=== PATIENT | female | born 1995 | race Two or more races ===

== ENCOUNTER → 2020-07-21 | Outpatient (CLI) | payer BC, SELFPAY ==
[2020-07-24 10:15] LABS: HPV Reflexed? NOT INDICATED
== END | disposition home or self-care (01) ==
PROVIDERS: Visit Provider Student in an Organized Health Care Education/Training Program
DX: Z12.4 Encounter for screening for malignant neoplasm of cervix (principal)
CPT/HCPCS: 88175; G0145

== ENCOUNTER 2025-03-18 21:43 | Inpatient (IN) | payer OTHER, SELFPAY ==
[2025-03-18] VITALS (10 sets, daily range): BP systolic 110–137; BP diastolic 62–82; PULSE 73–101; RESP 16–18; TEMP 36.5; O2SAT 93–100; BMI 30.9
[2025-03-18 22:05] LABS: ROM Internal Control Test YES-OK TO RESULT pt. (Internal QC)
[2025-03-18 22:06] LABS: Record Kit Lot#, ROM+ K3358
[2025-03-18 22:10] LABS: ROM Patient Test POSITIVE (Negative)
[2025-03-18 22:11] LABS: Hematocrit 36.4 % (37-47); Hemoglobin 12.6 g/dL (12.0-15.0); Immature Granulocytes Count 0.330 X10^3/uL (0.0-0.0); Mean Corp Hgb Conc 34.6 g/dL (32-36); Mean Corpuscular Volume 82.0 fL (81-99); Mean Platelet Vol. 11.6 fl (6.2-12.0); NRBC Flagged by Analyzer 0 % (0-5); Platelet Count 165 K/mm3 (150-450); RBC Distribution Width CV 14.1 % (11.6-14.6); RBC Distribution Width SD 41.0 fl (35.1-43.9); Red Blood Count 4.44 M/mm3 (4.2-5.4); White Blood Count 15.6 K/mm3 (4.4-11.0)
--- OUTSIDE RECORDS SUMMARY | 2025-03-18 22:25 | XMS RPT_ITS | CCD ---
Author Organization [facility] Care Team Providers Care Police Magistrate Name Role Phone Yoil Willis Unavailable Unavailable Yoli Willis Unavailable UnavailBrenton Jaramillo Unavailable Unavailable Anne-Marie Armstrong Unavailable UnavailRIVAS Ortiz Attending Unavailable RIVAS SAUCEDA Primary Care Unavailable RIVAS SAUCEDA Admitting Unavailable Yahaira Watts MD Primary Care Provider Unavailable Primary Care Provider UnavailYahaira Fagan MD Primary Care Provider Unavailable Primary Care Provider UnavailYahaira Fagan MD Primary Care Provider [phone] MARIA DEL CARMEN PÉREZ Attending Unavailable YAHAIRA WATTS Primary Care Unavailable [facility] PROVIDER, [facility] Referring Unavailable YAHAIRA WATTS Primary Care Unavailable Regina Sales Attending Unavailable Regina Sales Admitting Unavailable REGINA SALES Attending Unavailable SELF Referring Unavailable REGINA SALES Referring Unavailable DORIS RAMIREZ Attending Unavailable REGINA SALES Referring Unavailable REGINA SALES Attending Unavailable KACEY VO Attending Unavailable GILBERT TAO Attending Unavailable HAYARED, MEME Referring Unavailable KACEY VO Attending Unavailable DORIS RAMIREZ Attending Unavailable HAURY, MEME Referring Unavailable REGINA SALES Attending Unavailable REGINA SALES Attending Unavailable KACEY VO Attending Unavailable HAURY, MEME Referring Unavailable MIMI GOTTI Attending Unavailable SARATH HALE Referring Unavailable REGINA SALES Referring Unavailable SARATH HALE Attending Unavailable SARATH HALE Referring Unavailable SARATH HALE Attending Unavailable MIMI GOTTI Referring Unavailable MIMI GOTTI Referring Unavailable HAURY, MEME Attending Unavailable REGINA SALES Attending Unavailable HAURY, MEME Referring Unavailable Allergies Allergy Classification Reported Allergen(s) Allergy Type Date of Onset Reaction(s) Facility (20 sources) Clindamycin; Translations: [CLINDAMYCIN] Drug Allergy 01-08-20 20 Hives [facility] (20 sources) Sulfamethoxazole / Trimethoprim Drug Allergy 08-07-20 Hives, Swelling, Unknown [facility] Work Phone: (4 sources) Seasonal allergy Propensity to adverse reactions to drug 11-17-19 [facility] (4 sources) *Animal Dander Propensity to adverse reactions to substance 11-17-19 [facility] (20 sources) Amoxicillin; Translations: [AMOXICILLIN] Drug Allergy 04-11-20 [facility] Work Phone: (20 sources) Cat; Translations: [CATS] Allergy to substance 07-28-20 11 Other: See Comments [facility] Work Phone: (20 sources) Dog; Translations: [DOGS] Allergy to substance 07-28-20 11 Other: See Comments [facility] Work Phone: (20 sources) Doxycycline; Translations: [DOXYCYCLINE] Drug Allergy 04-11-20 20 Unknown [facility] Work Phone: (20 sources) Seasonal allergy; Translations: [SEASONAL ALLERGIES] Allergy to substance 07-28-20 11 Other: See Comments [facility] Work Phone: (1 source) Sulfamethoxazole / Trimethoprim; Translations: [SULFAMETHOXAZOLE-T RIMETHOPRIM] Drug Allergy 08-07-20 [facility] Repository Medications Current Medications Medication Drug Class(es) Dates Sig (Normalized) Sig (Original) 24 hr amphetamine aspartate 3.75 mg / amphetamine sulfate 3.75 mg / dextroamphetamine saccharate 3.75 mg / dextroamphetamine sulfate 3.75 mg extended release oral capsule (16 sources) Central Nervous System Stimulant Start: 08-25-2023 take 1 capsule by mouth once daily in the morning amphetamine-dextr oamphetamine XR 15 MG Cap SR 24HR capsule Indications: Primary narcolepsy with cataplexy , Sleep dysfunction with arousal disturbance Take 1 capsule by mouth daily every morning. 90 capsule 08/25/2023 Active Start: 04-26-2017 End: 08-07-2024 take 1 capsule by mouth every twenty-four hours amphetamine-dextroamphetamine XR (ADDERA LL XR) 15 mg 24 hr capsule Take by mouth. 04/26/2017 08/07/2024 Discontinued (Course of therapy completed) Start: 04-26-2017 End: 11-04-2022 take 1 capsule by mouth once daily in the morning amphetamine-dextroamphetamine XR 15 MG C ap SR 24HR capsule Indications: Primary narcolepsy with cataplexy , Sleep dysfunction with arousal disturbance Take 1 capsule by mouth daily every morning. 30 capsule 0 12/07/2022 Active Comment on above: Take by mouth. Take 1 capsule by mo uth once daily for 7 days. azithromycin 250 mg oral tablet (1 source) Macrolide Antimicrobial Start: 06-07-20 End: 06-12-20 azithromycin (ZITHROMAX Z-LATOYA) 250 mg tablet Indications: Lower resp. tract infection Take 2 tablets day one, then, 1 tablet daily until gone. 6 tablet 06/07/2024 06/12/2024 Active benzonatate 100 mg oral capsule (1 source) Non-narcotic Antitussive Start: 06-07-20 End: 06-17-20 take 2 capsules by mouth three times daily as needed benzonatate (TESSALON PERLE) 100 mg capsule Indications: Acute cough Take 2 capsules by mouth three times a day as needed for up to 10 days. 60 capsule 06/07/2024 06/17/2024 Active Breast Pump (8 sources) Start: 01-09-20 25 End: 01-09-20 Breast Pump Indications: 30 weeks gestation of (HCC) Use as directed 1 each 01/08/2025 01/08/2026 Active cefdinir 300 mg oral capsule (1 source) Cephalosporin Antibacterial Start: 07-06-20 23 End: 07-13-20 take 1 capsule by mouth twice daily cefdinir (OMNICEF) 300 mg capsule Take 1 capsule by mouth two times a day for 7 days. 14 capsule 0 07/06/2023 07/13/2023 Active Comment on above: Take 1 capsule by mo uth two times a day for 7 days. ibuprofen 20 mg/ml oral suspension (3 sources) Nonsteroidal Anti-inflammatory Drug take 400 mg by mouth every six hours as needed ibuprofen 100 MG/5ML oral suspension Take 20 mL by mouth every 6 hours as needed. 0 Active Rhpopspo-Oy-Zzb-Fe-F A tab (19 sources) Start: 08-07-20 take 1 tablet by mouth once daily Ulxnbcuz-Vq-Gsp-Fe-F A tab Take 1 tablet by mouth once daily. With DHA and folic acid as covered by insurance. 30 tablet 5 08/07/2024 Active Vit-Fe Uum-UN-Sjgjm (PNV Plus Multivit+DHA) 27-1 & 312 MG Misc (1 source) Start: 08-07-20 24 Vit-Fe Cwv-OP-Gtimm (PNV Plus Multivit+DHA) 27-1 & 312 MG Misc TAKE 1 TABLET AND 1 CAPSULE BY MOUTH ONCE A DAY 08/07/2024 Active Completed/Discontinued Medications Medication Drug Class(es) Dates Sig (Normalized) Sig (Original) aspirin 81 mg delayed release oral tablet (6 sources) Platelet Aggregation Inhibitor, Nonsteroidal Anti-inflammatory Drug Start: 08-07-2024 End: 10-29-2024 take 1 tablet by mouth once daily aspirin, enteric coated (ECOTRIN LOW STRENGTH) 81 mg EC tablet Take 1 tablet by mouth once daily. 90 tablet 3 08/07/2024 10/29/2024 Discontinued doxycycline hyclate 100 mg oral tablet (1 source) Tetracycline-class Drug Start: 09-24-2019 take 1 tablet by mouth twice daily Doxycycline Monohydrate 100 MG Oral Tablet TAKE 1 TABLET TWICE DAILY. Quantity: 14 Refills: 0 Anne-Marie Armstrong DO Start : 24-Sep-2019 Active Ethinyl Estradiol / Norgestrel (4 sources) Estrogen Start: 05-04-2019 End: 11-04-2022 take 1 tablet by mouth once daily CRYSELLE 0.3-30 mg-mcg per tablet Take 1 tablet by mouth once daily. 0 05/04/2019 11/04/2022 Discontinued Start: 12-18-2018 Cryselle-28 0. 3-30 MG-MCG Oral Tablet Quantity: 56 Refills: 0 DO Start : 18-Dec-2018 Active Start: 12-18-2018 Cryselle-28 0. 3-30 MG-MCG Oral Tablet Quantity: 56 Refills: 0 Start : 18-Dec-2018 Active Comment on above: Take 1 tablet by serge th once daily. famotidine 20 mg oral tablet (3 sources) Histamine-2 Receptor Antagonist Start: End: take 1 tablet by mouth twice daily famotidine (PEPCID) 20 mg tablet Take 1 tablet by mouth two times a day. 02/22/2025 03/04/2025 Discontinued (Discontinued by Patient) fluconazole 150 mg oral tablet (1 source) Azole Antifungal Start: take 1 tablet by mouth once Fluconazole 150 MG Oral Tablet TAKE 1 TABLET 1 TIME ONLY. Quantity: 1 Refills: 1 Brenton Boggs MD Start : 28-Dec-2019 Active loratadine 10 mg oral tablet (6 sources) Start: End: take 1 tablet by mouth once daily as needed loratadine (CLARITIN) 10 mg tablet Take 1 tablet by mouth once daily as needed. FOR ALLERGY SYMPTOMS 30 tablet 0 03/10/2016 08/07/2024 Discontinued (Course of therapy completed) Comment on above: Take 1 tablet by serge th once daily as needed. FOR ALLERGY SYMPTOMS mupirocin 0.02 mg/mg topical ointment (1 source) RNA Synthetase Inhibitor Antibacterial Start: Mupirocin 2 % External Ointment APPLY A SMALL AMOUNT 3 TIMES DAILY DIRECTED for 7 days Quantity: 1 Refills: 0 Patti Anne-Marie RIZZO Start : 24-Sep-2019 Active 22 GM Tube phenazopyridine hydrochloride 100 mg oral tablet (1 source) Start: End: take 1 tablet by mouth every eight hours as needed phenazopyridine (PYRIDIUM) 100 mg tablet Take 1 tablet by mouth three times daily as needed. 12 tablet 0 04/11/2020 11/04/2022 Discontinued Comment on above: Take 1 tablet by serge th three times daily as needed. PNV no.66-iron,carbonyl-FA -dha 20 mg iron- 1 mg-320 mg cap (5 sources) End: take 1 capsule by mouth once daily PNV no.66-iron,carbonyl-FA -dha 20 mg iron- 1 mg-320 mg cap Take 1 capsule by mouth once daily. 10/29/2024 Discontinued take 1 capsule by mo uth once daily PNV no.66-iron,tdkzlcrn-FY-wcq 20 mg iro n- 1 mg-320 mg cap Take 1 capsule by mouth once daily. Active vit37/iron/folic acid (PRENATA ORAL) (1 source) End: 08-07-2024 take 1 capsule by mouth once daily vit37/iron/folic acid (PRENATA ORAL) Take 1 capsule by mouth once daily. 08/07/2024 Discontinued Problems Active Problems Problem Classification Problem Date Documented Date Episodic/Chronic Allergic reactions (16 sources) Allergy to amoxicillin; Translations: [Allergy status to penicillin] Onset: 11-26-2024 11-26-2024 Episodic E Codes: Adverse effects of medical drugs (2 sources) Penicillin adverse reaction; Translations: [Adverse effect of penicillins, sequela] Onset: 01-10-2025 01-10-2025 Episodic Mycoses (1 source) Candidiasis of vagina; Translations: [Yeast vaginitis] Episodic Other connective tissue disease (3 sources) Impingement syndrome of shoulder region; Translations: [Impingement syndrome of left shoulder] Episodic Other inflammatory condition of skin (1 source) Pityriasis rosea; Translations: [Pityriasis rosea] Chronic Other lower respiratory disease (1 source) Lower respiratory tract infection; Translations: [Unspecified acute lower respiratory infection] 06-07-2024 Episodic Other lower respiratory disease (1 source) Cough; Translations: [Acute cough] 06-07-2024 Episodic Other nervous system disorders (3 sources) Narcolepsy; Translations: [Narcolepsy] Chronic Other nervous system disorders (20 sources) Cataplexy and narcolepsy; Translations: [Narcolepsy with cataplexy] Onset: 07-29-2016 Chronic Other nervous system disorders (3 sources) Superficial peroneal neuropathy; 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, right lower limb] Onset: 01-05-2018 01-05-2018 Chronic Other nervous system disorders (1 source) Disorder of right superficial peroneal nerve; 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, right lower limb] Onset: 01-05-2018 01-05-2018 Chronic Other nervous system disorders (1 source) Narcolepsy with cataplexy; Translations: [Narcolepsy with cataplexy] Onset: 09-05-2024 Chronic Other non-traumatic joint disorders (3 sources) Disorder of acromioclavicular joint; Translations: [AC joint arthropathy] Episodic Other and delivery including normal (20 sources) First trimester ; Translations: [Encounter for supervision of normal first , first trimester] Onset: 08-07-2024 08-07-2024 Episodic Other screening for suspected conditions (not mental disorders or infectious disease) (9 sources) Cancer cervix screening status; Translations: [Encounter for screening for malignant neoplasm of cervix] Onset: 09-04-2024 08-07-2024 Episodic Other skin disorders (1 source) Folliculitis; Translations: [Folliculitis] Episodic Other upper respiratory infections (2 sources) Viral upper respiratory tract infection; Translations: [Acute upper respiratory infection, unspecified] 07-04-2023 Episodic Otitis media and related conditions (1 source) Acute left otitis media; Translations: [Otitis media, unspecified, left ear] 07-06-2023 Episodic Residual codes; unclassified (2 sources) Sleep dysfunction with arousal disturbance; Translations: [Other sleep disorders] Chronic Residual codes; unclassified (1 source) Gestation period, 8 weeks; Translations: [8 weeks gestation of ] 08-06-2024 Episodic Residual codes; unclassified (2 sources) Gestation period, 12 weeks; Translations: [12 weeks gestation of ] 09-04-2024 Episodic Residual codes; unclassified (3 sources) Gestation period, 16 weeks; Translations: [16 weeks gestation of ] 10-02-2024 Episodic Residual codes; unclassified (2 sources) Gestation period, 20 weeks; Translations: [20 weeks gestation of ] 10-29-2024 Episodic Residual codes; unclassified (2 sources) Gestation period, 24 weeks; Translations: [24 weeks gestation of ] 11-26-2024 Episodic Residual codes; unclassified (1 source) Gestation period, 28 weeks; Translations: [28 weeks gestation of ] 12-24-2024 Episodic Residual codes; unclassified (2 sources) Gestation period, 30 weeks; Translations: [30 weeks gestation of ] 01-10-2025 Episodic Residual codes; unclassified (1 source) Gestation period, 33 weeks; Translations: [33 weeks gestation of ] 01-30-2025 Episodic Residual codes; unclassified (1 source) Gestation period, 35 weeks; Translations: [35 weeks gestation of ] 02-13-2025 Episodic Residual codes; unclassified (1 source) Gestation period, 37 weeks; Translations: [37 weeks gestation of ] 02-22-2025 Episodic Residual codes; unclassified (2 sources) Gestation period, 38 weeks; Translations: [38 weeks gestation of ] 03-01-2025 Episodic Residual codes; unclassified (1 source) 40 weeks gestation of ; Translations: [40 weeks gestation of (HCC)] Onset: 03-18-2025 Episodic Residual codes; unclassified (1 source) 39 weeks gestation of ; Translations: [39 weeks gestation of (HCC)] Onset: 03-13-2025 Episodic Residual codes; unclassified (1 source) 38 weeks gestation of ; Translations: [38 weeks gestation of (HCC)] Onset: 03-04-2025 Episodic Residual codes; unclassified (1 source) 37 weeks gestation of ; Translations: [37 weeks gestation of (HCC)] Onset: 02-22-2025 Episodic Residual codes; unclassified (1 source) 35 weeks gestation of ; Translations: [35 weeks gestation of (HCC)] Onset: 02-13-2025 Episodic Residual codes; unclassified (1 source) 33 weeks gestation of ; Translations: [33 weeks gestation of (HCC)] Onset: 01-30-2025 Episodic Residual codes; unclassified (2 sources) 30 weeks gestation of ; Translations: [ with 30 completed weeks gestation (HCC)] Onset: 01-08-2025 Episodic Residual codes; unclassified (1 source) 24 weeks gestation of ; Translations: [24 weeks gestation of (HCC)] Onset: 12-24-2024 Episodic Residual codes; unclassified (1 source) 28 weeks gestation of ; Translations: [28 weeks gestation of (HCC)] Onset: 12-24-2024 Episodic Syncope (2 sources) Vasovagal syncope; Translations: [Syncope and collapse] Onset: 01-10-2025 01-10-2025 Episodic Unclassified (2 sources) Invalid ICD10 Description; Translations: [Invalid ICD10 Description] Onset: 09-02-2020 Unclassified (1 source) COVID-19; Translations: [COVID-19] Onset: 09-02-2020 Unclassified (19 sources) [facility] Education - COMMON Onset: 08-07-2024 08-07-2024 Unclassified (19 sources) Education - [place] Onset: 08-07-2024 08-07-2024 Past or Other Problems Problem Classification Problem Date Documented Da te Episodic/Chronic Fracture of lower limb (4 sources) Closed fracture ankle, lateral malleolus, low ; Translations: [Displaced fracture of lateral malleolus of right fibula, sequela] Onset: 01-05-2018 01-05-2018 Episodic Other non-traumatic joint disorders (20 sources) Pain in lower limb; Translations: [Pain in unspecified knee] Onset: 06-14-2011 Resolved: 10-29-2024 06-14-2011 Episodic Other skin disorders (20 sources) Acne; Translations: [Other acne] Onset: 03-05-2015 03-05-2015 Episodic Residual codes; unclassified (20 sources) Daytime somnolence; Translations: [Other hypersomnia] Onset: 02-12-2016 Resolved: 10-02-2024 02-12-2016 Chronic Residual codes; unclassified (1 source) 16 weeks gestation of ; Translations: [16 weeks gestation of ] Onset: 10-29-2024 Episodic Residual codes; unclassified (1 source) 12 weeks gestation of ; Translations: [12 weeks gestation of ] Onset: 09-04-2024 Episodic Residual codes; unclassified (1 source) 8 weeks gestation of ; Translations: [8 weeks gestation of ] Onset: 08-07-2024 Episodic Unclassified (4 sources) Onset: 01-27-2018 Resolved: 01-27-2018 01-27-2018 NEGATED: Highlighted row has not occurred!Residual codes; unclassified (2 sources) Disease Episodic Results Test Name Value Interpretation Reference Range Facility URINE OB DIP B/Oon 5 Glucose Ql (U) Negative Neg mg/dL [facility] Protein.monoclonal (U) [Mass/Vol] Negative Neg mg/dL [facility] URINE OB DIP B/Oon 5 Glucose Ql (U) Negative Neg mg/dL [facility] Interpretation and review of laboratory results Normal [facility] Protein.monoclonal (U) [Mass/Vol] Negative Neg mg/dL [facility] URINE OB DIP B/Oon 5 Glucose Ql (U) Negative Neg mg/dL [facility] Interpretation and review of laboratory results Normal [facility] Protein.monoclonal (U) [Mass/Vol] Negative Neg mg/dL [facility] ROUTINE, GROUP B ST REPTOCOCCUS BY PCRon 02-13-2025 ROUTINE, GROUP B STREPTOCOCCUS BY PCR Not detected Normal [facility] Comment on above: Performed By: #### T SPN #### CC [facility] BLOOD BANK [facility] [id number] [address] [place] [address] STATES OF [facility] URINE OB DIP B/Oon 5 Glucose Ql (U) Negative Neg mg/dL [facility] Interpretation and review of laboratory results Normal [facility] Protein.monoclonal (U) [Mass/Vol] Negative Neg mg/dL [facility] CNOVon 01-10-2025 CNOV Office Visit (ALAPW) -- TIFFANIE MERCADO ([id number]) 1995 F Date Time Provider Department 01/10/25 1:00 PM GILBERT TAO ALAPW During your visit today, we recorded the following information about you: Pulse Respiration Blood pressure Weight 79/minute 16/minute 105/68 89.7 kg Shannen Swift LPN 01/10/2025 4:15 PM Signed Patients OB referred patient to have penicillin testing. Patient had a hives and throat swelling when taking multiple antibiotics. Patient unsure which medication specifically caused the reaction. Tara Lisa, RN 01/10/2025 4:15 PM Signed Called to room, patient passed out in her chair, garbled speech. Assisted patient to the floor with Shannen Swift LPN. Elevated feet, vitals HR 74 BP 118/75 Pox 98.Patient given water. Beginning to speak more clearly within approx 5 min. Vitals HR 81 BP 105/74 Pox Gilbert Tao DO 01/10/2025 4:15 PM Signed Allergy and Immunology 01/10/2025 REFERRING PROVIDER: Meme Valero APRN.PROFESSOR OF COUNSELING Consultation requested for an allergy/immunology evaluation. My final impression and recommendations will be communicated back to the requesting physician by way of shared medical record, fax, or US mail. CHIEF COMPLAINT: drug allergy evaluation HISTORY OF PRESENT ILLNESS: Drug Reaction Index reaction date: in her early 20s Index reaction medication/dose#: unsure. She was being treated for frequent staph infections and had been given numerous different courses of antibiotics. Not sure of exact symptoms. Bactrim, doxy, amoxicillin, and clindamycin all listed. She recalls some causing hives and possible that amoxicillin caused diffuse hives and throat swelling. Denies tongue, lip, eye swelling. Denies respiratory, CV, or GI symptoms. No blistering or sloughing. No mucosal involvement. Unsure of what dose # Timing of symptom onset: cannot recall details History of narcolepsy, well controlled. No known needlephobia Did report recent onset of nasal congestion. Thought it was allergies at first on Tuesday, but then symptoms seemed to persist. No fever, cough, GI symptoms MY[facility] COLLATERAL ALLERGY HISTORY Question 01/10/2025 12:54 PM EDT - Filed by Shannen Swift LPN Do you have or have you ever been diagnosed with allergic rhinitis? No Have you ever been skin tested for allergies? No Do you have asthma? No Do you have or have you ever been diagnosed with eczema or atopic dermatitis? No Do you get frequent sinus infections? No Do you have nasal polyps? No Do you have or have you ever been diagnosed with urticaria / hives? No Do you have or have you ever been diagnosed with angioedema? No Do you have or have you ever been diagnosed with food allergy? No Do you have or have you ever been diagnosed with stinging insect allergy (bee, wasp, yellow jacket, hornet)? No Are you allergic to Penicillin antibiotics? 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 PAST MEDICAL HISTORY Diagnosis Date Narcolepsy (HCC) FAMILY HISTORY Problem Relation Age of Onset Aneurysm Mother 45 AVMalformation other (brain tumor) Mother 44 Hemangioblastoma Hypertension Maternal Grandmother Hypertension Maternal Grandfather Diabetes Paternal Grandmother other (high cholesterol) Paternal Grandmother Diabetes Maternal Uncle type 1 Heart Maternal Uncle heart attack age 46 years PAST SURGICAL HISTORY Procedure Laterality Date PAST SURGICAL HISTORY OF abscess of groin drained when an infant PAST SURGICAL HISTORY OF 01/27/2018 right ankle, hardware removed from fracture of 2015 REPAIR OF ANKLE FRACTURE Right 05/2015 Current Outpatient Medications Medication Sig Plgaconv-Op-Idf-Fe-FA tab Take 1 tablet by mouth once daily. With DHA and folic acid as covered by insurance. Breast Pump Use as directed No current facility-administered medications for this visit. ALLERGIES Allergen Reactions Amoxicillin Hives Pt reported throat swelling Bactrim [Sulfametho* Hives Cats Other: See Comments Sneezing, itchy eyes, cough Clindamycin Hives Dogs Other: See Comments Sneezing, itchy eyes, cough Doxycycline Unknown Seasonal Allergies Other: See Comments Sneezing, itchy eyes PHYSICAL EXAM: BP 105/68 Pulse 79 Resp 16 Wt 89.7 kg (197 lb 12.8 oz) LMP 06/08/2024 SpO2 97% BMI 28.80 kg/m? GENERAL: alert, oriented, cooperative with exam HEAD: atraumatic, normocephalic EYES: conjunctivae normal, extraocular movements in tact, pupils equal, round, and reactive, EARS: ext (more content not included)... Normal [facility] 01-10-2025 CNPN Telephone (OBGYWM) -- TIFFANIE MERCADO ([id number]) 1995 F Date Time Provider Department 01/10/25 DORIS RAMIREZ During your visit today, we recorded the following information about you: Jill Suarez RN 01/10/2025 3:47 PM Signed Patient is 30w6d. Patient was seen for allergy testing today. Notes from Dr in office: Called to room, patient passed out in her chair, garbled speech. Assisted patient to the floor with Shannen Swift LPN. Elevated feet, vitals HR 74 BP 118/75 Pox 98.Patient given water. Beginning to speak more clearly within approx 5 min. Vitals HR 81 BP 105/74 Pox -see Epic notes. Patient denies any injury to abdomen or any other part of her body. Baby is active. Denies any bleeding, or loss of fluids, or CTX. Next appointment 01/30. Patient wondering if any concerns regarding baby. Patient reassured. She is to call/come in if baby is not active, loss of fluids, bleeding, development of CTX or PRN problems. Recommended patient push fluids. Call is any further advice Doris Ramirez MD 01/10/2025 3:53 PM Signed Rest and stay hydrated. No further advice Allergies As of Date: 01/10/2025 Noted Allergy Reaction AMOXICILLIN 04/11/2020 4 - Hives Comments: Pt reported throat swelling BACTRIM (SULFAMETHOXAZOLE-TRIMETH* 08/07/2019 4 - Hives CATS 07/28/2011 14 - Other: See Comments Comments: Sneezing, itchy eyes, cough CLINDAMYCIN 01/08/2020 4 - Hives DOGS 07/28/2011 14 - Other: See Comments Comments: Sneezing, itchy eyes, cough DOXYCYCLINE 04/11/2020 16 - Unknown SEASONAL ALLERGIES 07/28/2011 14 - Other: See Comments Comments: Sneezing, itchy eyes Date Reviewed: 01/10/2025 Reviewed by: Shannen Swift LPN - Fully Assessed Reason for Visit: Syncope [106] Prescriptions as of 01/10/2025 - Breast Pump Use as directed - Zpganpuz-Gj-Zjd-Fe-FA tab Take 1 tablet by mouth once daily. With DHA and folic acid as covered by insurance. 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 Encounter for supervision of normal i*08/07/2024 Penicillin allergy [Z88.0] 01/08/2025 Encounter Status:Closed by POONAM JOHNSON on 01/10/25 Normal [facility] GESTATIONAL GLUCOSE SCREEN, 1-HOUR, 50 GRAM, NON-FASTINGon 12-27-2024 Glucose [Mass/Vol] 116 mg/dL Normal 74-134 [facility] Comment on above: Order Comment: Roldan morgan Type: BLOOD SPECIMEN [facility]ing [facility] Address: [address] [place] [address] Result Comment: [facility] Congress of Obstetricians and Gynecologists (Zoran/Rosio) guidelines state a gestational diabetes mellitus positive screen is made, in women not previously diagnosed with overt diabetes, when the 1 hr plasma glucose level is equal to or above 140 mg/dL. [facility] Procurement Inspector and [facility] [place] recommends a 135 mg/dL cutoff. Performed By: #### T SPN #### [facility] CLIA [id number] [address] [place], [place] [address] [address] [place] CBC W Auto Differential pane l (Bld)on 12-24-2024 Basophils (Bld) [#/Vol] 0.05 10*3/uL Normal <0.11 [facility] Comment on above: Order Comment: Speci men Type: BLOOD SPECIMENOrdering Facility: [facility] Address: [address] [place] [address] Performed By: #### 5 7021-8 ####[facility] LABCLIA [id number] [place] [address] [place] Basophils/100 WBC (Bld) 0.4 % Normal [facility] Comment on above: Order Comment: Speci men Type: BLOOD SPECIMENOrdering Facility: [facility] Address: [address] [place] [address] Performed By: #### 5 7021-8 ####[facility] LABCLIA [id number] [place] [address] [place] Differential cell count method Nom (Bld) Auto Normal [facility] Comment on above: Order Comment: Speci men Type: BLOOD SPECIMENOrdering Facility: [facility] Address: [address] [place] [address] Performed By: #### 5 7021-8 ####[facility] LABCLIA [id number] [place] [address] [place] Eosinophils (Bld) [#/Vol] 0.18 10*3/uL Normal <0.46 [facility] Comment on above: Order Comment: Speci men Type: BLOOD SPECIMENOrdering Facility: [facility] Address: [address] [place] [address] Performed By: #### 5 7021-8 ####[facility] LABCLIA [id number] [place] [address] [place] Eosinophils/100 WBC (Bld) 1.3 % Normal [facility] Comment on above: Order Comment: Speci men Type: BLOOD SPECIMENOrdering Facility: [facility] Address: [address] [place] [address] Performed By: #### 5 7021-8 ####[facility] LABCLIA [id number] [place] [address] [place] Erythrocyte distribution width (RBC) [Ratio] 12.6 % Normal 11.5-15.0 [facility] Comment on above: Order Comment: Speci men Type: BLOOD SPECIMENOrdering Facility: [facility] Address: [address] [place] [address] Performed By: #### 5 7021-8 ####[facility] LABCLIA [id number] [place] [address] [place] Hematocrit (Bld) [Volume fraction] 35.9 % Low 36.0-46.0 [facility] Comment on above: Order Comment: Speci men Type: BLOOD SPECIMENOrdering Facility: [facility] Address: [address] [place] [address] Performed By: #### 5 7021-8 ####[facility] LABCLIA [id number] [place] [address] [place] Hemoglobin (Bld) [Mass/Vol] 12.1 g/dL Normal 11.5-15.5 [facility] Comment on above: Order Comment: Speci men Type: BLOOD SPECIMENOrdering Facility: [facility] Address: [address] [place] [address] Performed By: #### 5 7021-8 ####[facility] LABCLIA [id number] [place] [address] [place] Immature granulocytes (Bld) [#/Vol] 0.20 10*3/uL High <0.10 [facility] Comment on above: Order Comment: Speci men Type: BLOOD SPECIMENOrdering Facility: [facility] Address: [address] [place] [address] Performed By: #### 5 7021-8 ####[facility] LABCLIA [id number] [place] [address] [place] Immature granulocytes/100 WBC (Bld) 1.5 % Normal [facility] Comment on above: Order Comment: Speci men Type: BLOOD SPECIMENOrdering Facility: [facility] Address: [address] [place] [address] Performed By: #### 5 7021-8 ####[facility] LABCLIA [id number] [place] [address] [place] Lymphocytes (Bld) [#/Vol] 1.85 10*3/uL Normal 1.00-4.00 [facility] Comment on above: Order Comment: Speci men Type: BLOOD SPECIMENOrdering Facility: [facility] Address: [address] [place] [address] Performed By: #### 5 7021-8 ####[facility] LABIA [id number] [place] [address] [place] Lymphocytes/100 WBC (Bld) 13.5 % Normal [facility] Comment on above: Order Comment: Speci men Type: BLOOD SPECIMENOrdering Facility: [facility] Address: [address] [place] [address] Performed By: #### 5 7021-8 ####[facility] LABIA [id number] [place] [address] [place] MCH (RBC) [Entitic mass] 29.3 pg Normal 26.0-34.0 [facility] Comment on above: Order Comment: Speci men Type: BLOOD SPECIMENOrdering Facility: [facility] Address: [address] [place] [address] Performed By: #### 5 7021-8 ####[facility] LABIA [id number] [place] [address] [place] MCHC (RBC) [Mass/Vol] 33.7 g/dL Normal 30.5-36.0 [facility] Comment on above: Order Comment: Speci men Type: BLOOD SPECIMENOrdering Facility: [facility] Address: [address] [place] [address] Performed By: #### 5 7021-8 ####[facility] LABCLIA [id number] [place] [address] [place] MCV (RBC) [Entitic vol] 86.9 fL Normal 80.0-100.0 [facility] Comment on above: Order Comment: Speci men Type: BLOOD SPECIMENOrdering Facility: [facility] Address: [address] [place] [address] Performed By: #### 5 7021-8 ####[facility] LABCLIA [id number] [address] [place] [address] [place] Monocytes (Bld) [#/Vol] 0.86 10*3/uL Normal <0.87 [facility] Comment on above: Order Comment: Speci men Type: BLOOD SPECIMENOrdering Facility: [facility] Address: [address] [place] [address] Performed By: #### 5 7021-8 ####[facility] LABCLIA [id number] [address], [place] [address] [place] Monocytes/100 WBC (Bld) 6.3 % Normal [facility] Comment on above: Order Comment: Speci men Type: BLOOD SPECIMENOrdering Facility: [facility] Address: [address] [place] [address] Performed By: #### 5 7021-8 ####[facility] LABCLIA [id number] [place] [address] [place] Neutrophils (Bld) [#/Vol] 10.59 10*3/uL High 1.45-7.50 [facility] Comment on above: Order Comment: Speci men Type: BLOOD SPECIMENOrdering Facility: [facility] Address: [address] [place] [address] Performed By: #### 5 7021-8 ####[facility] LABCLIA [id number] [place] [address] [place] Neutrophils/100 WBC (Bld) 77.0 % Normal [facility] Comment on above: Order Comment: Speci men Type: BLOOD SPECIMENOrdering Facility: [facility] Address: [address] [place] [address] Performed By: #### 5 7021-8 ####[facility] LABCLIA [id number] [place] [id number] [place] Nucleated RBC (Bld) [#/Vol] 10*3/uL Normal <0.01 [facility] Comment on above: Order Comment: Speci men Type: BLOOD SPECIMENOrdering Facility: [facility] Address: [address] [place] [address] Performed By: #### 5 7021-8 ####[facility] LABIA [id number] [place] [address] [place] Nucleated RBC/100 WBC (Bld) [Ratio] 0.0 /100 WBC Normal [facility] Comment on above: Order Comment: Speci men Type: BLOOD SPECIMENOrdering Facility: [facility] Address: [address] [place] [address] Performed By: #### 5 7021-8 ####[facility] LABIA [id number] [place] [address] [place] Platelet mean volume (Bld) [Entitic vol] 11.1 fL Normal 9.0-12.7 [facility] Comment on above: Order Comment: Speci men Type: BLOOD SPECIMENOrdering Facility: [facility] Address: [address] [place] [address] Performed By: #### 5 7021-8 ####[facility] LABIA [id number] [place] [address] [place] Platelets (Bld) [#/Vol] 151 10*3/uL Normal 150-400 [facility] Comment on above: Order Comment: Speci men Type: BLOOD SPECIMENOrdering Facility: [facility] Address: [address] [place] [address] Performed By: #### 5 7021-8 ####[facility] LABIA [id number] [address] [address] [place] RBC (Bld) [#/Vol] 4.13 10*6/uL Normal 3.90-5.20 [facility] Comment on above: Order Comment: Speci men Type: BLOOD SPECIMENOrdering Facility: [facility] Address: [address] [place] [address] Performed By: #### 5 7021-8 ####[facility] [id number] [place] [address] [place] WBC (Bld) [#/Vol] 13.73 10*3/uL High 3.70-11.00 [facility] Comment on above: Order Comment: Speci men Type: BLOOD SPECIMENOrdering Facility: [facility] Address: [address] [place] [address] Performed By: #### 5 7021-8 ####[facility] [id number] [place] [id number] [place] Reagin and Treponema pallidu m IgG and IgM [Interp]on 12-24-2024 T. pallidum IgG+IgM IA Ql (S) Non-Reactive Normal Nonreactive [facility] Comment on above: Order Comment: Speci men Type: BLOOD SPECIMENOrdering Facility: [facility] Address: [address] [place] [address] Performed By: #### 7 3752-8 ####[facility] [id number] [place] [address] [place] Reagin+T pallidum IgG+IgM Se rPl-Impon 12-24-2024 Reagin and Treponema pallidum IgG and IgM [Interp] Cannot exclude recent Treponemal infection if specimen collected within 7-10 days after appearance of suspect lesions or 2-3 weeks after an exposure. Clinical correlation is required. Normal [facility] Comment on above: Order Comment: Speci men Type: BLOOD SPECIMENOrdering Facility: [facility] Address: [address] [place] [address] Performed By: #### 7 3752-8 ####[facility] LAB[facility] [id number] [place] [id number] [place] Examination level ultrasound on 11-26-2024 [facility] Radiology Study observation (narrative) [facility] Examination level ultrasound on 10-30-2024 Indication Standard anatomic survey Impression REMOTE READ The patient is referred for a standard anatomic survey. - Single, live, intrauterine . - biometry is consistent with the established gestational age. - No malformations were visualized on a standard anatomic survey, although some anatomical structures were suboptimally seen as detailed below. - The amniotic fluid volume is normal amount. - The placenta is anterior, fundal. - The Transabdominal cervical length measures 36.6 mm with no evidence of funneling or other dynamic changes. - Not all structural malformations can be detected by ultrasound examination. Recommendations Follow up anatomy scan in 2-3 weeks Maternal Assessment Height 175 cm Height (ft) 5 ft Height (in) 9 in Physical Exam Initial weight (lb) 175 lb Initial BMI 25.84 kg/m Maternal assessment other: 1 Para 0 Method Transabdominal ultrasound examination. View: Suboptimal view: limited by position Finn . Number of fetuses: 1 Dating LMP on: 06/08/2024 GA by LMP 20 w + 3 d MARTI by LMP: 03/15/2025 GA by prior assessment 20 w + 3 d MARTI by prior assessment: 03/15/2025 Ultrasound examination on: 10/29/2024 GA by U/S based upon: AC, BPD, Femur, HC GA by U/S 20 w + 6 d MARTI by U/S: 03/12/2025 Assigned: based on stated MARTI, selected on 10/29/2024 Assigned GA 20 w + 3 d Assigned MARTI: 03/15/2025 General Evaluation Cardiac activity present. FHR 158 bpm. movements: present. Presentation: breech Placenta: Placental site: anterior, fundal Umbilical cord: Cord vessels: 3 vessel cord Amniotic fluid: Amount of AF: normal amount. MVP 4.2 cm Growth Overview Exam date GA BPD (mm) HC (mm) AC (mm) FL (mm) HL (mm) EFW (g) 10/29/2024 20w 3d 47.7 49% 185.4 64% 164.1 77% 33 60% 32.9 75% 387 71% Biometry Standard BPD 47.7 mm 20w 3d 49% Hadlock OFD 67.7 mm 21w 1d 96% Nicolaides HC 185.4 mm 20w 6d 64% Winter Cerebellum tr 22.4 mm 20w 6d 85% Hill Nuchal fold 4.5 mm AC 164.1 mm 21w 3d 77% Hadlock Femur 33.0 mm 20w 3d 60% Winter Humerus 32.9 mm 21w 1d 75% Winter EFW 387 g 20w 6d 71% Hadlock EFW (lb) 0 lb EFW (oz) 14 oz EFW by: Hadlock (HC-AC-FL) Extended Mural Artist 6.9 mm CM 3.7 mm 11% Nicolaides Extremities / Bony Struc FL / HC 0.18 19% Hadlock Other Structures FHR 158 bpm Anatomy Cranium: normal Lateral ventricles: normal Choroid plexus: normal Midline falx: normal Cavum septi pellucidi: normal Cerebellum: normal Cisterna magna: normal Head / Neck Vermis: Normal but not required for a standard anatomy exam Neck: Normal but not required for a standard anatomy exam Nuchal fold: Normal but not required for a standard anatomy exam Lips: normal Profile: Normal but not required for a standard anatomy exam Nose: Normal but not required for a standard anatomy exam Face Maxilla: Normal but not required for a standard anatomy exam Mandible: Normal but not required for a standard anatomy exam Orbits: Normal but not required for a standard anatomy exam Lens: Normal but not required for a standard anatomy exam 4-chamber view: normal RVOT view: normal LVOT view: normal 3-vessel view: normal 9-[id number]-[id number] view: normal Heart / Thorax Situs: situs solitus (normal) Aortic arch view: Normal but not required for a standard anatomy exam SVC: Normal but not required for a standard anatomy exam IVC: Normal but not required for a standard anatomy exam Cardiac axis: normal Rt lung: Normal but not required for a standard anatomy exam Lt lung: Normal but not required for a standard anatomy exam Diaphragm: Normal but not required for a standard anatomy exam Cord insertion: normal Stomach: normal Kidneys: normal Bladder: normal Genitals: normal Abdomen Abdom. wall: normal Cervical spine: suboptimally visualized Thoracic spine: suboptimally visualized Lumbar spine: suboptimally visualized Sacral spine: suboptimally visualized Arms: normal Legs: normal Rt upper arm: normal Rt forearm: normal Rt hand: normal Rt fingers: normal Lt upper arm: normal Lt forearm: normal Lt hand: normal Lt fingers: normal Rt upper leg: normal Rt lower leg: normal Rt foot: normal Lt upper leg: normal Lt lower leg: normal Lt foot: normal Gender: Unspecified Wants to know sex: no Maternal Structures Uterus / Cervix Uterus: Visualized Cervix: Visualized Approach: Transabdominal Cervical length 36.6 mm Other: Patient declined transvaginal ultrasound for cervical length. Ovaries / Tubes / Adnexa Rt ovary: Visualized Lt ovary: Visualized Performed By: Poonam Harrington RDMS, RVT Read By: Patrice Ibrahim M.D. MATERNAL MEDICINE [facility] Examination level ultrasound on 10-29-2024 Radiology Study observation (narrative) [facility] CBC W Auto Diff [place] 2024 Hemoglobin (Bld) [Mass/Vol] 13.7 g/dL Normal 11.5-15.5 [facility] Comment on above: Order Comment: Speci men Type: BLOOD SPECIMENOrdering Facility: [facility] Address: [address] [place] [address] Performed By: #### 5 7021-8 ####[facility] LABCLIA [id number] [place] [address] [place] Performed By: #### L [id number] ####[facility] LABCLIA [id number] [place] [address] [place] CBC W Auto Differential pane l (Bld)on 09-04-2024 Basophils (Bld) [#/Vol] 0.04 10*3/uL Normal <0.11 [facility] Comment on above: Order Comment: Speci men Type: BLOOD SPECIMENOrdering Facility: [facility] Address: [address] [place] [address] Performed By: #### 5 7021-8 ####[facility] LABCLIA [id number] [address] [place] Basophils/100 WBC (Bld) 0.4 % Normal [facility] Comment on above: Order Comment: Speci men Type: BLOOD SPECIMENOrdering Facility: [facility] Address: [address] [place] [address] Performed By: #### 5 7021-8 ####[facility] LABIA [id number] [place] [id number] [place] Differential cell count method Nom (Bld) Auto Normal [facility] Comment on above: Order Comment: Speci men Type: BLOOD SPECIMENOrdering Facility: [facility] Address: [address] [place] [address] Performed By: #### 5 7021-8 ####[facility] LABCLIA [id number] [place] [address] [place] Eosinophils (Bld) [#/Vol] 0.04 10*3/uL Normal <0.46 [facility] Comment on above: Order Comment: Speci men Type: BLOOD SPECIMENOrdering Facility: [facility] Address: [address] [place] [address] Performed By: #### 5 7021-8 ####[facility] LABCLIA [id number] [place] [address] [place] Eosinophils/100 WBC (Bld) 0.4 % Normal [facility] Comment on above: Order Comment: Speci men Type: BLOOD SPECIMENOrdering Facility: [facility] Address: [address] [place] [address] Performed By: #### 5 7021-8 ####[facility] LABCLIA [id number] [place] [address] [place] Erythrocyte distribution width (RBC) [Ratio] 12.9 % Normal 11.5-15.0 [facility] Comment on above: Order Comment: Speci men Type: BLOOD SPECIMENOrdering Facility: [facility] Address: [address] [place] [address] Performed By: #### 5 7021-8 ####[facility] LABCLIA [id number] [place] [address] [place] Hematocrit (Bld) [Volume fraction] 40.0 % Normal 36.0-46.0 [facility] Comment on above: Order Comment: Speci men Type: BLOOD SPECIMENOrdering Facility: [facility] Address: [address] [place] [address] Performed By: #### 5 7021-8 ####[facility] LABCLIA [id number] [place] [address] [place] Immature granulocytes (Bld) [#/Vol] 0.05 10*3/uL Normal <0.10 [facility] Comment on above: Order Comment: Speci men Type: BLOOD SPECIMENOrdering Facility: [facility] Address: [address] [place] [address] Performed By: #### 5 7021-8 ####[facility] LABCLIA [id number] [address] [place] Immature granulocytes/100 WBC (Bld) 0.5 % Normal [facility] Comment on above: Order Comment: Speci men Type: BLOOD SPECIMENOrdering Facility: [facility] Address: [address] [place] [address] Performed By: #### 5 7021-8 ####[facility] LABCLIA [id number] [place] [address] [place] Lymphocytes (Bld) [#/Vol] 1.76 10*3/uL Normal 1.00-4.00 [facility] Comment on above: Order Comment: Speci men Type: BLOOD SPECIMENOrdering Facility: [facility] Address: [address] [place] [address] Performed By: #### 5 7021-8 ####[facility] LABCLIA [id number] [place] [address] [place] Lymphocytes/100 WBC (Bld) 18.6 % Normal [facility] Comment on above: Order Comment: Speci men Type: BLOOD SPECIMENOrdering Facility: [facility] Address: [address] [place] [address] Performed By: #### 5 7021-8 ####[facility] LABCLIA [id number] [place] [address] [place] MCH (RBC) [Entitic mass] 29.5 pg Normal 26.0-34.0 [facility] Comment on above: Order Comment: Speci men Type: BLOOD SPECIMENOrdering Facility: [facility] Address: [address] [place] [address] Performed By: #### 5 7021-8 ####[facility] LABCLIA [id number] [place] [address] [place] MCHC (RBC) [Mass/Vol] 34.3 g/dL Normal 30.5-36.0 [facility] Comment on above: Order Comment: Speci men Type: BLOOD SPECIMENOrdering Facility: [facility] Address: [address] [place] [address] Performed By: #### 5 7021-8 ####[facility] LABCLIA [id number] [place] [address] [place] MCV (RBC) [Entitic vol] 86.2 fL Normal 80.0-100.0 [facility] Comment on above: Order Comment: Speci men Type: BLOOD SPECIMENOrdering Facility: [facility] Address: [address] [place] [address] Performed By: #### 5 7021-8 ####[facility] LABCLIA [id number] [place] [address] [place] Monocytes (Bld) [#/Vol] 0.44 10*3/uL Normal <0.87 [facility] Comment on above: Order Comment: Speci men Type: BLOOD SPECIMENOrdering Facility: [facility] Address: [address] [place] [address] Performed By: #### 5 7021-8 ####[facility] LABCLIA [id number] [place] [address] [place] Monocytes/100 WBC (Bld) 4.6 % Normal [facility] Comment on above: Order Comment: Speci men Type: BLOOD SPECIMENOrdering Facility: [facility] Address: [address] [place] [address] Performed By: #### 5 7021-8 ####[facility] LABCLIA [id number] [place] [address] [place] Neutrophils (Bld) [#/Vol] 7.15 10*3/uL Normal 1.45-7.50 [facility] Comment on above: Order Comment: Speci men Type: BLOOD SPECIMENOrdering Facility: [facility] Address: [address] [place] [address] Performed By: #### 5 7021-8 ####[facility] LABCLIA [id number] [place] [address] [place] Neutrophils/100 WBC (Bld) 75.5 % Normal [facility] Comment on above: Order Comment: Speci men Type: BLOOD SPECIMENOrdering Facility: [facility] Address: [address] [place] [address] Performed By: #### 5 7021-8 ####[facility] LABCLIA [id number] [place] [address] [place] Nucleated RBC (Bld) [#/Vol] 10*3/uL Normal <0.01 [facility] Comment on above: Order Comment: Speci men Type: BLOOD SPECIMENOrdering Facility: [facility] Address: [address] [place] [address] Performed By: #### 5 7021-8 ####[facility] LABCLIA [id number] [place] [address] [place] Nucleated RBC/100 WBC (Bld) [Ratio] 0.0 /100 WBC Normal [facility] Comment on above: Order Comment: Speci men Type: BLOOD SPECIMENOrdering Facility: [facility] Address: [address] [place] [address] Performed By: #### 5 7021-8 ####[facility] LABCLIA [id number] [place] [address] [place] Platelet mean volume (Bld) [Entitic vol] 11.3 fL Normal 9.0-12.7 [facility] Comment on above: Order Comment: Speci men Type: BLOOD SPECIMENOrdering Facility: [facility] Address: [address] [place] [address] Performed By: #### 5 7021-8 ####[facility] LABCLIA [id number] [place] [address] [place] Platelets (Bld) [#/Vol] 168 10*3/uL Normal 150-400 [facility] Comment on above: Order Comment: Speci men Type: BLOOD SPECIMENOrdering Facility: [facility] Address: [address] [place] [address] Performed By: #### 5 7021-8 ####[facility] LABCLIA [id number] [place] [address] [place] RBC (Bld) [#/Vol] 4.64 10*6/uL Normal 3.90-5.20 [facility] Comment on above: Order Comment: Speci men Type: BLOOD SPECIMENOrdering Facility: [facility] Address: [address] [place] [address] Performed By: #### 5 7021-8 ####[facility] LABIA [id number] [place] [id number] [place] WBC (Bld) [#/Vol] 9.48 10*3/uL Normal 3.70-11.00 [facility] Comment on above: Order Comment: Speci men Type: BLOOD SPECIMENOrdering Facility: [facility] Address: [address] [place] [address] Performed By: #### 5 7021-8 ####[facility] LABCLIA [id number] [place] [address] [place] nuchal translucency me asured by Tami 09-04-2024 Indication First trimester anatomic survey Impression REMOTE READ The patient is referred for a first trimester anatomy scan including nuchal translucency measurement as clinically indicated. - Single, live, intrauterine . - Elderon rump length measurement is consistent with the established gestational age. - No malformations visualized on incomplete first trimester anatomic assessment. - The nuchal translucency measurement is 1.8 mm. - Not all structural malformations can be detected by ultrasound examination. Maternal Structures: Right Ovary: Size 33 mm x 24 mm x 22 mm Left Ovary: Size 40 mm x 31 mm x 20 mm Recommendations Return for anatomy ultrasound Maternal Assessment Height 175 cm Height (ft) 5 ft Height (in) 9 in Physical Exam Initial weight (lb) 175 lb Initial BMI 25.84 kg/m Maternal assessment other: 1 Para 0 Method Transabdominal and transvaginal ultrasound examination. View: Suboptimal view: limited by position Finn . Number of fetuses: 1 Dating LMP on: 06/08/2024 GA by LMP 12 w + 4 d MARTI by LMP: 03/15/2025 GA by prior assessment 12 w + 4 d MARTI by prior assessment: 03/15/2025 Ultrasound examination on: 09/04/2024 GA by U/S based upon: CRL GA by U/S 13 w + 1 d MARTI by U/S: 03/11/2025 Assigned: based on stated MARTI, selected on 09/04/2024 Assigned GA 12 w + 4 d Assigned MARTI: 03/15/2025 General Evaluation Cardiac activity present Placenta: anterior Cord vessels: 3 vessel cord Amniotic fluid: normal amount Biometry Standard FHR 162 bpm CRL 69.4 mm 13w 1d 83% Hadlock NT 1.80 mm First Trimester Anatomy Calvarium: normal Falx cerebri: normal Choroid plexus: normal Profile: suboptimal Nasal bone: normal Retronasal triangle: normal Maxilla: normal Mandible: normal Nuchal translucency: Unremarkable Situs: normal Cardiac position: normal Cardiac axis: normal 4-chamber view: normal 4-chamber view with color: normal 7-[id number]-epuojmg view: suboptimal Abdominal cord insertion: normal Stomach: normal Kidneys: normal Bladder: normal Color doppler of perivesical umbilical arteries: normal Vertebral alignment: normal Arms: normal Hands: normal Legs: normal Feet: normal Maternal Structures Uterus / Cervix Uterus: Visualized Uterus length 124 mm Uterus width 106 mm Uterus height 83 mm Uterus Vol 573.1 cm Ovaries / Tubes / Adnexa Rt ovary: Visualized Rt ovary D1 33 mm Rt ovary D2 24 mm Rt ovary D3 22 mm Rt ovary Vol 9.1 cm Lt ovary: Visualized Lt ovary D1 40 mm Lt ovary D2 31 mm Lt ovary D3 20 mm Lt ovary Vol 12.9 cm Performed By: Poonam Harrington, GIANLUCA, RVT Read By: Renteta Flowers M.D. MATERNAL MEDICINE [facility] Radiology Study observation (narrative) [facility] HBV surface Ag Ser Qlon 08-09 HBV surface Ag Ql (S) Negative Normal Negative [facility] Comment on above: Order Comment: Speci men Type: BLOOD SPECIMENOrdering Facility: [facility] Address: [address] [place] [address] Performed By: #### 5 195-3, 62774-9, 71105-5 ####[facility] LABCLIA [id number] [place] [address] [place] HCV Ab Ser Qlon 09-04-2024 HCV Ab Ql (S) Negative Normal Negative [facility] Comment on above: Order Comment: Speci men Type: BLOOD SPECIMEN [facility] Address: [address] [place] [address] Result Comment: The result suggests no evidence of active infection with Hepatitis C virus. Should recent infection be suspected, repeat testing may be considered 4-6 weeks after this draw. Performed By: #### T SPN #### [facility] CLIA [id number] [address] [place] [address] [place] HGB ELECTROPHORESIS FOR EVAL (LAB ORDER)on 09-04-2024 Hemoglobin A (Bld) [Mass fraction] 97.1 % Normal 96.2-98.0 [facility] Comment on above: Order Comment: Speci men Type: BLOOD SPECIMEN [facility] Address: [address] [place] [address] Performed By: #### T SPN #### [facility] CLIA [id number] [address] [place] [address] [place] Hemoglobin A2 (Bld) [Mass fraction] 2.9 % Normal 2.0-3.1 [facility] Comment on above: Order Comment: Speci men Type: BLOOD SPECIMEN [facility] Address: [address] [place] [address] Performed By: #### T SPN #### [facility] CLIA [id number] [address] [place] [address] [place] Hemoglobin Unsp Elph (Bld) [Mass fraction] No abnormal hemoglobin identified. Normal No abnormal hemoglobin identified. [facility] Comment on above: Order Comment: Speci men Type: BLOOD SPECIMEN [facility] Address: [address] [place] [address] Performed By: #### T SPN #### [facility] CLIA [id number] [address] [place] [address] [place] HGB EVALUATION CASCADE INTER Kelvin 09-04-2024 Hemoglobin pattern (Bld) [Interp] Reviewed by Florencio Mccollum MD Normal [facility] Comment on above: Order Comment: Speci men Type: BLOOD SPECIMEN [facility] Address: [address] [place] [address] Performed By: #### T SPN #### [facility] CLIA [id number] [address] [place] [address] [place] INTERPRETATION (HGB EVAL) Normal [facility] Comment on above: Order Comment: Speci men Type: BLOOD SPECIMEN [facility] Address: [address] [place] [address] Result Comment: Hemo globins were analyzed by capillary electrophoresis and CBC red cell parameters were reviewed. No abnormal hemoglobin is identified. There is a normal hemoglobin capillary electrophoresis pattern. Performed By: #### T SPN #### [facility] CLIA [id number] [address] [place] [address] [place] HIV 1+2 Ab IA Qlon 5 HIV 1 and 2 Ab IA.rapid Nom (S/P/Bld) Normal [facility] Comment on above: Order Comment: Speci men Type: BLOOD SPECIMENOrdering Facility: [facility] Address: [address] [place] [address] Result Comment: Test not indicated. Performed By: #### 5 195-3, 97043-0, 09010-4 ####[facility] LABCLIA [id number] [place] [address] [place] HIV 1+2 Ab+HIV1 p24 Ag IA Ql Non-Reactive Normal Nonreactive [facility] Comment on above: Order Comment: Speci men Type: BLOOD SPECIMENOrdering Facility: [facility] Address: [address] [place] [address] Performed By: #### 5 195-3, 88889-4, 31780-5 ####[facility] LABCLIA [id number] [place] [address] [place] HIV immunoassay testing algorithm interpretation (S/P/Bld) [Interp] Normal [facility] Comment on above: Order Comment: Speci men Type: BLOOD SPECIMENOrdering Facility: [facility] Address: [address] [place] [address] Result Comment: No e vidence of HIV-1 or HIV-2 infection. Should recent infection be suspected, repeat testing may be considered 2-3 weeks after this draw. [place] Rev. Code 3701.243(E): This information has been disclosed to you from confidential records protected from disclosure by state law. ???You shall make no further disclosure of this information without the specific, written, and informed release of the individual to whom it pertains or as otherwise permitted by state law. A general authorization for the release of medical or other information is not sufficient for the purpose of the release of HIV test results or diagnoses. Performed By: #### 5 195-3, 22249-8, 96620-1 ####[facility] LABCLIA [id number] [place] [id number] [place] HbA1c (Bld)on 09-04-2024 Average glucose Estimated from glycated hemoglobin (Bld) [Mass/Vol] 88 mg/dL Normal [facility] Comment on above: Order Comment: Roldan morgan Type: BLOOD SPECIMENOrdering Facility: [facility] Address: [address] [place] [address] Result Comment: eAG: (Estimated average glucose) is a calculated value from HgbA1c and is loss prevention representative of the average blood glucose level in the last 2-3 month period. Performed By: #### 5 5454-3 ####[facility] LABCLIA [id number] [place] [address] [place] HbA1c (Bld) [Mass fraction] 4.7 % Normal 4.3-5.6 [facility] Comment on above: Order Comment: Roldan morgan Type: BLOOD SPECIMENOrdering Facility: [facility] Address: [address] [place] [address] Result Comment: Amer [place] Diabetes Association guidelines indicate that patients with HgbA1c in the range 5.7-6.4% are at increased risk for development of diabetes, and intervention by lifestyle modification may be beneficial. HgbA1c greater or equal to 6.5% is considered diagnostic of diabetes. Performed By: #### 5 5454-3 ####[facility] LABCLIA [id number] [address] [place] RBC PARAMETERS FOR HB IDon 0 09-04-2024 Erythrocyte distribution width (RBC) [Ratio] 13.0 % Normal 11.5-15.0 [facility] Comment on above: Order Comment: Roldan morgan Type: BLOOD SPECIMENOrdering Facility: [facility] Address: [address] [place] [address] Performed By: #### L [id number] ####[facility] LABIA [id number] [address] [place] Hematocrit (Bld) [Volume fraction] 39.6 % Normal 36.0-46.0 [facility] Comment on above: Order Comment: Roldan morgan Type: BLOOD SPECIMENOrdering Facility: [facility] Address: [address] [place] [address] Performed By: #### L [id number] ####[facility] LABIA [id number] [place] [address] [place] [facility] MCH (RBC) [Entitic mass] 29.7 pg Normal 26.0-34.0 [facility] Comment on above: Order Comment: Speci men Type: BLOOD SPECIMENOrdering Facility: [facility] Address: [address] [place] [address] Performed By: #### L [id number] ####[facility] LABIA [id number] [place] [address] [place] MCHC (RBC) [Mass/Vol] 34.6 g/dL Normal 30.5-36.0 [facility] Comment on above: Order Comment: Speci men Type: BLOOD SPECIMENOrdering Facility: [facility] Address: [address] [place] [address] Performed By: #### L [id number] ####[facility] LABIA [id number] [place] [address] [place] MCV (RBC) [Entitic vol] 85.9 fL Normal 80.0-100.0 [facility] Comment on above: Order Comment: Speci men Type: BLOOD SPECIMENOrdering Facility: [facility] Address: [address] [place] [address] Performed By: #### L [id number] ####[facility] LABIA [id number] [place] [address] [place] RBC (Bld) [#/Vol] 4.61 10*6/uL Normal 3.90-5.20 [facility] Comment on above: Order Comment: Speci men Type: BLOOD SPECIMENOrdering Facility: [facility] Address: [address] [place] [address] Performed By: #### L [id number] ####[facility] LABCLIA [id number] [place] [address] [place] RUBELLA IGG ANTIBODYon 09-04 RUBELLA IGG AB, QUAL Positive Normal Positive [facility] Comment on above: Order Comment: Speci men Type: BLOOD SPECIMEN [facility] Address: [address] [place] [address] Result Comment: The result suggests recent or past exposure to Rubella virus or history of Rubella vaccination. Positive result may also be seen due to presence of passively-transferred antibodies. Please correlate with patient's history. Performed By: #### T SPN #### [facility] CLIA [id number] [address] [place] [address] [place] Reagin and Treponema pallidu m IgG and IgM [Interp]on 09-04-2024 T. pallidum IgG+IgM IA Ql (S) Non-Reactive Normal Nonreactive [facility] Comment on above: Order Comment: Speci men Type: BLOOD SPECIMENOrdering Facility: [facility] Address: [address] [place] [address] Performed By: #### 5 195-3, 97433-8, 66009-1 ####[facility] LABCLIA [id number] [place] [address] [place] Reagin+T pallidum IgG+IgM Se rPl-Impon 09-04-2024 Reagin and Treponema pallidum IgG and IgM [Interp] Cannot exclude recent Treponemal infection if specimen collected within 7-10 days after appearance of suspect lesions or 2-3 weeks after an exposure. Clinical correlation is required. Normal [facility] Comment on above: Order Comment: Speci men Type: BLOOD SPECIMENOrdering Facility: [facility] Address: [address] [place] [address] Performed By: #### 5 195-3, 56608-5, 90730-8 ####[facility] LABCLIA [id number] [place] [address] [place] TYPE + SCREEN PRENATALon ABO O Normal [facility] Comment on above: Order Comment: Speci men Type: BLOOD SPECIMEN [facility] Address: [address] [place] [address] Performed By: #### T SPN #### [facility] CLIA [id number] [address] [place] [address] [place] Rh Nom (Bld) Positive Normal [facility] Comment on above: Order Comment: Speci men Type: BLOOD SPECIMEN [facility] Address: [address] [place] [address] Performed By: #### T SPN #### [facility] CLIA [id number] [address] [place] [address] [place] TYPE AND SCREEN EXPIRATION 09/07/2024 23:59 Normal [facility] Comment on above: Order Comment: Speci men Type: BLOOD SPECIMEN [facility] Address: [address] [place] [address] Performed By: #### T SPN #### [facility] CLIA [id number] [address] [place] [address] [place] Bacteria Ur Culton 4 Bacteria identified Cx Nom (U) ORGANISM ID: 1 <10,000 CFU/ml Normal urogenital ro Normal [facility] Comment on above: Performed By: #### T SPN #### [facility] CLIA [id number] [address] [place] [address] [place] C. trachomatis+N. gonorrhoea e DNA BRIAN+probe Ql (Unsp spec)on 08-07-2024 C. trachomatis rRNA BRIAN+probe Ql (Unsp spec) Not detected Normal Not detected [facility] Comment on above: Order Comment: Speci men Type: BLOOD SPECIMEN [facility] Address: [address] [place] [address] Performed By: #### T SPN #### [facility] CLIA [id number] [address] [place] [address] [place] N. gonorrhoeae rRNA BRIAN+probe Ql (Unsp spec) Not detected Normal Not detected [facility] Comment on above: Order Comment: Speci men Type: BLOOD SPECIMEN [facility] Address: [address] [place] [address] Performed By: #### T SPN #### [facility] CLIA [id number] [address] [place] [address] [place] PAP TESTon 08-07-2024 ADEQUACY Satisfactory for interpretation. Normal [facility] Comment on above: Order Comment: Speci men Type: FLUID SPECIMEN [facility] Address: [address] [place] [address] Performed By: #### L [id number] #### [facility] CLIA [id number] [address] [place] [address] [place] CASE REPORT Normal [facility] Comment on above: Order Comment: Speci men Type: FLUID SPECIMEN [facility] Address: [address] [place] [address] Result Comment: Gyne cologic Cytology Report Case: [id number] Authorizing Provider: Regina Sales APRN.CNM Collected: 08/07/2024 12:12 PM Ordering Location: OB/Gynecology Received: 08/07/2024 01:27 PM First Screen: Vladislav, Kimberly, CT, ASCP Specimen: Pap Test, ThinPrep, Cervix Performed By: #### L [id number] #### [facility] CLIA [id number] [address] [place] [address] [place] CLINICAL HISTORY, CYTOLOGY, NEGATIVE TURNER Routine Exam Normal [facility] Comment on above: Order Comment: Speci men Type: FLUID SPECIMEN [facility] Address: [address] [place] [address] Performed By: #### L [id number] #### [facility] CLIA [id number] [address] [place] [address] [place] FINAL PERFORMING LAB Normal [facility] Comment on above: Order Comment: Speci men Type: FLUID SPECIMEN [facility] Address: [address] [place] [address] Result Comment: Tech nical component, application support screening performed at [facility], [address] [place] [address] CLIA# [id number] Diagnostic interpretation performed at [facility], [address] [place], [place] [id number] CLIA# [id number] Aircraft Part Assembler: Celestine Ram M.D. Performed By: #### L [id number] #### [facility] CLIA [id number] [address] [place] [address] [place] INTERPRETATION, CYTOLOGY, NEGATIVE TURNER Normal [facility] Comment on above: Order Comment: Speci men Type: FLUID SPECIMEN [facility] Address: [address] [place] [address] Result Comment: Nega tive for intraepithelial lesion or malignancy. Performed By: #### L [id number] #### [facility] CLIA [id number] [address] [place] [address] [place] LMP 06/08/2024 Normal [facility] Comment on above: Order Comment: Speci men Type: FLUID SPECIMEN [facility] Address: [address] [place] [address] Performed By: #### L [id number] #### [facility] CLIA [id number] [address] [place] [address] [place] PAP DISCLAIMER COMMENT The Pap Smear is a screening test for cervical cancer. False negative results occur with all screening tests, emphasizing the need for rescreening at recommended intervals, and clinical correlation. Normal [facility] Comment on above: Order Comment: Speci men Type: FLUID SPECIMEN [facility] Address: [address] [place] [address] Performed By: #### L [id number] #### [facility] CLIA [id number] [address] [place] [address] [place] PAP NEGATIVE RETOUCHER COMMENT This specimen has be en analyzed by the ThinPrep Imaging System, an automated imaging and review system, which assists the laboratory in evaluating cells on ThinPrep Pap tests. Following automated imaging, selected grimes from every slide are reviewed by a application support. Normal [facility] Comment on above: Order Comment: Speci men Type: FLUID SPECIMEN [facility] Address: [address] [place] [address] Performed By: #### L [id number] #### [facility] CLIA [id number] [address] [place] [address] [place] POC FLORAL SPECIALIST ULTRASOUNDon 08-07-20 24 Indication Viability. Confirmation of intrauterine Impression Single intrauterine gestational sac, CRL is appropriate for clinical dates, corresponding to MARTI 03/15/2025 FHR 91 bpm Recommendations Follow up for NT scan if desired Method Transabdominal and transvaginal ultrasound examination Finn . Number of embryos: 1 Dating LMP on: 06/08/2024 GA by LMP 8 w + 4 d MARTI by LMP: 03/15/2025 Ultrasound examination on: 08/07/2024 GA by U/S based upon: CRL GA by U/S 8 w + 2 d MARTI by U/S: 03/17/2025 Assigned: based on the LMP, selected on 08/07/2024 Assigned GA 8 w + 4 d Assigned MARTI: 03/15/2025 Biometry Standard FHR 91 bpm CRL 17.8 mm 8w 2d 30% Hadlock Assessment Gestational sac: visualized Location: intrauterine Yolk sac: visualized Embryo: visualized CRL 17.8 mm 8w 2d 30% Hadlock Cardiac activity: present FHR 91 bpm General Evaluation Cardiac activity present. FHR 91 bpm Performed By: Regina Sales CNM Read By: Regina Sales CNM MATERNAL MEDICINE [facility] Radiology Study observation (narrative) [facility] CNOVon 06-07-2024 CNOV Office Visit ([facility] ) -- TIFFANIE MERCADO ([id number]) 1995 F Date Time Provider Department 06/07/24 3:00 PM LEAH PILLAI [facility] During your visit today, we recorded the following information about you: Temperature Pulse Respiration Blood pressure 98.1 degrees 71/minute 18/minute 126/78 Weight 82.5 kg Leah Pillai APRN.PROFESSOR OF COUNSELING 06/07/2024 3:25 PM Signed Subjective Cough Associated symptoms include headaches, myalgias and shortness of breath. Pertinent negatives include no chest pain, no chills, no ear pain, no sore throat and no wheezing. Tiffanie Mercado is a 28 year old female who presents with cough and chest congestion and shortness of breath for the past 2 weeks. She has felt feverish and has been having hot flashes at night. Cough is sometimes productive. Today she feels worse and has been having some back pain and nausea. She has been taking nyquil. 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 Review of Systems Constitutional: Positive for diaphoresis and malaise/fatigue. Negative for chills and fever. HENT: Negative for congestion, ear pain and sore throat. Respiratory: Positive for cough, sputum production and shortness of breath. Negative for hemoptysis and wheezing. Cardiovascular: Negative for chest pain. Gastrointestinal: Positive for nausea. Negative for abdominal pain and vomiting. Musculoskeletal: Positive for back pain and myalgias. Neurological: Positive for headaches. BP 126/78 Pulse 71 Temp 36.7 ?C (98.1 ?F) Resp 18 Wt 82.5 kg (181 lb 14.1 oz) LMP (LMP Unknown) SpO2 100% BMI 26.48 kg/m? PAST MEDICAL HISTORY Diagnosis Date Narcolepsy PMH - PAST MEDICAL HISTORY OF < 1 yr abscess drained from groin PAST SURGICAL HISTORY Procedure Laterality Date PAST SURGICAL HISTORY OF abscess of groin drained when an PAST SURGICAL HISTORY OF 01/27/2018 right ankle, hardware removed from fracture of 2015 REPAIR OF ANKLE FRACTURE Right 05/2015 ALLERGIES Amoxicillin, Bactrim [Sulfamethoxazole-Trimetho prim], Cats, Clindamycin, Dogs, Doxycycline, and Seasonal Allergies MEDICATIONS loratadine (CLARITIN) 10 mg tablet Take 1 tablet by mouth once daily as needed. FOR ALLERGY SYMPTOMS azithromycin (ZITHROMAX Z-LATOYA) 250 mg tablet Take 2 tablets day one, then, 1 tablet daily until gone. benzonatate (TESSALON PERLE) 100 mg capsule Take 2 capsules by mouth three times a day as needed for up to 10 days. amphetamine-dextroamphetam ine XR (ADDERALL XR) 15 mg 24 hr capsule Take by mouth. (Patient not taking: Reported on 06/07/2024) FAMILY HISTORY Problem Relation Age of Onset Diabetes Paternal Grandmother other (high cholesterol) Paternal Grandmother Hypertension Maternal Grandmother Hypertension Maternal Grandfather Diabetes Maternal Uncle type 1 Heart Maternal Uncle heart attack age 46 years Aneurysm Mother 45 AVMalformation other (brain tumor) Mother 44 Social History Tobacco Use Smoking status: Never Smokeless tobacco: Never Substance Use Topics Alcohol use: No Drug use: No Objective Physical Exam Vitals and nursing note reviewed. Constitutional: General: She is not in acute distress. Appearance: Normal appearance. She is not ill-appearing. HENT: Right Ear: Tympanic membrane, ear canal and external ear normal. Left Ear: Tympanic membrane, ear canal and external ear normal. Nose: Nose normal. No congestion or rhinorrhea. Mouth/Throat: Mouth: Mucous membranes are moist. Pharynx: Oropharynx is clear. Uvula midline. No oropharyngeal exudate or posterior oropharyngeal erythema. Cardiovascular: Rate and Rhythm: Normal rate and regular rhythm. Heart sounds: Normal heart sounds. Pulmonary: Effort: Pulmonary effort is normal. No respiratory distress. Breath sounds: Examination of the left-upper field reveals rales. Rales present. No wheezing. Musculoskeletal: Cervical back: Neck supple. Lymphadenopathy: Cervical: No cervical adenopathy. Skin: General: Skin is warm and dry. Findings: No erythema or rash. Neurological: Mental Status: She is alert. ASSESSMENT/PLAN: 1. Lower resp. tract infection - ICD9: 519.8, ICD10: J22 (primary diagnosis) - AZITHROMYCIN 250 MG TABLET 2. Acute cough - ICD9: 786.2, ICD10: R05.1 - BENZONATATE 100 MG CAPSULE - Follow-up with your PCP in 3-5 days if symptoms have not improved or sooner if symptoms worsen - Discussed red flags and need for immediate medical evaluation if any occur. - Discussed supportive care treatment with fluids, rest and analgesia. - Discussed expected course of illness ANDREAS Mcgarry Kathy, APRN.CNP 06/07/2024 3:20 PM Signed ASSESSMENT/PLAN: 1. Lower resp. tract infection - ICD9: 519.8, ICD10: J22 (primary diagnosis) - AZITHROMYCIN 250 MG TABLET 2. Acute cou (more content not included)... Normal [facility] STREP A MOLECULAR (POC)on Procedural Control Valid [facility] Strep A (POCT) Negative Negative [facility] COVID & INFLUENZA A/B & RSV NAAT, ROUTINEon 07-05-2023 FLUAV RNA BRIAN+probe Ql (Unsp spec) Not detected Not Detected [facility] FLUBV RNA BRIAN+probe Ql (Unsp spec) Not detected Not Detected [facility] RSV A RNA BRIAN+probe Ql (Unsp spec) Not detected Not Detected [facility] SARS-CoV-2 (COVID-19) RNA BRIAN+probe Ql (Resp) Not detected See comment [facility] STREP A MOLECULAR (POC)on Procedural Control Valid [facility] Strep A (POCT) Negative Negative [facility] CORONAVIRUS PCR [CCL]on 08-09 REF LAB REPORT Positive Normal [facility] Comment on above: Performed By: #### [id number] #### [facility],[address] [place] [address] SEND TO IC? YES Normal [facility] Comment on above: Performed By: #### [id number] #### [facility],[address] [place] [address] COVID 19 Result STITCH BURNISHER Positive Abnormal [facility] Comment on above: Result Comment: Posi tive for COVID19 (SARS CoV2) by PCR.(*) This test was developed and its performance characteristics determined by [facility]'s [facility] [place]. This test has been authorized by FDA under an Emergency Use Authorization (EUA). This test has been validated in accordance with the FDA's Guidance Document Policy for Diagnostics Testing in Laboratories Certified to Perform High Complexity Testing under CLIA prior to Emergency use Authorization for Coronavirus Disease 2019 during the Public Health Emergency issued on October 06, 2019. [facility] [address] [place] [address] Celestine Ram III, M.D. [id number] Performed By: #### 2 [id number] #### [place] [id number] COVID 19 Source STITCH BURNISHER Nasopharyngeal Swab Normal [facility] Comment on above: Result Comment: Flor ected on 09/04 AT 0154: Previously reported as STITCH BURNISHER Performed By: #### 2 [id number] #### [place] [id number] Coronavirus 2019on 1 COVID 19 Result STITCH BURNISHER Abnormal Negative for COVID19 (SARS CoV2) by PCR. [facility] Comment on above: Result Comment: Posi tive for This test was developed and its performance characteristics determined by [facility] [place]. This test has been authorized by FDA under an Emergency Use Authorization (EUA). This test has been validated in accordance with the FDA's Guidance Document Policy for Diagnostics Testing in Laboratories Certified to Perform High Complexity Testing under CLIA prior to Emergency use Authorization for Coronavirus Disease 2019 during the Public Health Emergency issued on October 06, 2019. COVID19 (SARS This test was developed and its performance characteristics determined by [facility]'s [facility] [place]. This test has been authorized by FDA under an Emergency Use Authorization (EUA). This test has been validated in accordance with the FDA's Guidance Document Policy for Diagnostics Testing in Laboratories Certified to Perform High Complexity Testing under CLIA prior to Emergency use Authorization for Coronavirus Disease 2019 during the Public Health Emergency issued on October 06, 2019. CoV2) by This test was developed and its performance characteristics determined by [facility]'s [facility] [place]. This test has been authorized by FDA under an Emergency Use Authorization (EUA). This test has been validated in accordance with the FDA's Guidance Document Policy for Diagnostics Testing in Laboratories Certified to Perform High Complexity Testing under CLIA prior to Emergency use Authorization for Coronavirus Disease 2019 during the Public Health Emergency issued on October 06, 2019. PCR.(*) This test was developed and its performance characteristics determined by [facility] [place]. This test has been authorized by FDA under an Emergency Use Authorization (EUA). This test has been validated in accordance with the FDA's Guidance Document Policy for Diagnostics Testing in Laboratories Certified to Perform High Complexity Testing under CLIA prior to Emergency use Authorization for Coronavirus Disease 2019 during the Public Health Emergency issued on October 06, 2019. COVID 19 Source STITCH BURNISHER Normal [facility] Comment on above: Result Comment: Naso pharyngeal Corrected on 09/04 AT 0154: Previously reported as STITCH BURNISHER Swab Corrected on 09/04 AT 0154: Previously reported as STITCH BURNISHER MISCELLANEOUS CULT./SM.BACT. on 09-24-2019 MISCELLANEOUS CULT./SM.BACT. PATIENT: TIFFANIE OLMEDO [place] [facility] [id number] : 89 AGE: SEX: F ORDERED BY: ANNE-MARIE ARMSTRONG SOURCE: MISC COLLECTED: 09/24/19 13:33 ANTIBIOTICS AT [facility].: RECEIVED : 09/24/19 23:45 SITE: R E S U L T S GRAM STAIN FINAL 09/25/19 00:14 NO GRANULOCYTES OR ORGANISMS SEEN. MISCELLANEOUS CULT./SM.BACT. FINAL 09/27/19 10:02 ISOLATE1 : Staphylococcus aureus RARE METHICILLIN(OXACILLIN)SUSC EPTIBLE STAPHYLOCOCCI ARE SUSCEPTIBLE TO SEMI-SYNTHETIC PENICILLINS (OXACILLIN,NAFCILLIN, ETC),BETA-LACTAM/BETA-LACT AMASE INHIBITOR COMBINATIONS(INCLUDING AMPICILLIN/SULBACTAM, AMOXICILLIN/CLAVULANATE AND PIPERACILLIN/TAZOBACTAM), CARBAPENEMS AND CEPHALOSPORINS APPROVED FOR USE BY THE FDA FOR STAPHYLOCOCCAL INFECTIONS. Organism S aureus Antibiotic BP INTRP Clindamycin S Ciprofloxacin S Erythromycin S Levofloxacin S Oxacillin S Trimeth/Sulfa S Tetracycline S Vancomycin S S=SUSCEPTIBLE I=INTERMEDIATE R=RESISTANT SDD=SUSCEPTIBLE DOSE DEPENDENT NS=NONSUSCEPTIBLE X=REPORTED IN ERROR Normal [facility] Comment on above: Performed By: #### M [facility] #### [facility] [address] [place] [address] Primary Care Visit (Text/For ms)on 09-24-2019 Primary Care Visit (Text/Forms) Diagnoses/Problems Assessed Folliculitis (704.8) (L73.9) Orders Folliculitis Start: Doxycycline Monohydrate 100 MG Oral Tablet; TAKE 1 TABLET TWICE DAILY Cult, Misc + smear; Status:Active; Requested for:[id number]; Start: Mupirocin 2 % External Ointment; APPLY A SMALL AMOUNT 3 TIMES DAILY DIRECTED for 7 days Patient Discussion/Summary Start doxycycline antibiotic for current infection in right axilla Topical mupirocin- apply to skin lesions up to 3 times daily as needed for up to 7 days as well Intranasal: Apply very small amount of ointment to each nostril twice daily (morning and evening) for 5 days for decolonization Send culture Warm water soaks Whole body Hibiclens skin rinse and cleanser If not improving or if develops additional infections, refer to dermatology Chief Complaint the last 6 months she has had 4 staff infections. Has a spot on left lower legs x 5 days One under her right arm pit x 1 week. Declines the flu shot today. Last tdap 09/01/2009 History of Present Illness She has had 4 staph infections since May- first on left ear, then stomach, left leg, and right axilla. 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) Impingement syndrome of left shoulder (726.2) (M75.42) Narcolepsy (347.00) (G47.419) Surgical History Problems History of Ankle surgery Family History Mother Family history of cerebral aneurysm (V17.1) (Z82.49) Family history of neoplasm of brain (V19.8) (Z84.89) Social History Problems Caffeine use (V49.89) (Z78.9) Never a smoker No alcohol use Non-smoker (V49.89) (Z78.9) Current Meds Medication NameInstruction Amphetamine-Dextroamphet ER 15 MG Oral Capsule Extended Release 24 Hour Cryselle-28 0.3-30 MG-MCG Oral Tablet Allergies Medication Bactrim TABS clindamycin Vitals Vital Signs Recorded: [id number] 12:56PM Temperature: 98.2 F Heart Rate: 91 Respiration: 12 Systolic: 92 Diastolic: 62 Height: 5 ft 9.75 in Weight: 165 lb 3 oz BMI Calculated: 23.87 BSA Calculated: 1.92 O2 Saturation: 100 LMP: [id number] Physical Exam Constitutional: Well developed, well nourished, alert and in no acute distress Eyes: Normal external exam. Skin: Warm, well perfused, normal skin turgor and color. Resolving dusky erythematous quarter-sized annular indurated area on left anterior holland, no drainage. Small erythematous pustule in right axilla with 1 cm area of induration openly draining, bloody fluid. Neurologic: Cranial nerves II-XII grossly intact. Psychiatric: Mood calm and affect normal. 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 plays basketball at school she has a lot of shoulder pain was ice skating and fell on shoulder 2 years ago this is LT shoulder pain she has trouble raising arm no weakness in hand has never had PT she has narcolepsy last sleep study was in 2015, this was done in [place] she goes to [employer] for sleep medicine doctor she is not sexually active had vaccines at [facility] has not had Gardasil vaccine pt will talk to mom about flu vaccine and Gardasil vaccine no dx scoliosis in the past no back pain 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 Active Problems Narcolepsy (347.00) (G47.419) Surgical History History of Ankle surgery Family History Mother Family history of cerebral aneurysm (V17.1) (Z82.49) Family history of neoplasm of brain (V19.8) (Z84.89) Social History Caffeine use (V49.89) (Z78.9) Never a smoker No alcohol use Non-smoker (V49.89) (Z78.9) Allergies No Known Drug Allergies Recorded By: Shaylee Hawthorne; 04/02/2019 10:07:57 AM Current Meds Amphetamine-Dextroamphet ER 15 MG Oral Capsule Extended Release 24 Hour; Therapy: [id number] to Recorded Dispense: 30 Days ; #:30; Refill: 0; SANDRA = N; Record; Last Updated By: Shaylee Hawthorne; 04/02/2019 10:03:19 AM Mitchell-28 0.3-30 MG-MCG Oral Tablet; Therapy: [id number] to Recorded Dispense: 56 Days ; #:56; Refill: 0; SANDRA = N; Record; Last Updated By: Shaylee Hawthorne; 04/02/2019 10:11:16 AM Vitals Vital Signs Recorded: 02Apr2019 10:09AM Nzexyfzccee57.1 F Heart Rate74 Lnikyfdemjg03 Tlsvfrqc84 Qeanfqjpk95 Height5 ft 10 in Chnxle711 lb 4 oz BMI Fyvqdtarji34.14 BSA Calculated1.9 O2 Ytmxzsphcm16 [id number] Physical Exam Gen: patient is alert and oriented x 3, pleasant, and in no apparent distress .Psychiatric: Patient has good eye contact. Mood and affect are appropriate.. HEENT: EOMI, pupils reactive and normal sized, mucous membranes moist and pink. Neck: No JVD or thyromegaly, no cervical lymphadenopathy Cardiovascular: heart regular rate and rhythm with no murmurs clicks or gallops Lungs: clear to auscultation without wheeze, rhonchi or rales. Abdomen: soft, nontender, no hepatosplenomegaly, nondistended with normal bowel sounds. Extremities: no clubbing, cyanosis or edema Musculoskeletal - duck walk, single-leg hop, toe walk, heel walk all normal. Strength 5 out of 5 x 4 extremities. Full range of motion wrists, elbows, shoulders, hips, knees, ankles. DTRs 2/4 . Shoulder height disparity, Left shoulder height slightly higher than right. mild curvature noted in spine. LT shoulder Pos Yebaoh. Neg Near. Pos Crossarm. tenderness with palpation at AC joint. No scapular winging. Good ROM in LT shoulder. 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 Tetanus is up to date until 2020. Gardasil vaccine series is recommended. This is a three series vaccine to protect against the virus that causes cervical cancer. For overall health, would recommend limitation of refined carbohydrates such as pasta, pretzels, crackers, breads, , sugar sweetened foods or beverages , pastries, cereals, or bagels. Recommend eating lots of vegetables, lean proteins, some fruits. Eat small amounts of healthy fat daily, such as a handful of almonds or walnuts, a serving of salmon, a generous splash of olive oil on your salad, an avocado. Recommend vitamin D 800 IU daily. Recommend some sort of exercise 5-6 times per week, 60 minutes those days. Eat the rainbow daily (veggies and fruit). Recommendation is visits with the dentist twice a year. Make sure to brush teeth twice daily, and floss once a day. Always wear a seatbelt when riding in cars, and tell the truck driver supervisor no texting and driving. Always wear sunscreen when you have sun exposure. Annual eye exams are recommended. Cervical cancer screening (pap smears) are recommended starting at age 21 and continuing through age 65. If negative, repeat intervals for testing are every 3 to 5 years, depending on age of the patient. 64 oz of water is recommended for consumption daily. Left Shoulder Pain-- You have a mild sign for impingement syndrome and AC arthropathy (pain where collar bone meets your shoulder) I recommend physical therapy. Order has been place, but you can follow with your driver trainer for shoulder pain first. Doing shoulder muscle strengthening exercises and continuing them lifelong can decrease your risk of re-injury, as well as help with acute symptoms. X-ray is not warranted at this time. Patient may use heat or cold, whichever provides greater relief. Would ice after play. Patient can use ibuprofen or Aleve as instructed on the bottle, unless unable to take (allergy, recent bleeding in stomach, decreased kidney function). Make sure you take those after food, risk of stomach upset, GI bleeding, etc. increased if taken on an empty stomach. Know that there is an extremely small but real risk of heart or stroke with use of these medicines, particularly if a person has cardiac risk factors such as high blood pressure, cholesterol, diabetes. Tylenol can safely be used at doses up to 500 mg 2 tabs 3 times daily, unless liver function is decreased. Recommend tiger balm zzsa-skk-gnicwyv as a topical soothing agent. Biofreeze or other menthol based products can also be tried. Please follow up in office for further evaluation if symptoms do not improve. Follow up in one year for annual physical exam. Follow up sooner in the meantime if needed. By signing my name below, I, Madiha Najera, attest that this documentation has been prepared under the direction and in the presence of Dr. Willis. All medical record entries made by the Danielaibbeverley were at my direction and personally dictated by me. I have reviewed the chart and agree that the record accurately reflects my personal performance of the history, physical exam, discussion and plan. (Dr. Willis ). Signatures Electronically signed by : MADIHA Najera; Apr 02 2019 10:34AM EST (Co-author) Electronically signed by : Yoli Willis DO; Apr 02 2019 10:39AM EST (Author) Normal [facility] Screeningon 2018 [facility] Screening 20/20 [facility] Work Phone: Vital Signs Date Time Vital Sign Value Performing Clinician Dayron desir 03-04-2025 14:27-0400 Body mass index (BMI) [Ratio] 31.31 kg/m2 Kacey Vo APRN.CNM Work Phone: [facility] 03-04-2025 14:27-0400 Body weight 97.52 kg Kacey Vo APRN.CNM Work Phone: [facility] 03-04-2025 14:27-0400 Diastolic blood pressure 70 mm[Hg] Kacey Plotts FIRE PATROL.CNM Work Phone: [facility] 03-04-2025 14:27-0400 Systolic blood pressure 108 mm[Hg] Kacey Plotts FIRE PATROL.CNM Work Phone: [facility] 03-01-2025 09:27-0400 Body mass index (BMI) [Ratio] 30.75 kg/m2 Kacey Plotts FIRE PATROL.CNM Work Phone: [facility] 03-01-2025 09:27-0400 Body weight 95.8 kg Kacey Plotts FIRE PATROL.CNM Work Phone: [facility] 03-01-2025 09:27-0400 Diastolic blood pressure 62 mm[Hg] Kacey Plotts FIRE PATROL.CNM Work Phone: [facility] 03-01-2025 09:27-0400 Systolic blood pressure 118 mm[Hg] Kacey Plotts FIRE PATROL.CNM Work Phone: [facility] 02-22-2025 13:11-0400 Body mass index (BMI) [Ratio] 30.49 kg/m2 Sarath Hale MD Work Phone: [facility] 02-22-2025 13:11-0400 Body weight 94.98 kg Sarath Hale MD Work Phone: [facility] 02-22-2025 13:11-0400 Diastolic blood pressure 70 mm[Hg] Sarath Hale MD Work Phone: [facility] 02-22-2025 13:11-0400 Systolic blood pressure 102 mm[Hg] Sarath Hale MD Work Phone: [facility] 02-13-2025 14:41-0400 Body mass index (BMI) [Ratio] 30.43 kg/m2 Kacey Plotts FIRE PATROL.CNM Work Phone: [facility] 02-13-2025 14:41-0400 Body weight 94.8 kg Kacey Plotts FIRE PATROL.CNM Work Phone: [facility] 02-13-2025 14:41-0400 Diastolic blood pressure 66 mm[Hg] Kacey Vo FIRE PATROL.CNM Work Phone: [facility] 02-13-2025 14:41-0400 Systolic blood pressure 108 mm[Hg] Kacey Vo FIRE PATROL.CNM Work Phone: [facility] 01-30-2025 08:00-0400 Body mass index (BMI) [Ratio] 29.7 kg/m2 Regina Henrry FIRE PATROL.CNM Work Phone: [facility] 01-30-2025 08:00-0400 Body weight 92.53 kg Regina Sales FIRE PATROL.CNM Work Phone: [facility] 01-30-2025 08:00-0400 Diastolic blood pressure 64 mm[Hg] Regina Henrry FIRE PATROL.CNM Work Phone: [facility] 01-30-2025 08:00-0400 Systolic blood pressure 110 mm[Hg] Regina Henrry FIRE PATROL.CNM Work Phone: [facility] 01-10-2025 12:48-0400 Body mass index (BMI) [Ratio] 28.8 kg/m2 Amudha Pazhanisamy DO Work Phone: [facility] 01-10-2025 12:48-0400 Body weight 89.72 kg Amudha Pazhanisamy DO Work Phone: [facility] 01-10-2025 12:48-0400 Diastolic blood pressure 68 mm[Hg] Amudha Pazhanisamy DO Work Phone: [facility] 01-10-2025 12:48-0400 Heart rate 79 /min Amudha Pazhanisamy DO Work Phone: [facility] 01-10-2025 12:48-0400 Respiratory rate 16 /min Amudha Pazhanisamy DO Work Phone: [facility] 01-10-2025 12:48-0400 SaO2% (BldA) [Mass fraction] 97 % Amudha Pazhanisamy DO Work Phone: [facility] 01-10-2025 12:48-0400 Systolic blood pressure 105 mm[Hg] Amudha Pazhanisamy DO Work Phone: [facility] 01-08-2025 13:06-0400 Body mass index (BMI) [Ratio] 28.98 kg/m2 Regina Sales FIRE PATROL.CNM Work Phone: [facility] 01-08-2025 13:06-0400 Body weight 90.27 kg Regina Sales APRN.CNM Work Phone: [facility] 01-08-2025 13:06-0400 Diastolic blood pressure 62 mm[Hg] Regina Sales APRN.CNM Work Phone: [facility] 01-08-2025 13:06-0400 Systolic blood pressure 110 mm[Hg] Regina Sales APRN.CNM Work Phone: [facility] 12-24-2024 16:31-0400 Body mass index (BMI) [Ratio] 29.41 kg/m2 Regina Sales FIRE PATROL.CNM Work Phone: [facility] 12-24-2024 16:31-0400 Body weight 91.63 kg Regina Sales APRN.CNM Work Phone: [facility] 12-24-2024 16:31-0400 Diastolic blood pressure 72 mm[Hg] Regina Sales FIRE PATROL.CNM Work Phone: [facility] 12-24-2024 16:31-0400 Systolic blood pressure 122 mm[Hg] Regina Sales APRN.CNM Work Phone: [facility] 11-26-2024 15:40-0400 Body mass index (BMI) [Ratio] 27.96 kg/m2 Meme Valero APRN.PROFESSOR OF COUNSELING Work Phone: [facility] 11-26-2024 15:40-0400 Body weight 87.09 kg Meme Valero FIRE PATROL.PROFESSOR OF COUNSELING Work Phone: [facility] 11-26-2024 15:40-0400 Diastolic blood pressure 72 mm[Hg] Meme Valero FIRE PATROL.PROFESSOR OF COUNSELING Work Phone: [facility] 11-26-2024 15:40-0400 Systolic blood pressure 106 mm[Hg] Meme Valero FIRE PATROL.PROFESSOR OF COUNSELING Work Phone: [facility] 10-29-2024 15:29-0400 Body mass index (BMI) [Ratio] 27.52 kg/m2 Mimi Gotti MD Work Phone: [facility] 10-29-2024 15:29-0400 Body weight 85.73 kg Mimi Gotti MD Work Phone: [facility] 10-29-2024 15:29-0400 Diastolic blood pressure 60 mm[Hg] Mimi Gotti MD Work Phone: [facility] 10-29-2024 15:29-0400 Systolic blood pressure 102 mm[Hg] Mimi Gotti MD Work Phone: [facility] 10-02-2024 15:48-0500 Body mass index (BMI) [Ratio] 27.08 kg/m2 Sarath Hale MD Work Phone: [facility] 10-02-2024 15:48-0500 Body weight 84.37 kg Sarath Hale MD Work Phone: [facility] 10-02-2024 15:48-0500 Diastolic blood pressure 68 mm[Hg] Sarath Hale MD Work Phone: [facility] 10-02-2024 15:48-0500 Systolic blood pressure 98 mm[Hg] Sarath Hale MD Work Phone: [facility] 09-05-2024 12:59-0500 Body height 175.3 cm Maria Del Carmen Pérez MD Work Phone: [facility] 09-05-2024 12:59-0500 Body mass index (BMI) [Ratio] 26.8 kg/m2 Maria Del Carmen Pérez MD Work Phone: [facility] 09-05-2024 12:59-0500 Body weight 82.33 kg Maria Del Carmen Pérez MD Work Phone: [facility] 09-05-2024 12:59-0500 Diastolic blood pressure 66 mm[Hg] Maria Del Carmen Pérez MD Work Phone: [facility] 09-05-2024 12:59-0500 Heart rate 84 /min Maria Del Carmen Pérez MD Work Phone: [facility] 09-05-2024 12:59-0500 SaO2% (BldA) [Mass fraction] 100 % Maria Del Carmen Pérez MD Work Phone: [facility] 09-05-2024 12:59-0500 Systolic blood pressure 108 mm[Hg] Maria Del Carmen Pérez MD Work Phone: [facility] 09-04-2024 15:54-0500 Body mass index (BMI) [Ratio] 26.79 kg/m2 Doris Ramirez MD Work Phone: [facility] 09-04-2024 15:54-0500 Body weight 83.46 kg Doris Ramirez MD Work Phone: [facility] 09-04-2024 15:54-0500 Diastolic blood pressure 80 mm[Hg] Doris Ramirez MD Work Phone: [facility] 09-04-2024 15:54-0500 Systolic blood pressure 112 mm[Hg] Doris Ramirez MD Work Phone: [facility] 08-07-2024 08:42-0500 Body mass index (BMI) [Ratio] 26.41 kg/m2 Regina Sales APRN.CNM Work Phone: [facility] 08-07-2024 08:42-0500 Body weight 82.28 kg Regina Sales APRN.CNM Work Phone: [facility] 08-07-2024 08:42-0500 Diastolic blood pressure 60 mm[Hg] Regina Sales FIRE PATROL.CNM Work Phone: [facility] 08-07-2024 08:42-0500 Systolic blood pressure 112 mm[Hg] Regina Sales FIRE PATROL.CNM Work Phone: [facility] 06-07-2024 15:02-0400 Body mass index (BMI) [Ratio] 26.48 kg/m2 Leah Praisler-Wood FIRE PATROL.PROFESSOR OF COUNSELING Work Phone: [facility] 06-07-2024 15:02-0400 Body temperature 98.1 [degF] Leah Praisler-Wood FIRE PATROL.PROFESSOR OF COUNSELING Work Phone: [facility] 06-07-2024 15:02-0400 Body weight 82.5 kg Leah Praisler-Wood FIRE PATROL.PROFESSOR OF COUNSELING Work Phone: [facility] 06-07-2024 15:02-0400 Diastolic blood pressure 78 mm[Hg] Leah Praisler-Wood FIRE PATROL.PROFESSOR OF COUNSELING Work Phone: [facility] 06-07-2024 15:02-0400 Heart rate 71 /min Leah Praisler-Wood FIRE PATROL.PROFESSOR OF COUNSELING Work Phone: [facility] 06-07-2024 15:02-0400 Respiratory rate 18 /min Leah Praisler-Wood FIRE PATROL.PROFESSOR OF COUNSELING Work Phone: [facility] 06-07-2024 15:02-0400 SaO2% (BldA) [Mass fraction] 100 % Leah Praisler-Wood FIRE PATROL.PROFESSOR OF COUNSELING Work Phone: [facility] 06-07-2024 15:02-0400 Systolic blood pressure 126 mm[Hg] Leah Praisler-Wood FIRE PATROL.PROFESSOR OF COUNSELING Work Phone: [facility] 07-06-2023 12:08-0500 Body temperature 99.1 [degF] Ciara Cochran PA Work Phone: [facility] 07-06-2023 12:08-0500 Body weight 80.47 kg Krislyn Aberegg PA Work Phone: [facility] 07-06-2023 12:08-0500 Diastolic blood pressure 62 mm[Hg] Krislyn Aberegg PA Work Phone: [facility] 07-06-2023 12:08-0500 Heart rate 105 /min Krislyn Aberegg PA Work Phone: [facility] 07-06-2023 12:08-0500 Respiratory rate 21 /min Krislyn Aberegg PA Work Phone: [facility] 07-06-2023 12:08-0500 SaO2% (BldA) [Mass fraction] 99 % Krislyn Aberegg PA Work Phone: [facility] 07-06-2023 12:08-0500 Systolic blood pressure 104 mm[Hg] Krislyn Aberegg PA Work Phone: [facility] 07-04-2023 15:10-0500 Body temperature 97.39 [degF] Angeline Athy PA-C Work Phone: [facility] 07-04-2023 15:10-0500 Body weight 80.56 kg Angeline Athy PA-C Work Phone: [facility] 07-04-2023 15:10-0500 Diastolic blood pressure 76 mm[Hg] Angeline Athy PA-C Work Phone: [facility] 07-04-2023 15:10-0500 Heart rate 70 /min Angeline Athy PA-C Work Phone: [facility] 07-04-2023 15:10-0500 Respiratory rate 18 /min Angeline Athy PA-C Work Phone: [facility] 07-04-2023 15:10-0500 SaO2% (BldA) [Mass fraction] 100 % Angeline Athy PA-C Work Phone: [facility] 07-04-2023 15:10-0500 Systolic blood pressure 131 mm[Hg] Angeline Haynes PA-C Work Phone: [facility] 11-04-2022 17:30-0400 Body temperature 98.2 [degF] Lázaro Soriano MD Work Phone: [facility] 11-04-2022 17:30-0400 Body weight 77.2 kg Lázaro Soriano MD Work Phone: [facility] 11-04-2022 17:30-0400 Diastolic blood pressure 82 mm[Hg] Lázaro Soriano MD Work Phone: [facility] 11-04-2022 17:30-0400 Heart rate 80 /min Lázaro Soriano MD Work Phone: [facility] 11-04-2022 17:30-0400 Respiratory rate 18 /min Lázaro Soriano MD Work Phone: [facility] 11-04-2022 17:30-0400 SaO2% (BldA) [Mass fraction] 99 % Lázaro Soriano MD Work Phone: [facility] 11-04-2022 17:30-0400 Systolic blood pressure 120 mm[Hg] Lázaro Soriano MD Work Phone: [facility] 09-08-2022 12:39-0500 Body height 177.8 cm Maria Del Carmen Pérez MD Work Phone: [facility] 09-08-2022 12:39-0500 Body mass index (BMI) [Ratio] 24.02 kg/m2 Maria Del Carmen Pérez MD Work Phone: [facility] 09-08-2022 12:39-0500 Body weight 75.93 kg Maria Del Carmen Pérez MD Work Phone: [facility] 09-08-2022 12:39-0500 Diastolic blood pressure 78 mm[Hg] Maria Del Carmen Pérez MD Work Phone: [facility] 09-08-2022 12:39-0500 Heart rate 74 /min Maria Del Carmen Pérez MD Work Phone: [facility] 09-08-2022 12:39-0500 SaO2% (BldA) [Mass fraction] 99 % Maria Del Carmen Pérez MD Work Phone: [facility] 09-08-2022 12:39-0500 Systolic blood pressure 114 mm[Hg] Maria Del Carmen Pérez MD Work Phone: [facility] 04-02-2019 12:09-0400 BMI (Body Mass Index) 23.14 kg/m2 Yoli Willis [facility] Work Phone: 04-02-2019 12:09-0400 Body Temperature 98.1 [degF] [facility] Work Phone: 04-02-2019 12:09-0400 Body weight 73.14 kg [facility] Work Phone: 04-02-2019 12:09-0400 BP Diastolic 63 mm[Hg] [facility] Work Phone: 04-02-2019 12:09-0400 BP Systolic 91 mm[Hg] Yoli Willis -Yoli [facility] Work Phone: 04-02-2019 12:09-0400 BSA (Body Surface Area) 1.9 m2 Yoli Willis [facility] Work Phone: 04-02-2019 12:09-0400 Height 177.8 cm [facility] Work Phone: 04-02-2019 12:09-0400 Pulse (Heart Rate) 74 /min [facility] Work Phone: 04-02-2019 12:09-0400 Pulse Oximetry 98 % [facility] Work Phone: 04-02-2019 12:09-0400 Respiratory Rate 12 /min Yoli Akins Work Phone: Encounters Encounter Date Encounter Type Care Provider Facility Start: 03-18-2025 End: 03-18-2025 ambulatory [facility] Facility:[facility] Start: 03-15-2025 ambulatory [facility] Facility: [facility] Start: 03-13-2025 End: 03-13-2025 ambulatory [facility] [place] Facility:[facility] Start: 03-04-2025 End: 03-04-2025 Patient encounter procedure Kacey Lorenzogillian FIRE PATROL.CNM Work Phone: OB/Gynecology Comment on above: Encounter for superv ision of normal first in third trimester (HCC) (Primary Dx); 38 weeks gestation of (HCC) Start: 03-04-2025 End: 03-04-2025 [facility] Start: 03-01-2025 End: 03-01-2025 Patient encounter procedure Kacey Lorenzots FIRE PATROL.CNM Work Phone: OB/Gynecology Comment on above: 38 weeks gestation o f (HCC) (Primary Dx); Encounter for supervision of normal first in third trimester (HCC) Start: 03-01-2025 End: 03-01-2025 ambulatory KACEY VO Facility:[facility] Start: 02-22-2025 End: 02-22-2025 Patient encounter procedure Sarath Hale MD Work Phone: OB/Gynecology Comment on above: 37 weeks gestation o f (HCC) (Primary Dx); Encounter for supervision of normal first in third trimester (HCC) Start: 02-22-2025 End: 02-22-2025 ambulatory SARATH HALE Facility:[facility] Start: 02-13-2025 End: 02-13-2025 Patient encounter procedure Kacey Lorenzogillian FIRE PATROL.CNM Work Phone: OB/Gynecology Comment on above: Encounter for superv ision of normal first in third trimester (HCC) (Primary Dx); 35 weeks gestation of (HCC); Penicillin allergy Start: 02-13-2025 End: 02-13-2025 ambulatory KACEY VO Facility:[facility] Start: 01-30-2025 End: 01-30-2025 Patient encounter procedure Regina Sales APRN.CNM Work Phone: OB/Gynecology Comment on above: Encounter for superv ision of normal first in third trimester (HCC) (Primary Dx); 33 weeks gestation of (HCC); Penicillin allergy Start: 01-30-2025 End: 01-30-2025 ambulatory REGINA SALES Facility:[facility] Start: 01-10-2025 End: 01-10-2025 Telephone encounter Doris Ramirez MD Work Phone: OB/Gynecology Comment on above: Syncope Start: 01-10-2025 End: 01-10-2025 Office consultation new/estab patient 60 min Amudha Pazhanisamy DO Work Phone: Allergy Comment on above: Adverse effect of pe nicillin, sequela (Primary Dx); Vasovagal syncope; with 30 completed weeks gestation (HCC) Start: 01-10-2025 End: 01-10-2025 ambulatory AMUDHA PAZHANISAMY Facility:[facility] Start: 01-08-2025 End: 01-08-2025 Patient encounter procedure Regina Sales APRN.CNM Work Phone: OB/Gynecology Comment on above: Encounter for superv ision of normal first in third trimester (HCC) (Primary Dx); 30 weeks gestation of ([facility]); Penicillin allergy Start: 01-08-2025 End: 01-08-2025 ambulatory REGINA SALES Facility:[facility] Start: 12-27-2024 End: 02-26-2025 Follow-up encounter Meme Valero APRN.CNP Work Phone: OB/Gynecology Start: 12-27-2024 End: 12-27-2024 ambulatory MEME VALERO Facility:[facility] Start: 12-24-2024 End: 12-24-2024 Patient encounter procedure Regina Sales APRN.CNM Work Phone: OB/Gynecology Comment on above: Encounter for superv ision of normal first in second trimester (HCC) (Primary Dx); 28 weeks gestation of (HCC) Start: 12-24-2024 End: 12-24-2024 ambulatory MEME VALERO Facility:[facility] Start: 11-27-2024 End: 01-27-2025 Follow-up encounter Mimi Gotti MD Work Phone: OB/Gynecology Start: 11-26-2024 End: 11-26-2024 Patient encounter procedure Meme Valero FIRE PATROL.PROFESSOR OF COUNSELING Work Phone: OB/Gynecology Comment on above: Encounter for superv ision of normal first in second trimester ([facility]) (Primary Dx); 24 weeks gestation of ([facility]); Screening for diabetes mellitus; Allergy to amoxicillin Encounter for follow -up ultrasound of anatomy ([facility]) (Primary Dx); 24 weeks gestation of ([facility]) Start: 11-26-2024 End: 11-26-2024 ambulatory MIMI GOTTI Facility:[facility] Start: 10-29-2024 End: 10-29-2024 Patient encounter procedure Mimi Gotti MD Work Phone: OB/Gynecology Comment on above: Encounter for prenat al care in second trimester of first (Primary Dx); 20 weeks gestation of ; Encounter for supervision of normal first in first trimester Encounter for anatomic survey (Primary Dx); 16 weeks gestation of Start: 10-29-2024 End: 10-29-2024 ambulatory SARATH HALE Facility:[facility] Start: 10-02-2024 End: 10-02-2024 ambulatory SARATH HALE Facility:[facility] Start: 10-02-2024 End: 10-02-2024 Patient encounter procedure Sarath Hale MD Work Phone: OB/Gynecology Comment on above: 16 weeks gestation o f (Primary Dx); Encounter for care in second trimester of first Start: 09-05-2024 End: 09-05-2024 Office outpatient visit 15 minutes Maria Del Carmen éPrez MD Work Phone: [facility] Comment on above: Narcolepsy with gideon plexy (Primary Dx) Start: 09-05-2024 ambulatory YAHAIRA WATTS Facility :[facility] Start: 09-04-2024 End: 09-04-2024 ambulatory REGINA SALES Facility:[facility] Start: 09-04-2024 End: 09-04-2024 Patient encounter procedure [employer] Super[employer] [facility] Comment on above: Encounter for antena benjie screening for malformation using ultrasound (Primary Dx); 12 weeks gestation of 12 weeks gestation o f (Primary Dx); Encounter for care in second trimester of first Start: 09-04-2024 End: 09-04-2024 [facility] Start: 08-07-2024 End: 08-07-2024 [facility] Facility:[facility] Start: 08-07-2024 End: 08-07-2024 Patient encounter procedure Regina Henrry STOVALL Work Phone: OB/Gynecology Comment on above: 8 weeks gestation of (Primary Dx); Encounter for care in first trimester of first ; Screening for cervical cancer; Encounter for supervision of normal first in first trimester; Primary narcolepsy with cataplexy Start: 06-07-2024 End: 06-07-2024 [facility] Facility:[facility] Start: 06-07-2024 End: 06-07-2024 Patient encounter procedure Leah Pillai APRN.CNP Work Phone: [facility] Comment on above: Lower resp. tract in fection (Primary Dx); Acute cough Start: 10-31-2023 ambulatory MARIA DEL CARMEN PÉREZ Facility:[facility] Start: 07-06-2023 End: 07-06-2023 Patient encounter procedure Ciara HAJI Work Phone: [facility] Comment on above: Acute otitis media, left (Primary Dx); Sore throat Start: 07-05-2023 Telephone encounter Konrad oconnor APRN.MARIBEL Work Phone: [facility] Comment on above: Results Start: 07-04-2023 End: 07-04-2023 Patient encounter procedure Angeline Haynes PA-C Work Phone: [facility] Comment on above: Viral URI (Primary D x) Start: 01-05-2023 Telephone encounter Eileen garland [facility] Comment on above: Order Request Start: 11-04-2022 End: 11-04-2022 Patient encounter procedure Lázaro Soriano MD Work Phone: [facility] Comment on above: Pityriasis rosea (Pr imary Dx) Start: 09-08-2022 End: 09-08-2022 Office outpatient visit 25 minutes Maria Del Carmen Pérez MD Work Phone: [facility] Comment on above: Narcolepsy with gideon plexy (Primary Dx); Primary narcolepsy with cataplexy; Sleep dysfunction with arousal disturbance Start: 09-02-2020 End: 09-02-2020 Patient encounter procedure [facility] Beverley [facility] Start: 09-24-2019 Patient encounter procedure Brenton Boggs [facility] Work Phone: Start: 04-02-2019 Patient encounter procedure Brenton Boggs [facility] Work Phone: Procedures Date Procedure Procedure Detail Performing Clinician Start: 03-04-2025 Urnls dip stick/tabl et rgnt non-auto w/o micrscp Kacey Plotts FIRE PATROL.CNM Work Phone: Start: 03-01-2025 Urnls dip stick/tabl et rgnt non-auto w/o micrscp Kacey Plotts FIRE PATROL.CNM Work Phone: Start: 02-22-2025 Urnls dip stick/tabl et rgnt non-auto w/o micrscp Sarath Hale MD Work Phone: Start: 02-13-2025 Urnls dip stick/tabl et rgnt non-auto w/o micrscp Kacey Plotts FIRE PATROL.CNM Work Phone: Start: 11-26-2024 Us preg uterus after 1st trimest 08/08 gestation Mimi Gotti MD Work Phone: Start: 10-29-2024 Us preg uterus after 1st trimest / gestation Sarath Hale MD Work Phone: Start: 09-04-2024 Antibody screen REGINA HENRRY Comment on above: Order Comment: Speci men Type: BLOOD SPECIMEN Ordering Facility: [facility] Address: [address] [place] [address] Performed By: #### T SPN #### [facility] CLIA [id number] [address] [place] [address] [place] [address] [place] Start: 09-04-2024 Us nuchal translucency 1st gestation Regina Sales APRN.CNM Work Phone: Start: 08-07-2024 uterus l imited / fetuses Regina Sales APRN.CNM Work Phone: Start: 07-06-2023 STREP A MOLECULAR (POC) Ciara HAJI Work Phone: Start: 07-04-2023 COVID & INFLUENZA A/ B & RSV NAAT, ROUTINE Angeline Haynes PA-C Work Phone: Start: 07-04-2023 STREP A MOLECULAR (POC) Leah Pillai APRN.CNP Work Phone: Start: 01-11-2020 Follow-up visit Start: 04-02-2019 Urnls dip stick/tabl et rgnt auto w/o microscopy Yoli Willis Operative procedure on ankle Y[facility] Willis Plan of Treatment Date Care Activity Detail Author Start: 2057 RSV VACCINE (1 - 1-d ose 60+ series) RSV VACCINE (1 - 1-dose 60+ series) [facility] Start: 01-15-2034 Tetanus vaccination TETANUS [facility] Start: 08-07-2027 Screening for malign ant neoplasm of cervix Cervical Cancer Screening [facility] Start: 10-29-2025 Covid-19 Vaccine ( season) Covid-19 Vaccine ( season) [facility] Comment on above: Postponed from 04/08 (Declined at this time) Start: 05-15-2025 End: 05-15-2025 Patient encounter procedure 05/15/2025 1:00 PM EDT Office Visit [facility] [address] [address] Maria Del Carmen Pérez MD [address] [place] [id number] [facility] Start: 04-08-2025 Influenza vaccination [facility] Start: 03-18-2025 End: 03-18-2025 Patient encounter procedure 03/18/2025 8:00 AM EDT Routine Office Visit OB/Gynecology [address] [place] [address] Regina Sales APRN.CNM [address] [place] [address] OB OB/Gynecology Comment on above: OB Start: 03-13-2025 End: 03-13-2025 Patient encounter procedure 03/13/2025 10:00 AM EDT Routine Office Visit OB/Gynecology [address] [place] [address] Doris Ramirez MD [address] [place] [address] OB OB/Gynecology Comment on above: OB Start: 03-04-2025 End: 03-04-2025 Patient encounter procedure 03/04/2025 2:30 PM EDT Routine Office Visit OB/Gynecology [address] [place] [address] Kacey Vo APRN.CNM [address] [place] [address] OB OB/Gynecology Comment on above: OB Start: 03-01-2025 End: 03-01-2025 Patient encounter procedure 03/01/2025 9:30 AM EDT Routine Office Visit OB/Gynecology [address] [place] [address] Kacey Vo APRN.CNM [address] [place] [address] OB OB/Gynecology Comment on above: OB Start: 02-22-2025 End: 02-22-2025 Patient encounter procedure 02/22/2025 1:10 PM EDT Routine Office Visit OB/Gynecology [address] [place] [address] Sarath Hale MD [address] [place] [address] OB OB/Gynecology Comment on above: OB Start: 02-13-2025 End: 02-13-2025 Patient encounter procedure 02/13/2025 2:30 PM EDT Routine Office Visit OB/Gynecology [address] [place] [address] Kacey Vo APRN.CNM [address] [place] [address] OB OB/Gynecology Comment on above: OB Start: 02-04-2025 Influenza vaccination Influenza Vacc ine (#1) [facility] Comment on above: Postponed from 04/08 (Declined at this time) Start: 01-30-2025 End: 01-30-2025 Patient encounter procedure 01/30/2025 8:00 AM EDT Routine Office Visit OB/Gynecology [address] [place] [address] Regina Sales APRN.CNCayetano [address] [place] [address] 2 wk follow up OB/Gynecology Comment on above: 2 wk follow up Start: 01-14-2025 End: 01-14-2025 Patient encounter procedure 01/14/2025 10:00 AM EDT Office Visit Allergy [address] [place] [address] Reina Hui APRN.ANALYTICAL CHEMIST [address] [place] [address] Allergy to amoxicillin [Z88.0] Allergy Comment on above: Allergy to amoxicill in [Z88.0] Start: 01-10-2025 End: 01-10-2025 Patient encounter procedure 01/10/2025 1:00 PM EDT Office Visit Allergy [address] [facility] [address] [place] [address] Gilbert Tao DO [address] [place] [address] ?NONE/Allergy to amoxicillin [Z88.0] Allergy Comment on above: ?NONE/Allergy to dain xicillin [Z88.0] Start: 01-08-2025 End: 01-08-2025 Patient encounter procedure 01/08/2025 1:15 PM EDT Routine Office Visit OB/Gynecology [address] [place] [address] Regina Sales APRN.CNM [address] [place] [address] OB OB/Gynecology Comment on above: OB Start: 12-27-2024 End: 12-27-2024 ambulatory 12/27/2024 7:00 AM EDT Results Only [facility] [address] [place] [address] Glucose [facility] Comment on above: Glucose Start: 12-26-2024 End: 03-27-2025 ANEMIA REFLEX PANEL ANEMIA REFLEX PANEL Lab Routine 24 weeks gestation of (HCC) Expected: 12/26/2024 (Approximate), Expires: 03/27/2025 [facility] Comment on above: Expected: 12/26/2024 (Approximate), Expires: 03/27/2025 Start: 12-26-2024 End: 11-26-2025 GESTATIONAL GLUCOSE SCREEN, 1-HOUR, 50 GRAM, NON-FASTING GESTATIONAL GLUCOSE SCREEN, 1-HOUR, 50 GRAM, NON-FASTING Lab Routine Screening for diabetes mellitus Expected: 12/26/2024 (Approximate), Expires: 11/26/2025 [facility] Work Phone: Comment on above: Expected: 12/26/2024 (Approximate), Expires: 11/26/2025 Start: 12-26-2024 End: 11-26-2025 SYPHILIS TREPONEMAL W/REFLEX SYPHILIS TREPONEMAL W/REFLEX Lab Routine 24 weeks gestation of (HCC) Expected: 12/26/2024 (Approximate), Expires: 11/26/2025 [facility] Comment on above: Expected: 12/26/2024 (Approximate), Expires: 11/26/2025 Start: 12-24-2024 End: 12-24-2024 Patient encounter procedure 12/24/2024 4:30 PM EDT Routine Office Visit OB/Gynecology [address] [place] [address] Regina Sales APRN.CN [address] [place] [address] OB Routine OB/Gynecology Comment on above: OB Routine Start: 12-24-2024 End: 12-24-2024 ambulatory 12/24/2024 4:15 PM EDT Results Only [facility] [address] [place] [address] Glucose test and Labs [facility] Comment on above: Glucose test and Lab s Start: 11-26-2024 End: 11-26-2024 Patient encounter procedure [facility] Comment on above: US US / OB Start: 10-29-2024 End: 10-29-2024 Patient encounter procedure [facility] Comment on above: Anatomy Anatomy @3/ OB Start: 10-29-2024 End: 10-29-2025 OBSTETRIC ULTRASOUND WHI OBSTETRIC ULTRASOUND WHI Anc Imaging Routine Encounter for care in second trimester of first 20 weeks gestation of Expected: 10/29/2024, Expires: 10/29/2025 [facility] Work Phone: Comment on above: Expected: 10/29/2024 , Expires: 10/29/2025 Start: 10-02-2024 End: 10-02-2024 Patient encounter procedure 10/02/2024 3:50 PM EST Routine Office Visit OB/Gynecology [address] [place], [place] [id number] Sarath Hale MD [address] [place] [address] OB Routine OB/Gynecology Comment on above: OB Routine Start: 10-02-2024 End: 10-02-2025 OBSTETRIC ULTRASOUND WHI OBSTETRIC ULTRASOUND WHI Anc Imaging Routine 16 weeks gestation of Expected: 10/02/2024, Expires: 10/02/2025 [facility] Work Phone: Comment on above: Expected: 10/02/2024 , Expires: 10/02/2025 Start: 09-04-2024 End: 09-04-2024 Patient encounter procedure [facility]aternal Medicine Comment on above: Nuchal OB Routine Start: 08-07-2024 End: 11-06-2024 ANEMIA REFLEX PANEL ANEMIA REFLEX PANEL Lab Routine 8 weeks gestation of Encounter for care in first trimester of first Expected: 08/07/2024, Expires: 11/06/2024 [facility] Work Phone: Comment on above: Expected: 08/07/2024 , Expires: 11/06/2024 Start: 08-07-2024 End: 11-06-2024 Hemoglobin A1c in Blood HEMOGLOBIN A1C Lab Routine 8 weeks gestation of Encounter for care in first trimester of first Expected: 08/07/2024, Expires: 11/06/2024 [facility] Comment on above: Expected: 08/07/2024 , Expires: 11/06/2024 Start: 08-07-2024 End: 11-06-2024 HEMOGLOBIN EVALUATION CASCADE HEMOGLOBIN EVALUATION CASCADE Lab Routine Encounter for supervision of normal first in first trimester Expected: 08/07/2024, Expires: 11/06/2024 [facility] Comment on above: Expected: 08/07/2024 , Expires: 11/06/2024 Start: 08-07-2024 End: 11-06-2024 Hepatitis B virus surface Ag [Presence] in Serum HEPATITIS B SURFACE ANTIGEN Lab Routine 8 weeks gestation of Encounter for care in first trimester of first Expected: 08/07/2024, Expires: 11/06/2024 [facility] Comment on above: Expected: 08/07/2024 , Expires: 11/06/2024 Start: 08-07-2024 End: 11-06-2024 Hepatitis C virus Ab [Presence] in Serum HEPATITIS C ANTIBODY IA WITH CONFIRMATION Lab Routine 8 weeks gestation of Encounter for care in first trimester of first Expected: 08/07/2024, Expires: 11/06/2024 [facility] Comment on above: Expected: 08/07/2024 , Expires: 11/06/2024 Start: 08-07-2024 End: 11-06-2024 HIV 1+2 Ab [Presence] in Serum or Plasma by Immunoassay HIV 1/2 COMBO WITH REFLEX TO DIFFERENTIATION Lab Routine 8 weeks gestation of Encounter for care in first trimester of first Expected: 08/07/2024, Expires: 11/06/2024 [facility] Comment on above: Expected: 08/07/2024 , Expires: 11/06/2024 Start: 08-07-2024 End: 08-07-2025 NUCHAL TRANSLUCENCY WHI NUCHAL TRANSLUCENCY WHI Anc Imaging Routine 8 weeks gestation of Encounter for care in first trimester of first Expected: 08/07/2024, Expires: 08/07/2025 [facility] Comment on above: Expected: 08/07/2024 , Expires: 08/07/2025 Start: 08-07-2024 End: 11-06-2024 RUBELLA IGG ANTIBODY RUBELLA IGG ANTIBODY Lab Routine 8 weeks gestation of Encounter for care in first trimester of first Expected: 08/07/2024, Expires: 11/06/2024 [facility] Comment on above: Expected: 08/07/2024 , Expires: 11/06/2024 Start: 08-07-2024 End: 11-06-2024 SYPHILIS TREPONEMAL W/REFLEX SYPHILIS TREPONEMAL W/REFLEX Lab Routine 8 weeks gestation of Encounter for care in first trimester of first Expected: 08/07/2024, Expires: 11/06/2024 [facility] Comment on above: Expected: 08/07/2024 , Expires: 11/06/2024 Start: 08-07-2024 End: 11-06-2024 TYPE + SCREEN TYPE + SCREEN Blood Bank Routine 8 weeks gestation of Encounter for care in first trimester of first Expected: 08/07/2024, Expires: 11/06/2024 [facility] Comment on above: Expected: 08/07/2024 , Expires: 11/06/2024 Start: 04-08-2024 Covid-19 Vaccine () Covid-19 Vaccine () [facility] Start: 04-08-2024 Influenza vaccination Influenza Vacc ine (#1) [facility] Start: 04-18-2023 End: 04-18-2023 Telemedicine consultation with patient 04/18/2023 Telemedicine Sleep Medicine Maria Del Carmen Pérez MD [address] [place] [address] Sleep Medicine [facility] Start: 04-08-2023 Influenza vaccination O [facility] Start: 03-08-2023 End: 09-08-2023 TOXICOLOGY SCREEN URINE - UDRG TOXICOLOGY SCREEN URINE - UDRG Fluids Routine Narcolepsy with cataplexy Expected: 03/08/2023, Expires: 09/08/2023 [facility] Comment on above: Expected: 03/08/2023 , Expires: 09/08/2023 Start: 03-08-2023 End: 03-08-2023 Patient encounter procedure 03/08/2023 Office Visit Sleep Medicine Maria Del Carmen Pérez MD [address] [place] [address] Sleep [facility] Start: 08-08-2022 DEPRESSION ASSESSMENT DEPRESSION ASS ESSMENT [facility] Start: 04-08-2022 Influenza vaccination O [facility] Start: 09-01-2019 Tetanus vaccination TETANUS [facility] Start: 09-01-2019 Urine microalbumin profile [facility] Start: 2018 PAP TESTING PAP TESTING [facility] Start: 2018 Screening for malign ant neoplasm of cervix [facility] Start: 2015 Anxiety Screening Anxiety Screening [facility] Start: 2015 Depression Screening Depression Scre [facility] Start: 2015 HEPATITIS C SCREENING HEPATITIS C [facility] Start: 2015 Hepatitis C screening Hepatitis C [facility] Start: 2015 HIV SCREENING HIV SCREENING [facility] Start: 2015 HIV screening HIV Screening [facility] Start: 2013 Screening for Chlamy erik trachomatis CHLAMYDIA SCREEN [facility] Start: 2012 HIV screening HIV SCREENING DISCUSSI ON [facility] Start: 2012 HPV Vaccine (1 - 3-d ose series) HPV Vaccine (1 - 3-dose series) [facility] Start: 2011 PEDS TO ADULT TRANSI TION ANNUAL ASSESSMENT PEDS TO ADULT TRANSITION ANNUAL ASSESSMENT [facility] Start: 2009 PEDS TO ADULT TRANSI TION INITIAL DISCUSSION PEDS TO ADULT TRANSITION INITIAL DISCUSSION [facility] Start: 2008 HPV VACCINE (1 - 2-d ose series) HPV VACCINE (1 - 2-dose series) [facility] Start: 2008 Vaccination for jaquan n papillomavirus HPV VACCINE ADOL (1 - 2-dose series) [facility] Start: 2006 HPV Vaccine (1 - 2-d ose series) HPV Vaccine (1 - 2-dose series) [facility] Start: 02-08-1998 COVID-19 VACCINE (#1) COVID-19 VACCI NE (#1) [facility] Start: 1997 Hepatitis C screening HEPATITI S C VIRUS SCREENING [facility] Start: 1997 Screening for Chlamy erik trachomatis GONORRHEA SCREEN [facility] ALLERGEN SKIN TEST-PENICILLIN ALLERGEN SKIN TEST-PENICILLIN Procedures Routine Adverse effect of penicillin, sequela Ordered: 01/10/2025 [facility] Work Phone: Comment on above: Ordered: 01/10/2025 Bacteria identified in Urine by Culture URINE CULTURE Microbiology Routine 8 weeks gestation of Encounter for care in first trimester of first 08/07/2024 12:12 PM [facility] Chlamydia trachomatis+Neisseria gonorrhoeae DNA [Presence] in Unspecified specimen by BRIAN with probe detection GONORRHEA/CHLAMYDIA NAAT Lab Routine 8 weeks gestation of Encounter for care in first trimester of first 08/07/2024 12:12 PM [facility] PAP TEST PAP TEST Lab Rou suma Screening for cervical cancer 08/07/2024 12:12 PM [facility] ROUTINE, GR OUP B STREPTOCOCCUS BY PCR ROUTINE, GROUP B STREPTOCOCCUS BY PCR Microbiology Routine Encounter for supervision of normal first in third trimester (HCC) 35 weeks gestation of (HCC) Penicillin allergy 02/13/2025 3:32 PM EDT [facility] Work Phone: Immunizations Immunization Date Immunization Notes Care Provider Kelly garcia 09-16-2016 typhoid vaccine, jose e, oral Lázaro Soriano MD Work Phone: [facility] 09-01-2009 Meningococcal, MCV4, unspecified conjugate formulation(groups A, C, Y and W-135) Lázaro Soriano MD Work Phone: [facility] Work Phone: 09-01-2009 tetanus toxoid, redu glen diphtheria toxoid, and acellular pertussis vaccine, adsorbed Lázaro Soriano MD Work Phone: [facility] Work Phone: 08-08-2009 tetanus toxoid, redu glen diphtheria toxoid, and acellular pertussis vaccine, adsorbed Yoli Willis [facility] Work Phone: 09-26-2007 hepatitis A vaccine, unspecified formulation Lázaro Soriano MD Work Phone: [facility] Work Phone: 09-19-2002 measles, mumps and rubella virus vaccine Lázaro Soriano MD Work Phone: [facility] 09-19-2002 poliovirus vaccine, inactivated Lázaro Soriano MD Work Phone: [facility] 09-25-2001 diphtheria, tetanus toxoids and acellular pertussis vaccine Lázaro Soriano MD Work Phone: [facility] Work Phone: 03-02-2000 hepatitis A vaccine, unspecified formulation Lázaro Soriano MD Work Phone: [facility] Work Phone: 03-02-2000 measles, mumps and rubella virus vaccine Lázaro Soirano MD Work Phone: [facility] Work Phone: 03-02-2000 Meningococcal, MCV4, unspecified conjugate formulation(groups A, C, Y and W-135) Lázaro Soriano MD Work Phone: [facility] Work Phone: 03-02-2000 typhoid vaccine, unspecified formulation Lázaro Soriano MD Work Phone: [facility] Work Phone: 03-02-2000 varicella virus vaccine Chani Soriano MD Work Phone: [facility] Work Phone: 03-02-2000 yellow fever vaccine Lázaro Mitchell MD Work Phone: [facility] Work Phone: 01-07-1999 diphtheria, tetanus toxoids and acellular pertussis vaccine Lázaro Soriano MD Work Phone: [facility] Work Phone: 01-07-1999 haemophilus influenz ae type b vaccine, HbOC conjugate Lázaro Soriano MD Work Phone: [facility] Work Phone: 08-07-1998 measles, mumps and rubella virus vaccine Lázaro Soriano MD Work Phone: [facility] Work Phone: 03-12-1998 diphtheria, tetanus toxoids and acellular pertussis vaccine Lázaro Soriano MD Work Phone: [facility] Work Phone: 03-12-1998 haemophilus influenz ae type b vaccine, HbOC conjugate Lázaro Soriano MD Work Phone: [facility] Work Phone: 03-12-1998 hepatitis B vaccine, pediatric or pediatric/adolescent dosage Lázaro Soriano MD Work Phone: [facility] Work Phone: 03-12-1998 poliovirus vaccine, inactivated Lázaro Soriano MD Work Phone: [facility] Work Phone: 1997 diphtheria, tetanus toxoids and acellular pertussis vaccine Lázaro Soriano MD Work Phone: [facility] Work Phone: 1997 haemophilus influenz ae type b vaccine, HbOC conjugate Lázaro Soriano MD Work Phone: [facility] Work Phone: 1997 poliovirus vaccine, inactivated Lázaro Soriano MD Work Phone: [facility] Work Phone: 1997 diphtheria, tetanus toxoids and acellular pertussis vaccine Lázaro Soriano MD Work Phone: [facility] Work Phone: 1997 haemophilus influenz ae type b vaccine, HbOC conjugate Lázaro Soriano MD Work Phone: [facility] Work Phone: 1997 hepatitis B vaccine, pediatric or pediatric/adolescent dosage Lázaro Soriano MD Work Phone: [facility] Work Phone: 1997 poliovirus vaccine, inactivated Lázaro Soriano MD Work Phone: [facility] Work Phone: 1997 haemophilus influenz ae type b vaccine, HbOC conjugate Lázaro Soriano MD Work Phone: [facility] 1997 hepatitis B vaccine, pediatric or pediatric/adolescent dosage Lázaro Soriano MD Work Phone: [facility] Work Phone: 1997 poliovirus vaccine, inactivated Lázaro Soriano MD Work Phone: [facility] Work Phone: Payers Date Payer Category Payer Self-pay 2022 Private Health Insurance [employer] PPO [id number] 2022 Unknown 2022 Unknown [id number] 1997 Unknown [id number] 1997 Unknown [id number] 1997 Unknown [id number] Unknown [id number] Social History Date Type Detail Facility Start: 07-28-2011 End: 09-08-2022 Tobacco smoking status NHIS Never smoked tobacco [facility] Start: 07-28-2011 End: 09-08-2022 Tobacco use and exposure Smokeless tobacco non-user [facility] Start: 09-08-2022 End: 03-01-2025 Alcohol intake Current non-drinker of alcohol (finding) [facility] Start: 1997 Sex Assigned At Not on file [facility] Start: 08-29-2022 End: 09-08-2022 Exposure to SARS-CoV-2 (event) Unable to assess [facility] Start: 07-04-2023 End: 08-07-2024 History of Social function [facility] Start: 07-04-2023 End: 08-07-2024 Tobacco use panel [facility] National Score (1-100), lower number is lower risk Not on file [facility] Start: 1997 Sex Assigned At Female [facility] Start: 05-06-2023 Gender identity Identifies as female gender (finding) [facility] Start: 08-06-2024 Education 17 [facility] Start: 06-22-2024 [facility] Start: 08-06-2024 Sexual orientation Heterosexual (christoph bonner) [facility] Start: 09-05-2024 Alcoholic beverage intake Current drinker of alcohol (finding) [facility] Start: 09-05-2024 Alcohol Comment Occasionally [facility] NEGATED: Highlighted row - - [facility] Work Phone: Goals Date Patient Goal Desired Activity /State Personal health goal Functional Status Date Assessment Result Facility 03-05-2015 Are you deaf, or do you have serious difficulty hearing No 03/05/2015 4:06 PM Edgar Herrera RN No [facility] 03-05-2015 Are you blind, or do you have serious difficulty seeing, even when wearing glasses No 03/05/2015 4:06 PM Edgar Herrera RN No [facility] 03-05-2015 Do you have serious difficulty walking or climbing stairs No 03/05/2015 4:06 PM Edgar Herrera RN No [facility] 03-05-2015 Do you have difficul ty dressing or bathing No 03/05/2015 4:06 PM Edgar Herrera RN No [facility] 03-05-2015 Because of a physica l, mental, or emotional condition, do you have difficulty doing errands alone such as visiting a physician's office or shopping No 03/05/2015 4:06 PM EDT Edgar Ac RN No [facility] NEGATED: Highlighted row Functional performance Functional status health issues are not documented Disease [facility] Work Phone: Mental Status Date Assessment Result Facility 03-05-2015 Because of a physical, mental, or emotional condition, do you have serious difficulty concentrating, remembering, or making decisions No 03/05/2015 4:06 PM EDT Edgar Ac RN No [facility] NEGATED: Highlighted row Cognitive function [Interpretation] Cognitive status health issues are not documented Disease [facility] Work Phone: Clinical Notes 09-08-2022 to 03-04-2025 Quick Notes - Kacey Vo APRN.CNM - 03/04/2025 2:33 PM EDTPrenatal Quick Notes - Kacey Vo APRN.CNM - 03/04/2025 2:33 PM EDTPatient InstructionsPatient Instructions Note Date & Type Note Facility 03-04-2025 Progress note Formatting of t his note might be different from the original. S: Tiffanie Mercado is a 29 year old female who presents at 38.3 weeks gestation for a routine visit. Positive movements. Denies any cramps or contractions. Denies headache, visual changes, chest pain, shortness of breath, vaginal bleeding, leakage of fluid, or dysuria. Feeling well, no complaints. O: See flow sheet Gen: No apparent distress Abd: Gravid, non tender ASSESSMENT/PLAN: 1. Encounter for supervision of normal first in third trimester 2. 38 weeks gestation of - Eating dates daily and drinking tea - Reviewed labor precautions and when to call office - GBS negative - RTO 1 week Kacey Vo APRN.CNM [facility] 03-04-2025 Miscellaneous Notes S: Tiffanie Mercado is a 29 year old female who presents at 38.3 weeks gestation for a routine visit. Positive movements. Denies any cramps or contractions. Denies headache, visual changes, chest pain, shortness of breath, vaginal bleeding, leakage of fluid, or dysuria. Feeling well, no complaints. O: See flow sheet Gen: No apparent distress Abd: Gravid, non tender ASSESSMENT/PLAN: 1. Encounter for supervision of normal first in third trimester 2. 38 weeks gestation of - Eating dates daily and drinking tea - Reviewed labor precautions and when to call office - GBS negative - RTO 1 week Kacey Vo APRN.CNM documented in this encounter [facility] 03-04-2025 Instructions Monica Luke MA - 03/04/2025 2:22 PM EDT SEQUENTIAL SCREENINGS The [facility] offers sequential screenings for women who are interested in screenings for chromosomal abnormalities and certain defects during a . The sequential screen combines ultrasound and blood tests to determine the risk of chromosomal abnormalities, including Down's Syndrome (Trisomy 21) and Trisomy 18, as well as open neural tube defects including spina bifida. Ultrasound examination is performed between 11 weeks and 13 weeks gestational age. Blood tests are drawn after the ultrasound and again later in the between 15 and 21 weeks gestational age. Please let your physician know if you are interested in this testing. It will require an appointment with our support technician. This is not an ultrasound performed by a physician in our office during a routine visit. SIGNS AND SYMPTOMS OF LABOR 1. Contractions every 10 minutes or more often 2. Clear, pink, or brownish fluid (water) leaking from vagina 3. Feeling that baby is pushing down, pressure 4. Low, dull backache 5. Cramps that feel like a period 6. Cramps with or without diarrhea If you notice any of the above symptoms, contact our office at [phone] and ask to speak with a nurse. After hours, you can call doctors registry at [phone] OR call [facility] at [phone] and ask to have the doctor social media content specialist paged. If you consider this an emergency, dial or go to your nearest emergency department. NEED HELP? Are you dealing with a violent or abusive relationship? Are you a victim of rape or sexual assult? Call [facility] ([place]) 24 hour Crisis Hotline: 319.221.3857 or 898-042-9659. MANUAL Your Guide to a Healthy manual is now on-line. Visit [email or web address] to download your free copy documented in this encounter [facility] 03-01-2025 Progress note Formatting of t his note might be different from the original. S: Tiffanie Mercado is a 29 year old female who presents at 38 weeks gestation for a routine visit. Positive movements. Occasional carl patel. Denies headache, visual changes, chest pain, shortness of breath, vaginal bleeding, leakage of fluid, or dysuria. Feeling well, no complaints. Requesting CE today. O: See flow sheet Gen: No apparent distress Abd: Gravid, nontender CE FT/Thick/High ASSESSMENT/PLAN: 1. 38 weeks gestation of 2. Encounter for supervision of normal first in third trimester - GBS negative - Educated on labor precautions, timing of contractions, and when to call office - RTO 1 week or sooner if needed Kacey Vo APRN.CNM [facility] 03-01-2025 Miscellaneous Notes S: Tiffanie Mercado is a 29 year old female who presents at 38 weeks gestation for a routine visit. Positive movements. Occasional carl patel. Denies headache, visual changes, chest pain, shortness of breath, vaginal bleeding, leakage of fluid, or dysuria. Feeling well, no complaints. Requesting CE today. O: See flow sheet Gen: No apparent distress Abd: Gravid, nontender CE FT/Thick/High ASSESSMENT/PLAN: 1. 38 weeks gestation of 2. Encounter for supervision of normal first in third trimester - GBS negative - Educated on labor precautions, timing of contractions, and when to call office - RTO 1 week or sooner if needed Kacey Vo APRN.CNM documented in this encounter [facility] 03-01-2025 Instructions Evette Holguin MA - 03/01/2025 9:23 AM EDT SEQUENTIAL SCREENINGS The [facility] offers sequential screenings for women who are interested in screenings for chromosomal abnormalities and certain defects during a . The sequential screen combines ultrasound and blood tests to determine the risk of chromosomal abnormalities, including Down's Syndrome (Trisomy 21) and Trisomy 18, as well as open neural tube defects including spina bifida. Ultrasound examination is performed between 11 weeks and 13 weeks gestational age. Blood tests are drawn after the ultrasound and again later in the between 15 and 21 weeks gestational age. Please let your physician know if you are interested in this testing. It will require an appointment with our support technician. This is not an ultrasound performed by a physician in our office during a routine visit. SIGNS AND SYMPTOMS OF LABOR 1. Contractions every 10 minutes or more often 2. Clear, pink, or brownish fluid (water) leaking from vagina 3. Feeling that baby is pushing down, pressure 4. Low, dull backache 5. Cramps that feel like a period 6. Cramps with or without diarrhea If you notice any of the above symptoms, contact our office at [phone] and ask to speak with a nurse. After hours, you can call doctors registry at [phone] OR call [facility] at [phone] and ask to have the doctor social media content specialist paged. If you consider this an emergency, dial 9-1-4 or go to your nearest emergency department. NEED HELP? Are you dealing with a violent or abusive relationship? Are you a victim of rape or sexual assult? Call [facility] ([place]) 24 hour Crisis Hotline: 977.795.6409 or 236-426-1095. MANUAL Your Guide to a Healthy manual is now on-line. Visit [email or web address] to download your free copy documented in this encounter [facility] 02-22-2025 Progress note Formatting of t his note might be different from the original. KJ - S: Hilario denies LOF, contractions or vaginal bleeding. She reports heartburn. O: 37w0d, see flow sheet SENSITIVE EXAM: Sensitive exam not performed. A/P: Assessment & Plan 37 weeks gestation of ([facility]) Orders: URINE OB DIP B/O Encounter for supervision of normal first in third trimester ([facility]) Orders: URINE OB DIP B/O Heartburn - advised on pepcid Reviewed labor & FM precautions Sarath Hale MD [facility] 02-22-2025 Miscellaneous Notes KJ - S: Hilario denies LOF, contractions or vaginal bleeding. She reports heartburn. O: 37w0d, see flow sheet SENSITIVE EXAM: Sensitive exam not performed. A/P: Assessment & Plan 37 weeks gestation of ([facility]) Orders: URINE OB DIP B/O Encounter for supervision of normal first in third trimester ([facility]) Orders: URINE OB DIP B/O Heartburn - advised on pepcid Reviewed labor & FM precautions Sarath Hale MD documented in this encounter [facility] 02-22-2025 Instructions Evette Holguin MA - 02/22/2025 1:10 PM EDT SEQUENTIAL SCREENINGS The [facility] offers sequential screenings for women who are interested in screenings for chromosomal abnormalities and certain defects during a . The sequential screen combines ultrasound and blood tests to determine the risk of chromosomal abnormalities, including Down's Syndrome (Trisomy 21) and Trisomy 18, as well as open neural tube defects including spina bifida. Ultrasound examination is performed between 11 weeks and 13 weeks gestational age. Blood tests are drawn after the ultrasound and again later in the between 15 and 21 weeks gestational age. Please let your physician know if you are interested in this testing. It will require an appointment with our support technician. This is not an ultrasound performed by a physician in our office during a routine visit. SIGNS AND SYMPTOMS OF LABOR 1. Contractions every 10 minutes or more often 2. Clear, pink, or brownish fluid (water) leaking from vagina 3. Feeling that baby is pushing down, pressure 4. Low, dull backache 5. Cramps that feel like a period 6. Cramps with or without diarrhea If you notice any of the above symptoms, contact our office at [phone] and ask to speak with a nurse. After hours, you can call doctors registry at [phone] OR call [facility] at [phone] and ask to have the doctor social media content specialist paged. If you consider this an emergency, dial 9-1-0 or go to your nearest emergency department. NEED HELP? Are you dealing with a violent or abusive relationship? Are you a victim of rape or sexual assult? Call [facility] ([place]) 24 hour Crisis Hotline: 205.823.5820 or 114-510-4966. MANUAL Your Guide to a Healthy manual is now on-line. Visit [email or web address] to download your free copy documented in this encounter [facility] 02-13-2025 Progress note Formatting of t his note might be different from the original. S: Tiffanie Mercado is a 29 year old female who presents at 35.5 weeks gestation for a routine visit. Positive movements. Occasional carl patel. Denies headache, visual changes, chest pain, shortness of breath, vaginal bleeding, leakage of fluid, or dysuria. Feeling well, no complaints. O: See flow sheet Gen: No apparent distress Abd: Gravid, non tender TAUS- confirms vertex ASSESSMENT/PLAN: 1. Encounter for supervision of normal first in third trimester 2. 35 weeks gestation of 3. Penicillin allergy - GBS today - If GBS +- cannot use PCN due to allergy - Water consent signed and questions answered - PTL precautions reviewed and when to call - RTO 1 week / weekly visits Kacey Vo APRN.CNM [facility] 02-13-2025 Miscellaneous Notes S: Tiffanie Mercado is a 29 year old female who presents at 35.5 weeks gestation for a routine visit. Positive movements. Occasional carl patel. Denies headache, visual changes, chest pain, shortness of breath, vaginal bleeding, leakage of fluid, or dysuria. Feeling well, no complaints. O: See flow sheet Gen: No apparent distress Abd: Gravid, non tender TAUS- confirms vertex ASSESSMENT/PLAN: 1. Encounter for supervision of normal first in third trimester 2. 35 weeks gestation of 3. Penicillin allergy - GBS today - If GBS +- cannot use PCN due to allergy - Water consent signed and questions answered - PTL precautions reviewed and when to call - RTO 1 week / weekly visits Kacey Vo APRN.CNM documented in this encounter [facility] 02-13-2025 Instructions Kacey Vo APRN.CNM - 02/13/2025 2:41 PM EDT Images from the original note were not included. SEQUENTIAL SCREENINGS The [facility] offers sequential screenings for women who are interested in screenings for chromosomal abnormalities and certain defects during a . The sequential screen combines ultrasound and blood tests to determine the risk of chromosomal abnormalities, including Down's Syndrome (Trisomy 21) and Trisomy 18, as well as open neural tube defects including spina bifida. Ultrasound examination is performed between 11 weeks and 13 weeks gestational age. Blood tests are drawn after the ultrasound and again later in the between 15 and 21 weeks gestational age. Please let your physician know if you are interested in this testing. It will require an appointment with our support technician. This is not an ultrasound performed by a physician in our office during a routine visit. Preparing for labor: Eat dates to promote spontaneous labor! Has an oxytocin-like effect on the body, leading to increased sensitivity of the uterus. Stimulates uterine contractions. Reduces hemorrhage the way oxytocin does. Date fruit contains saturated and unsaturated fatty acids such as oleic, linoleic, and linolenic acids, which are involved in saving and supplying energy and construction of prostaglandins. In addition, serotonin, tannin, and calcium in date fruit contribute to the contraction of smooth muscles of the uterus. Date fruit also has a laxative effect, which stimulates uterine contractions. Six dates per day is the magic number--provided that you re eating smaller deglet noor dates. Deglet noor dates are about 1 inch long. Medjool dates can be up to 2 inches long. If you re eating medjool dates, you only need about 3 dates to reach the 75 grams recommended in the studies. Not sure which type of date you have in your refrigerator? It s probably a deglet noor. How to Eat Dates During Dates are a healthy and delicious snack, so how can you add them to your diet? Add dates during in this awesome oatmeal recipe. Add dates to replace sugar in your favorite recipe or to fabio your homemade almond milk. Use dates and nuts to make an easy pie crust in the food cashier. Add soaked dates to homemade nut butter for a sweet treat. Add dates to fabio homemade salad dressing. Add dates during easily with these yummy (paleo friendly) bars made from dates. What Is Red Raspberry Fifty-Six Tea? Red raspberry leaf tea comes from the leaves of the red raspberry plant. This herbal tea has been used for centuries to support respiratory, digestive and uterine health, particularly during and childbearing years. While usually known as a female herb, red raspberry leaf tea can also help support the prostate and various stomach ailments in children. How It Can Help and Red raspberry leaf tea can help to make labor faster and reduce complications and interventions during . One study found that women who consumed RRL tea regularly are less likely to go overdue or give prematurely. These women may also be less likely to receive an artificial rupture of their membranes or require a section, forceps, or vacuum than the women in the control group. Red raspberry leaf has many other benefits to , , and too. How Much Red Raspberry Fifty-Six Tea to Drink? With your doctor or property assessment monitor s approval, start with 1 cup of red raspberry leaf tea per day starting in the second trimester. Watch for any uterine cramping or other reactions. If you don t experience any, you can talk to your healthcare provider about increasing to 2 cups per day. Again, watch for any uterine cramping. If you notice any, cut back on your dosage for two weeks and try again. Keep in mind, some moms have irritable uteruses and can only drink red raspberry leaf tea once they reach their due date because of uterine cramping. Is Red Raspberry Fifty-Six Tea the Same as Raspberry Fifty-Six Tea? How About Plain Old Raspberry Tea? Sometimes. You really need to look at the ingredients to be sure. Note that there is no difference between red raspberry leaf and raspberry leaf. FanSnap or Native Raspberry Fifty-Six Tea are two good brands. The red raspberry leaf teas that we recommend are 100% red raspberry leaf. Other teas labeled as raspberry are often a blend of rosehips, hibiscus, raspberry leaves, and raspberry flavor. So they may not be as effective. The teas to avoid are raspberry-flavored herbal teas, which may have ingredients like hibiscus, grace hips, apples, elderberries, natural and artificial raspberry flavors. Teas like this don t contain raspberry leaf at all and thus won t offer any of the potential benefits of RRLT outlined in this article. The [employer] Circuit www.[email or web address] I named this 'circuit' after my friend Kenna Jones, who shared and discussed it with me when I was working with a client whose labor seemed to be stalled out and no longer progressing... This circuit is useful to help get the baby lined up, ideally, in the Left Occiput Anterior (YOUNG) Position, both before labor begins and when some corrections need to be done during labor. Prenatally, this position set can help to rotate a baby. As a natural method of induction, this can help get things going if baby just needed a gentle nudge of position to set things off. To the best of my knowledge, this group of positions will not hurt a baby that is already lined up correctly. - Yoli Kaye Before you Begin..... This circuit takes at least 90 minutes to complete so clear your schedule and make mental preparations so you can relax in your environment. The second step requires a lot of pillows so gather them up before beginning Before starting, you should empty your bladder! Have a nice drink nearby, and make sure it has a straw! If you are having contractions, this circuit should bedone through contractions, try not to change positions between steps Step One: Open-knee Chest Stay in this position for 30 minutes, start in cat/cow, then drop your chest as low as you can to the bed or the floor and your bottom as high as you can. Knees should be fairly wide apart, and the angle between the torso/thighs should be wider than 90 degrees. Wiggle around, prop with lots of pillows and use this time to get totally relaxed. This position allows the baby to scoot out of the pelvis a bit and gives them room to rotate, shift their head position, etc. If the person finds it helpful,careful positioning with a rebozo under the belly, with gentle tension from a support person behindcan help maintain this position for the full 30minutes. Step Two: Exaggerated Left Side Lying Roll to your left side, bringing your top leg as high as possible and keeping your bottom leg straight. Roll forward as much as possible,again using a lot of pillows. Sink into the bed and relax some more. If you fall asleep, that's totally okay and you can stay there! If not, stay here for at least another half an hour. Try and get your top right leg up towards your head and get as rolled over onto your belly as much as possible. If you repeat the circuit during labor, try alternating left and right sides. We know the photo the left is actually right side... just flip the image in your head. Step Three: Moving and Lunges Lunge, walk stairs facing sideways, 2 at a time, (have a tree expert downstairs of you!), take a walk outside with one foot on the curb and the other on the street, sit on a ball and hula- anything that's upright and putting your pelvis in open, asymmetrical positions. Spend at least 30 minutes doing this one as well to give your baby a chance to move down. If you are lunging or stair or curb walking, you should lunge/walk/go up stairs in the direction that feels better to you. The davis with the lunge is that the toes of the higher leg and mom's belly button should be at right angles. Do not lunge over your knee, that closes the pelvis. Kenna Jones: Circuit Creator - www.[facility].c nancy Kaye, CD, BDT (NICHO), LCCE, FACCE: Supporting Content - www.[email or web address].[email or web address] Memekya Rendon Eusebio: Photography - www.[email or web address] Plastics Plusto.Jumptap Lana Hilario CD/CDT (BLAYNE): Print and Improvement Intern - www.Pixability.[employer] Circuit Masterminds The Imprivata Circuit www.[email or web address].Jumptap SIGNS AND SYMPTOMS OF LABOR 1. Contractions every 10 minutes or more often 2. Clear, pink, or brownish fluid (water) leaking from vagina 3. Feeling that baby is pushing down, pressure 4. Low, dull backache 5. Cramps that feel like a period 6. Cramps with or without diarrhea If you notice any of the above symptoms, contact our office at [phone] and ask to speak with a nurse. After hours, you can call doctors registry at [phone] OR call [facility] at [phone] and ask to have the doctor social media content specialist paged. If you consider this an emergency, dial 9-1-3 or go to your nearest emergency department. NEED HELP? Are you dealing with a violent or abusive relationship? Are you a victim of rape or sexual assult? Call [facility] ([place]) 24 hour Crisis Hotline: 590.218.6425 or 325-036-9735. MANUAL Your Guide to a Healthy manual is now on-line. Visit [email or web address] Yamileth to download your free copy documented in this encounter [facility] 01-30-2025 Progress note Formatting of t his note might be different from the original. YVON-S: Tiffanie Mercado is a 29 year old female who presents at 33w5d with MARTI:03/15/2025, by Last Menstrual Period for a routine visit. Denies headache, visual changes, chest pain, shortness of breath, vaginal bleeding, leakage of fluid, or dysuria. Feeling well, no complaints. O: See flow sheet Gen: No apparent distress Abd: Gravid, nontender ASSESSMENT/PLAN: 1. Encounter for supervision of normal first in third trimester -GBS next visit -Continue PNV -Reviewed perineal massage and ways to promote spontaneous labor. 2. 33 weeks gestation of 3. Penicillin allergy -PCN allergy consult completed but unable to complete testing due to vasovagal reaction. No answer from consult. Will await GBS testing. PTL precautions reviewed and when to call RTO in 2 weeks Regina Sales APRN.CNM [facility] 01-30-2025 Miscellaneous Notes GEOVANYS: Tiffanie Mercado is a 29 year old female who presents at 33w5d with MARTI:03/15/2025, by Last Menstrual Period for a routine visit. Denies headache, visual changes, chest pain, shortness of breath, vaginal bleeding, leakage of fluid, or dysuria. Feeling well, no complaints. O: See flow sheet Gen: No apparent distress Abd: Gravid, nontender ASSESSMENT/PLAN: 1. Encounter for supervision of normal first in third trimester -GBS next visit -Continue PNV -Reviewed perineal massage and ways to promote spontaneous labor. 2. 33 weeks gestation of 3. Penicillin allergy -PCN allergy consult completed but unable to complete testing due to vasovagal reaction. No answer from consult. Will await GBS testing. PTL precautions reviewed and when to call RTO in 2 weeks Regina Sales APRN.CNM documented in this encounter [facility] 01-30-2025 Instructions Rgeina Sales APRN.CNM - 01/30/2025 7:58 AM EDT Images from the original note were not included. _ Group B Strep In What is group B strep (GBS)? GBS is one of many common bacteria that live in the human body without causing harm in healthy people.GBS can be found in the intestine, rectum, and vagina in about 2 of every 10 women near the time of . GBS is not a sexually transmitted infection anddoes not cause any vaginal symptoms. When does GBS cause infection? GBS can cause your baby to get pneumonia or a blood infection if your baby gets GBS from your vagina during .Full-term babies whose mothers carry GBS in the vagina at the time of have a 1 in 200 chance of getting sick from GBS during the first few days after . Women who have GBS in their vagina during labor can get an infection in their uterus. How do I know if I carry GBS? Some women have GBS all the time. In many women, it grows in the vagina at times then goes away and comes back again later. During a visit when you are between 35 and 37 weeks , you or your health care provider will collect a sample by touching the outer part of your vagina and just inside the anus with a sterile Q-tip. If GBS grows from that sample, you will be told that you carry GBS and this will be recorded in your chart. You or your provider can write the test results in the box on the next page so you have a record. How can infection from GBS be prevented? If your culture is positive for GBS within 5 weeks of giving , it is very likely that you will still have GBS in your vagina when you go into labor.Your health care provider will recommend that you receive the antibiotic penicillin during labor. GBS is very sensitive to penicillin and is easily removed from the vagina. A few IV doses of penicillin given up to 4 hours before almost always prevents your baby from picking up GBS during . Do I have to wait for labor to take penicillin? GBS is usually not harmful to you or your baby before you are in labor.GBS is easy to remove from the vagina, but iti s not easy to remove from the intestine.If you take penicillin before you are in labor,GBS will return to the vagina as soon as you stop taking the medication, which does not get rid of GBS in your intestine. It is best to take penicillin during labor when it can get rid of the GBS in your vagina quickly and best prevent your baby from getting sick. The one exception is that GBS can occasionally cause a urinary tract infection during . If you get a urinary tract infection, you should be treated with antibiotics at that time.You should also receive penicillin again when you are in labor. What if I don t have time to get penicillin while I m in labor? If you carry GBS in your vagina at the time of and are not able to receive penicillin before your baby is born, your baby will be watched closely for signs of GBS infection. Almost all babies who develop GBS infection will show signs within 24 hours of being born. How do I know if my baby has a GBS infection? If your baby gets a GBS infection, symptoms include difficulty breathing (including grunting or being pale), problems with temperature (too cold or too hot), difficulty with more spitting up than usual, or extreme sleepiness that interferes with . What is the treatment if my baby has a GBS infection? If the infection is caught early and your baby is full-term, most babies will completely recover with IV antibiotic treatment. Of the babies who get sick, about 1 in 6 can have serious complications. Some babies who are very sick will .In most cases, if you carry GBS in the vagina at the time of and are given IV penicillin in labor, the risk of your baby getting sick is very rare (about 1 in 4,000). What if I m allergic to penicillin? Penicillin is the best antibiotic for preventing GBS infection. However, women who are allergic to penicillin can receive different antibiotics during labor.Tell your health care provider if you are allergic to penicillin and what symptoms you had when you had that allergic reaction. For More Information: Centers for Disease Control and Prevention: www.cdc.gov/groupbstrep/ March of Dimes http://www.marchofdimes.org/pre gnancy/g lghy-t-zuwfe-infection.aspx Preparing for labor: Eat dates to promote spontaneous labor! Starts at 36 weeks Has an oxytocin-like effect on the body, leading to increased sensitivity of the uterus. Stimulates uterine contractions. Reduces hemorrhage the way oxytocin does. Date fruit contains saturated and unsaturated fatty acids such as oleic, linoleic, and linolenic acids, which are involved in saving and supplying energy and construction of prostaglandins. In addition, serotonin, tannin, and calcium in date fruit contribute to the contraction of smooth muscles of the uterus. Date fruit also has a laxative effect, which stimulates uterine contractions. Six dates per day is the magic number--provided that you re eating smaller deglet noor dates. Deglet noor dates are about 1 inch long. Medjool dates can be up to 2 inches long. If you re eating medjool dates, you only need about 3 dates to reach the 75 grams recommended in the studies. Not sure which type of date you have in your refrigerator? It s probably a deglet noor. How to Eat Dates During Dates are a healthy and delicious snack, so how can you add them to your diet? Add dates during in this awesome oatmeal recipe. Add dates to replace sugar in your favorite recipe or to fabio your homemade almond milk. Use dates and nuts to make an easy pie crust in the food cashier. Add soaked dates to homemade nut butter for a sweet treat. Add dates to fabio homemade salad dressing. Add dates during easily with these yummy (paleo friendly) bars made from dates. What Is Red Raspberry Fifty-Six Tea? Red raspberry leaf tea comes from the leaves of the red raspberry plant. This herbal tea has been used for centuries to support respiratory, digestive and uterine health, particularly during and childbearing years. While usually known as a female herb, red raspberry leaf tea can also help support the prostate and various stomach ailments in children. How It Can Help and Red raspberry leaf tea can help to make labor faster and reduce complications and interventions during . One study found that women who consumed RRL tea regularly are less likely to go overdue or give prematurely. These women may also be less likely to receive an artificial rupture of their membranes or require a section, forceps, or vacuum than the women in the control group. Red raspberry leaf has many other benefits to , , and too. How Much Red Raspberry Fifty-Six Tea to Drink? With your doctor or property assessment monitor s approval, start with 1 cup of red raspberry leaf tea per day starting in the second trimester. Watch for any uterine cramping or other reactions. If you don t experience any, you can talk to your healthcare provider about increasing to 2 cups per day. Again, watch for any uterine cramping. If you notice any, cut back on your dosage for two weeks and try again. Keep in mind, some moms have irritable uteruses and can only drink red raspberry leaf tea once they reach their due date because of uterine cramping. Is Red Raspberry Fifty-Six Tea the Same as Raspberry Fifty-Six Tea? How About Plain Old Raspberry Tea? Sometimes. You really need to look at the ingredients to be sure. Note that there is no difference between red raspberry leaf and raspberry leaf. [employer] Op or Traditional Next Generation Dances Raspberry Fifty-Six Tea are two good brands. The red raspberry leaf teas that we recommend are 100% red raspberry leaf. Other teas labeled as raspberry are often a blend of rosehips, hibiscus, raspberry leaves, and raspberry flavor. So they may not be as effective. The teas to avoid are raspberry-flavored herbal teas, which may have ingredients like hibiscus, grace hips, apples, elderberries, natural and artificial raspberry flavors. Teas like this don t contain raspberry leaf at all and thus won t offer any of the potential benefits of RRLT outlined in this article. The Imprivata Circuit www.Tasit.com I named this 'circuit' after my friend Kenna Jones, who shared and discussed it with me when I was working with a client whose labor seemed to be stalled out and no longer progressing... This circuit is useful to help get the baby lined up, ideally, in the Left Occiput Anterior (YOUNG) Position, both before labor begins and when some corrections need to be done during labor. Prenatally, this position set can help to rotate a baby. As a natural method of induction, this can help get things going if baby just needed a gentle nudge of position to set things off. To the best of my knowledge, this group of positions will not hurt a baby that is already lined up correctly. Winston Kaye Before you Begin..... This circuit takes at least 90 minutes to complete so clear your schedule and make mental preparations so you can relax in your environment. The second step requires a lot of pillows so gather them up before beginning Before starting, you should empty your bladder! Have a nice drink nearby, and make sure it has a straw! If you are having contractions, this circuit should bedone through contractions, try not to change positions between steps Step One: Open-knee Chest Stay in this position for 30 minutes, start in cat/cow, then drop your chest as low as you can to the bed or the floor and your bottom as high as you can. Knees should be fairly wide apart, and the angle between the torso/thighs should be wider than 90 degrees. Wiggle around, prop with lots of pillows and use this time to get totally relaxed. This position allows the baby to scoot out of the pelvis a bit and gives them room to rotate, shift their head position, etc. If the person finds it helpful,careful positioning with a rebozo under the belly, with gentle tension from a support person behindcan help maintain this position for the full 30minutes. Step Two: Exaggerated Left Side Lying Roll to your left side, bringing your top leg as high as possible and keeping your bottom leg straight. Roll forward as much as possible,again using a lot of pillows. Sink into the bed and relax some more. If you fall asleep, that's totally okay and you can stay there! If not, stay here for at least another half an hour. Try and get your top right leg up towards your head and get as rolled over onto your belly as much as possible. If you repeat the circuit during labor, try alternating left and right sides. We know the photo the left is actually right side... just flip the image in your head. Step Three: Moving and Lunges Lunge, walk stairs facing sideways, 2 at a time, (have a tree expert downstairs of you!), take a walk outside with one foot on the curb and the other on the street, sit on a ball and hula- anything that's upright and putting your pelvis in open, asymmetrical positions. Spend at least 30 minutes doing this one as well to give your baby a chance to move down. If you are lunging or stair or curb walking, you should lunge/walk/go up stairs in the direction that feels better to you. The davis with the lunge is that the toes of the higher leg and mom's belly button should be at right angles. Do not lunge over your knee, that closes the pelvis. Kenna Jones: Circuit Creator - www.[facility] twin citiescollective.c nancy Kaye, CD, BDT (NICHO), LCCE, FACCE: Supporting Content - www.[email or web address].Jumptap Meme Kaplan: Photography - www.[email or web address] Lana Cowanwey CD/CDT (BLAYNE): Print and Improvement Intern - www.Pixability.[employer] [place] Masterminds The Truffls www.Tasit.com SIGNS AND SYMPTOMS OF LABOR 1. Contractions every 10 minutes or more often 2. Clear, pink, or brownish fluid (water) leaking from vagina 3. Feeling that baby is pushing down, pressure 4. Low, dull backache 5. Cramps that feel like a period 6. Cramps with or without diarrhea If you notice any of the above symptoms, contact our office at [phone] and ask to speak with a nurse. After hours, you can call doctors registry at [phone] OR call [facility] at [phone] and ask to have the doctor social media content specialist paged. If you consider this an emergency, dial 9-1- or go to your nearest emergency department. NEED HELP? Are you dealing with a violent or abusive relationship? Are you a victim of rape or sexual assult? Call [facility] ([place]) 24 hour Crisis Hotline: 831.999.5264 or 701-808-4388. MANUAL Your Guide to a Healthy manual is now on-line. Visit [email or web address] to download your free copy documented in this encounter [facility] 01-17-2025 Note HNO ID: [id number] Author: SHANNEN SWIFT LPN Service: ? Author Type: LICENSED NURSE Type: Progress Notes Filed: 01/17/2025 08:40 Note Text: ANTIBIOTIC PERCUTANEOUS AND INTRADERMAL SKIN TESTING/ Mean Wheal AND Flare Diameter (mm) Patient has been identified by name and date of : Yes . Skin test applied by : Shannen Swift LPN Interpreted By: Gilbert Tao D.O. * Clinical significant reactions are regarded as a wheal diameter greater than or equal to 3 mm with a flare diameter greater or equal to 6mm. ALLERGENS Negative Control (50% glycerin/50% cocas for prick and HSA for intradermal) P: W = 0 mm F = 3 mm PENICILLIN GK 10,000 UNITS/ML NDC: 5939-9986-30 Exp: 04/07/2027 P: W = 0 mm F = 3 mm PREPEN -(benzylpenicilloyl polylysine) full strength NDC: 80684-401-18 Exp: 12/05/2025 P: W = 0 mm F = 3mm AMPICILLIN SODIUM 12.5mg/ml NDC: 2103-1377-35 Exp: 06/07/2027 P: W = 0 mm F = 3mm HISTAMINE- positive control (Histamine base 6mg/ml)for Prick and 0.1 mg/ml for intradermal P: W = 0 mm F = 3 mm [facility] 01-10-2025 Telephone encounter Note Rest and stay hydrated. No further advice [facility] Work Phone: 01-10-2025 Miscellaneous Notes Rest and stay hydrated. No further advice Patient is 30w6d. Patient was seen for allergy testing today. Notes from in office: Called to room, patient passed out in her chair, garbled speech. Assisted patient to the floor with Shannen Swift LPN. Elevated feet, vitals HR 74 BP 118/75 Pox 98.Patient given water. Beginning to speak more clearly within approx 5 min. Vitals HR 81 BP 105/74 Pox -see Epic notes. Patient denies any injury to abdomen or any other part of her body. Baby is active. Denies any bleeding, or loss of fluids, or CTX. Next appointment 01/30. Patient wondering if any concerns regarding baby. Patient reassured. She is to call/come in if baby is not active, loss of fluids, bleeding, development of CTX or PRN problems. Recommended patient push fluids. Call is any further advice documented in this encounter [facility] 01-10-2025 Telephone encounter Note Patient is 30w6d. Patient was seen for allergy testing today. Notes from in office: Called to room, patient passed out in her chair, garbled speech. Assisted patient to the floor with Shannen Swift LPN. Elevated feet, vitals HR 74 BP 118/75 Pox 98.Patient given water. Beginning to speak more clearly within approx 5 min. Vitals HR 81 BP 105/74 Pox -see Epic notes. Patient denies any injury to abdomen or any other part of her body. Baby is active. Denies any bleeding, or loss of fluids, or CTX. Next appointment 01/30. Patient wondering if any concerns regarding baby. Patient reassured. She is to call/come in if baby is not active, loss of fluids, bleeding, development of CTX or PRN problems. Recommended patient push fluids. Call is any further advice [facility] 01-10-2025 Note HNO ID: [id number] Author: GILBERT TAO, DO Service: ? Author Type: Physician Type: Progress Notes Filed: 01/10/2025 16:15 Note Text: Allergy and Immunology 01/10/2025 REFERRING PROVIDER: Meme Valero APRN.PROFESSOR OF COUNSELING Consultation requested for an allergy/immunology evaluation. My final impression and recommendations will be communicated back to the requesting physician by way of shared medical record, fax, or US mail. CHIEF COMPLAINT: drug allergy evaluation HISTORY OF PRESENT ILLNESS: Drug Reaction Index reaction date: in her early 20s Index reaction medication/dose#: unsure. She was being treated for frequent staph infections and had been given numerous different courses of antibiotics. Not sure of exact symptoms. Bactrim, doxy, amoxicillin, and clindamycin all listed. She recalls some causing hives and possible that amoxicillin caused diffuse hives and throat swelling. Denies tongue, lip, eye swelling. Denies respiratory, CV, or GI symptoms. No blistering or sloughing. No mucosal involvement. Unsure of what dose # Timing of symptom onset: cannot recall details History of narcolepsy, well controlled. No known needlephobia Did report recent onset of nasal congestion. Thought it was allergies at first on Tuesday, but then symptoms seemed to persist. No fever, cough, GI symptoms MYC COLLATERAL ALLERGY HISTORY Question 01/10/2025 12:54 PM EDT - Filed by Shannen Swift LPN Do you have or have you ever been diagnosed with allergic rhinitis? No Have you ever been skin tested for allergies? No Do you have asthma? No Do you have or have you ever been diagnosed with eczema or atopic dermatitis? No Do you get frequent sinus infections? No Do you have nasal polyps? No Do you have or have you ever been diagnosed with urticaria / hives? No Do you have or have you ever been diagnosed with angioedema? No Do you have or have you ever been diagnosed with food allergy? No Do you have or have you ever been diagnosed with stinging insect allergy (bee, wasp, yellow jacket, hornet)? No Are you allergic to Penicillin antibiotics? 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 PAST MEDICAL HISTORY Diagnosis Date Narcolepsy (HCC) FAMILY HISTORY Problem Relation Age of Onset Aneurysm Mother 45 AVMalformation other (brain tumor) Mother 44 Hemangioblastoma Hypertension Maternal Grandmother Hypertension Maternal Grandfather Diabetes Paternal Grandmother other (high cholesterol) Paternal Grandmother Diabetes Maternal Uncle type 1 Heart Maternal Uncle heart attack age 46 years PAST SURGICAL HISTORY Procedure Laterality Date PAST SURGICAL HISTORY OF abscess of groin drained when an infant PAST SURGICAL HISTORY OF 01/27/2018 right ankle, hardware removed from fracture of 2015 REPAIR OF ANKLE FRACTURE Right 05/2015 Current Outpatient Medications Medication Sig Iygwbeya-Cr-Jzx-Fe-FA tab Take 1 tablet by mouth once daily. With DHA and folic acid as covered by insurance. Breast Pump Use as directed No current facility-administered medications for this visit. ALLERGIES Allergen Reactions Amoxicillin Hives Pt reported throat swelling Bactrim [Sulfametho* Hives Cats Other: See Comments Sneezing, itchy eyes, cough Clindamycin Hives Dogs Other: See Comments Sneezing, itchy eyes, cough Doxycycline Unknown Seasonal Allergies Other: See Comments Sneezing, itchy eyes PHYSICAL EXAM: BP 105/68 Pulse 79 Resp 16 Wt 89.7 kg (197 lb 12.8 oz) LMP 06/08/2024 SpO2 97% BMI 28.80 kg/m? GENERAL: alert, oriented, cooperative with exam HEAD: atraumatic, normocephalic EYES: conjunctivae normal, extraocular movements in tact, pupils equal, round, and reactive, EARS: external ears normal, NOSE: nares patent MOUTH: mucus membranes moist, oropharynx clear without erythema CV: heart sounds normal, regular rate and rhythm, cap refill normal CHEST/LUNGS: respirations easy and regular, good air entry bilaterally, clear to auscultation with no adventitious sounds SKIN: warm, well perfused, no rashes + DATA/DIAGNOSTICS: I personally reviewed and interpreted relevant prior results, notable as below: Allergen Skin Testing 01/10/2025 I personally reviewed this patient's testing and interpreted it as follows: Penicillin, pre-pen, and ampicillin skin prick tests placed, however unable to interpret as histamine control was blunted Attempted intradermal testing, however after placement of saline control by nurse, patient said she did not feel well, she became pale and lost consci (more content not included)... [facility] 01-10-2025 History of Presen t illness Narrative Images from the original note were not included. Allergy and Immunology 01/10/2025 REFERRING PROVIDER: Meme Valero APRN.PROFESSOR OF COUNSELING Consultation requested for an allergy/immunology evaluation. My final impression and recommendations will be communicated back to the requesting physician by way of shared medical record, fax, or US mail. CHIEF COMPLAINT: drug allergy evaluation HISTORY OF PRESENT ILLNESS: Drug Reaction Index reaction date: in her early 20s Index reaction medication/dose#: unsure. She was being treated for frequent staph infections and had been given numerous different courses of antibiotics. Not sure of exact symptoms. Bactrim, doxy, amoxicillin, and clindamycin all listed. She recalls some causing hives and possible that amoxicillin caused diffuse hives and throat swelling. Denies tongue, lip, eye swelling. Denies respiratory, CV, or GI symptoms. No blistering or sloughing. No mucosal involvement. Unsure of what dose # Timing of symptom onset: cannot recall details History of narcolepsy, well controlled. No known needlephobia Did report recent onset of nasal congestion. Thought it was allergies at first on Tuesday, but then symptoms seemed to persist. No fever, cough, GI symptoms MYC COLLATERAL ALLERGY HISTORY Question 01/10/2025 12:54 PM EDT - Filed by Shannen Swift LPN Do you have or have you ever been diagnosed with allergic rhinitis? No Have you ever been skin tested for allergies? No Do you have asthma? No Do you have or have you ever been diagnosed with eczema or atopic dermatitis? No Do you get frequent sinus infections? No Do you have nasal polyps? No Do you have or have you ever been diagnosed with urticaria / hives? No Do you have or have you ever been diagnosed with angioedema? No Do you have or have you ever been diagnosed with food allergy? No Do you have or have you ever been diagnosed with stinging insect allergy (bee, wasp, yellow jacket, hornet)? No Are you allergic to Penicillin antibiotics? 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 PAST MEDICAL HISTORY Diagnosis Date Narcolepsy (HCC) FAMILY HISTORY Problem Relation Age of Onset Aneurysm Mother 45 AVMalformation other (brain tumor) Mother 44 Hemangioblastoma Hypertension Maternal Grandmother Hypertension Maternal Grandfather Diabetes Paternal Grandmother other (high cholesterol) Paternal Grandmother Diabetes Maternal Uncle type 1 Heart Maternal Uncle heart attack age 46 years PAST SURGICAL HISTORY Procedure Laterality Date PAST SURGICAL HISTORY OF abscess of groin drained when an infant PAST SURGICAL HISTORY OF 01/27/2018 right ankle, hardware removed from fracture of 2015 REPAIR OF ANKLE FRACTURE Right 05/2015 Current Outpatient Medications Medication Sig Jnyvcngm-Gv-Wja-Fe-FA tab Take 1 tablet by mouth once daily. With DHA and folic acid as covered by insurance. Breast Pump Use as directed No current facility-administered medications for this visit. ALLERGIES Allergen Reactions Amoxicillin Hives Pt reported throat swelling Bactrim [Sulfametho* Hives Cats Other: See Comments Sneezing, itchy eyes, cough Clindamycin Hives Dogs Other: See Comments Sneezing, itchy eyes, cough Doxycycline Unknown Seasonal Allergies Other: See Comments Sneezing, itchy eyes PHYSICAL EXAM: BP 105/68 Pulse 79 Resp 16 Wt 89.7 kg (197 lb 12.8 oz) LMP 06/08/2024 SpO2 97% BMI 28.80 kg/m GENERAL: alert, oriented, cooperative with exam HEAD: atraumatic, normocephalic EYES: conjunctivae normal, extraocular movements in tact, pupils equal, round, and reactive, EARS: external ears normal, NOSE: nares patent MOUTH: mucus membranes moist, oropharynx clear without erythema CV: heart sounds normal, regular rate and rhythm, cap refill normal CHEST/LUNGS: respirations easy and regular, good air entry bilaterally, clear to auscultation with no adventitious sounds SKIN: warm, well perfused, no rashes + DATA/DIAGNOSTICS: I personally reviewed and interpreted relevant prior results, notable as below: Allergen Skin Testing 01/10/2025 I personally reviewed this patient's testing and interpreted it as follows: Penicillin, pre-pen, and ampicillin skin prick tests placed, however unable to interpret as histamine control was blunted Attempted intradermal testing, however after placement of saline control by nurse, patient said she did not feel well, she became pale and lost consciousness briefly. When I came to the room, she was diaphoretic. The room was notable warm. 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 Retrospectively, she reported reported tunnel vision prior to fainting. See nurse notes for details - vitals remained stable throughout. Her mental state improved with supine positioning and legs raised. After ~15-20 minutes, she felt nauseous again and vomited. Subsequently felt much better and left in her baseline health. We did not proceed with intradermal testing or challenge. MEDICAL DECISION MAKIN. Adverse effect of penicillin, sequela (Primary) Index reaction: ~ 5 years ago, diffuse hives and throat swelling Skin testing was not able to be interpreted. Percutaneous histamine control was blunted Intradermal testing was not able to be completed due to vasovagal syncope Recommend return in the future for repeat testing 2. Vasovagal syncope See above for symptoms consistent with vasovagal symptom in the setting of 3. with 30 completed weeks gestation (HCC) - follows with OB - I will notify primary provider. Clindamycin is a common alternative to penicillins for treatment of GBS, but this is also listed as an allergy and we do not have clarifying details Follow up: for repeat drug evaluation. We did discuss direct drug challenges to clarify doxy, clindamycin, and bactrim in the future after Patient advised to call or return sooner should current symptoms worsen or fail to improve or if new symptoms or problems arise. It was my pleasure to participate in the care of this patient. Gilbert Tao DO Allergy and Clinical Immunology [facility] Bhargavi Quintanilla spent a total of 47 minutes on the date of the service which included preparing to see the patient, [id number] patient care, completing clinical documentation, obtaining and/or reviewing separately obtained history, performing a medically appropriate examination, counseling and educating the patient/family/caregiver, and ordering medications, tests, or procedures. Recording using eXpresso software for draft documentation of the visit was discussed with the patient/authorized loss prevention representative; all questions welcomed and answered. Patient/authorized loss prevention representative agreed to proceed Called to room, patient passed out in her chair, garbled speech. Assisted patient to the floor with Shannen Swift LPN. Elevated feet, vitals HR 74 BP 118/75 Pox 98.Patient given water. Beginning to speak more clearly within approx 5 min. Vitals HR 81 BP 105/74 Pox Patients OB referred patient to have penicillin testing. Patient had a hives and throat swelling when taking multiple antibiotics. Patient unsure which medication specifically caused the reaction. documented in this encounter [facility] 01-10-2025 Note HNO ID: [id number] Author: TARA LISA, RN Service: ? Author Type: Registered Nurse Type: Progress Notes Filed: 01/10/2025 16:15 Note Text: Called to room, patient passed out in her chair, garbled speech. Assisted patient to the floor with Shannen Swift LPN. Elevated feet, vitals HR 74 BP 118/75 Pox 98.Patient given water. Beginning to speak more clearly within approx 5 min. Vitals HR 81 BP 105/74 Pox [facility] 01-10-2025 Note HNO ID: [id number] Author: SHANNEN SWIFT LPN Service: ? Author Type: LICENSED NURSE Type: Progress Notes Filed: 01/10/2025 16:15 Note Text: Patients OB referred patient to have penicillin testing. Patient had a hives and throat swelling when taking multiple antibiotics. Patient unsure which medication specifically caused the reaction. [facility] 01-08-2025 Progress note Formatting of t his note might be different from the original. YVON-S: Tiffanie Mercado is a 29 year old female who presents at 30w4d with MARTI:03/15/2025, by Last Menstrual Period for a routine visit. Denies headache, visual changes, chest pain, shortness of breath, vaginal bleeding, leakage of fluid, or dysuria. Feeling well, no complaints. O: See flow sheet Gen: No apparent distress Abd: Gravid, nontender ASSESSMENT/PLAN: 1. Encounter for supervision of normal first in third trimester 2. 30 weeks gestation of -Breast pump order given today 3. Penicillin allergy -PCN allergy consult appointment coming up on 01/10. PTL precautions reviewed and when to call RTO in 2 weeks Regina Sales APRN.CNM [facility] 01-08-2025 Miscellaneous Notes YVON-S: Tiffanie Mercado is a 29 year old female who presents at 30w4d with MARTI:03/15/2025, by Last Menstrual Period for a routine visit. Denies headache, visual changes, chest pain, shortness of breath, vaginal bleeding, leakage of fluid, or dysuria. Feeling well, no complaints. O: See flow sheet Gen: No apparent distress Abd: Gravid, nontender ASSESSMENT/PLAN: 1. Encounter for supervision of normal first in third trimester 2. 30 weeks gestation of -Breast pump order given today 3. Penicillin allergy -PCN allergy consult appointment coming up on 01/10. PTL precautions reviewed and when to call RTO in 2 weeks Regina Sales APRN.CNM documented in this encounter [facility] 01-08-2025 Instructions Regina Sales APRN.CNM - 01/08/2025 1:04 PM EDT Images from the original note were not included. COUNTING YOUR BABY'S MOVEMENTS Your Baby's regular movements are a sign of good health. Though babies may sleep for up to an hour, most of the time your baby is active and moving. On average, a healthy baby kicks or moves at least 10 times within a two-hour period. An easy way to check the health of your baby is to keep track of your baby's movements once a day (we call it kick counts). We think it is best to begin kick counts at 28 weeks of and continue once a day until your baby's . Please follow the directions below and record your baby's movements every day. Bring this Kick Count Record with you to all of your visits. How to count and record your baby's movements: Pick a time once a day to record your baby's movements. Your baby may be most active when you are at rest. Many women find after a meal to be the best time to record their baby's movements. Sit in a comfortable position and place your hands, palms down, on your baby. When you are ready to begin counting, look at the time. Ranjith the start time on the Kick Count Record. Count each time you feel your baby kick, move, roll, flutter, or swish. Continue counting until your baby has moved ten times. Ranjith the end time on the Kick Count Record. How many minutes did it take your baby to move ten times? Record this number in the box. If you do not count ten movements in two hours or less, call your health care provider right away for further instructions Start Start Start End End End Minutes to reach 10 kicks Minutes to reach 10 kicks Minutes to reach 10 kicks What is my perineum? Your perineum is the area between your vaginal opening and your rectum. This area stretches when you give , and sometimes the perineum or vagina will tear as your baby is being born. If your health care provider cuts an episiotomy during your , it is this area that is cut. You may need stitches after your baby is born if you have a tear or have an episiotomy. How often do perineal tears occur? About 4 to 8 out of every 10 women who give vaginally will have some tear in their perineum. About two?thirds of these women will need some stitches. Is an episiotomy necessary? An episiotomy is not necessary for most women. Although they were common before the , they are rarely done today. However, sometimes your health care provider may recommend an episiotomy just as your baby is being born. For example, an episiotomy can help if your baby needs to be born very quickly. You can ask your health care provider to talk with you about episiotomy during a visit. Can my health care provider do anything to help me avoid a tear? There are many ways that your health care provider can help to reduce your chance of tearing. For example, your provider may: Apply a warm compress to the perineum just before the baby comes out Recommend specific positions for you to be in as you push Provide gentle downward pressure on the baby's head as your baby is coming out Ask that you push your baby out between contractions Avoid the use of forceps or a vacuum to help your baby be born Can I do anything before the to help me avoid a tear? Preventing a perineal tear that occurs during has been the subject of many research studies. Several studies have found that perineal massage during the last weeks of can reduce tearing at for women giving for the first time. This massage--using 2 fingers to stretch your perineal tissues--is performed by you, in your home, once or twice a week, for the last 4 to 6 weeks of your . The next page of this handout tells how to do this massage. For every 15 women who do perineal massage, one woman will avoid an episiotomy and perineal tearing that needs stitches. While you massage, you can practice relaxing the muscles in your perineum. This can help you prepare for the stretching, burning feeling you may have when your baby's head is born. Relaxing this area during can help prevent tearing. Does perineal massage in help all women? Massage seems to work better for some women than others. Women having their first baby, women who are 30 years or older, and women who have had episiotomies before have fewer tears and less severe tears when perineal massage is done during the last weeks of . Can my partner help? Yes! Many women find that it is easier to have their partners do this massage. See the instructions for perineal massage on the next page for more information. Are there any risks to perineal massage during ? Not that we know of. It is free. It doesn't hurt. It is easy to do. And most women don't mind doing it. However, you should not stretch the perineum until it hurts or massage too often, which can hurt the skin in that area. Do not do perineal massage more than once or twice a week. Women who do it more often do not have a lower risk of perineal tearing. Check with your health care provider before beginning perineal massage. And, if you believe your amniotic fluid (bag of walters) is leaking, check with your health care provider before putting anything in your vagina. Instructions for Perineal Massage During Wash your hands well, and make sure your fingernails are short. Relax in a private place where you can rest with your legs open and your knees bent. Some women like to lean on pillows for back support. Lubricate your thumbs and the perineal tissues. Use a lubricant such as vitamin E oil, coconut oil, almond oil, or any vegetable oil used for cooking--like olive oil. You may also try a water?soluble jelly, such as K?Y jelly, or your body's natural vaginal lubricant. Do not use baby oil, mineral oil, or petroleum jelly (Vaseline). Place your thumbs about 1 to 1.5 inches inside your vagina (see Figure 1). Press down (toward the anus) and to the sides until you feel a slight burning, stretching sensation. Hold that stretched position for 1 or 2 minutes. With your thumbs, slowly massage the lower half of the vagina using a U?shaped movement for 2 to 3 minutes at most. Concentrate on relaxing your muscles. This is a good time to practice slow, deep breathing techniques. Partners: If your partner is doing the perineal massage, follow the same basic instructions above. However, your partner should use his or her index fingers to do the massage (instead of thumbs). The same side?to?side, U?shaped, downward pressure method should be used. Good communication is important--be sure to tell your partner if you have too much pain or burning! Figure 1 1 Perineal Massage Lexy Grade Level: 7.2 Approved August 2015. This handout replaces Perineal Massage in published in Volume 50, Issue 1, Aug/Sep 2004 SIGNS AND SYMPTOMS OF LABOR 1. Contractions every 10 minutes or more often 2. Clear, pink, or brownish fluid (water) leaking from vagina 3. Feeling that baby is pushing down, pressure 4. Low, dull backache 5. Cramps that feel like a period 6. Cramps with or without diarrhea If you notice any of the above symptoms, contact our office at [phone] and ask to speak with a nurse. After hours, you can call doctors registry at [phone] OR call [facility] at [phone] and ask to have the doctor social media content specialist paged. If you consider this an emergency, dial 9-1-1 or go to your nearest emergency department. NEED HELP? Are you dealing with a violent or abusive relationship? Are you a victim of rape or sexual assult? Call [facility] ([facility] 24 hour Crisis Hotline: 460.526.8113 or 172-558-4122. MANUAL Your Guide to a Healthy manual is now on-line. Visit [email or web address] to download your free copy documented in this encounter [facility] 12-24-2024 Progress note Formatting of t his note might be different from the original. YVON-S: Tiffanie Mercado is a 29 year old female who presents at 28w3d with MARTI:03/15/2025, by Last Menstrual Period for a routine visit. Denies headache, visual changes, chest pain, shortness of breath, vaginal bleeding, leakage of fluid, or dysuria. Feeling well, no complaints. O: See flow sheet Gen: No apparent distress Abd: Gravid, nontender ASSESSMENT/PLAN: 1. Encounter for supervision of normal first in second trimester 2. 28 weeks gestation of - CBC, and RPR today. Tool ate for glucose testing today, will complete this week - O Positive - TDAP declines - LARC form reviewed and signed, declines - Depression screen negative - Opioid screen negative - plan form discussed and given to patient. Patient desires unmedicated and waterbirth - PTL precautions and kick counts reviewed - RTO- 2 weeks or sooner if needed Regina Sales APRN.CNM [facility] 12-24-2024 Miscellaneous Notes YVON-S: Tiffanie Mercado is a 29 year old female who presents at 28w3d with MARTI:03/15/2025, by Last Menstrual Period for a routine visit. Denies headache, visual changes, chest pain, shortness of breath, vaginal bleeding, leakage of fluid, or dysuria. Feeling well, no complaints. O: See flow sheet Gen: No apparent distress Abd: Gravid, nontender ASSESSMENT/PLAN: 1. Encounter for supervision of normal first in second trimester 2. 28 weeks gestation of - CBC, and RPR today. Tool ate for glucose testing today, will complete this week - O Positive - TDAP declines - LARC form reviewed and signed, declines - Depression screen negative - Opioid screen negative - plan form discussed and given to patient. Patient desires unmedicated and waterbirth - PTL precautions and kick counts reviewed - RTO- 2 weeks or sooner if needed Regina Sales APRN.CNM documented in this encounter [facility] 12-24-2024 Instructions Casimiro Gil MA - 12/24/2024 4:31 PM EDT SEQUENTIAL SCREENINGS The [facility] offers sequential screenings for women who are interested in screenings for chromosomal abnormalities and certain defects during a . The sequential screen combines ultrasound and blood tests to determine the risk of chromosomal abnormalities, including Down's Syndrome (Trisomy 21) and Trisomy 18, as well as open neural tube defects including spina bifida. Ultrasound examination is performed between 11 weeks and 13 weeks gestational age. Blood tests are drawn after the ultrasound and again later in the between 15 and 21 weeks gestational age. Please let your physician know if you are interested in this testing. It will require an appointment with our support technician. This is not an ultrasound performed by a physician in our office during a routine visit. SIGNS AND SYMPTOMS OF LABOR 1. Contractions every 10 minutes or more often 2. Clear, pink, or brownish fluid (water) leaking from vagina 3. Feeling that baby is pushing down, pressure 4. Low, dull backache 5. Cramps that feel like a period 6. Cramps with or without diarrhea If you notice any of the above symptoms, contact our office at [phone] and ask to speak with a nurse. After hours, you can call doctors registry at [phone] OR call [facility] at [phone] and ask to have the doctor social media content specialist paged. If you consider this an emergency, dial or go to your nearest emergency department. NEED HELP? Are you dealing with a violent or abusive relationship? Are you a victim of rape or sexual assult? Call [facility] ([place]) 24 hour Crisis Hotline: 324.867.2409 or 128-989-9941. MANUAL Your Guide to a Healthy manual is now on-line. Visit [email or web address] to download your free copy documented in this encounter [facility] 11-27-2024 Progress note Formatting of t his note might be different from the original. Anatomy ultrasound reviewed. No abnormalities identified. Follow up as clinically indicated. Please place copy in ob chart. Mimi Gotti MD [facility] 11-27-2024 Miscellaneous Notes Anatomy ultrasound reviewed. No abnormalities identified. Follow up as clinically indicated. Please place copy in ob chart. Mimi Gotti MD documented in this encounter [facility] 11-26-2024 Note Indication Follow-up evaluation to complete anatomic survey Impression The patient is referred for completion of the anatomic survey. - Single, live, intrauterine . - No malformations were visualized on a follow-up anatomic survey. - Anatomic survey was completed today. - The EFW is 791 g, at the 77%. AC is at the 81%. - The amniotic fluid volume is normal amount. - The placenta is anterior, fundal. - Not all structural malformations can be detected by ultrasound examination. Recommendations Additional follow-up as clinically indicated. Maternal Assessment Height 175 cm Height (ft) 5 ft Height (in) 9 in Physical Exam Initial weight (lb) 175 lb Initial BMI 25.84 kg/m Maternal assessment other: 1 Para 0 REMOTE READ Method Transabdominal ultrasound examination. View: Adequate visualization Finn . Number of fetuses: 1 Dating LMP on: 06/08/2024 GA by LMP 24 w + 3 d MARTI by LMP: 03/15/2025 GA by prior assessment 24 w + 3 d MARTI by prior assessment: 03/15/2025 Ultrasound examination on: 11/26/2024 GA by U/S based upon: AC, BPD, Femur, HC GA by U/S 25 w + 2 d MARTI by U/S: 03/09/2025 Assigned: based on stated MARTI, selected on 11/26/2024 Assigned GA 24 w + 3 d Assigned MARTI: 03/15/2025 General Evaluation Cardiac activity present. FHR 136 bpm. movements: present. Presentation: cephalic Placenta: Placental site: anterior, fundal Umbilical cord: Cord vessels: 3 vessel cord Amniotic fluid: Amount of AF: normal amount. MVP 4.6 cm. ALEXANDER 11.9 cm. Q1 2.5 cm, Q2 4.6 cm, Q3 3.2 cm, Q4 1.6 cm Growth Overview Exam date GA BPD (mm) HC (mm) AC (mm) FL (mm) HL (mm) EFW (g) 10/29/2024 20w 3d 47.7 49% 185.4 64% 164.1 77% 33 60% 32.9 75% 387 71% 11/26/2024 24w 3d 62.4 74% 239.9 83% 212.3 81% 43.4 58% 791 77% Biometry Standard BPD 62.4 mm 25w 2d 74% Hadlock OFD 86.4 mm 25w 6d 97% Nicolaides HC 239.9 mm 25w 6d 83% Winter AC 212.3 mm 25w 5d 81% Hadlock Femur 43.4 mm 24w 3d 58% Winter EFW 791 g 25w 0d 77% Hadlock EFW (lb) 1 lb EFW (oz) 12 oz EFW by: Hadlock (HC-AC-FL) Extended Mural Artist 8.2 mm Extremities / Bony Struc FL / HC 0.18 Other Structures FHR 136 bpm Anatomy Lateral ventricles: normal Cavum septi pellucidi: normal Cerebellum: normal Cisterna magna: normal 4-chamber view: normal RVOT view: normal LVOT view: normal 3-vessel view: normal Heart / Thorax Situs: situs solitus (normal) Diaphragm: normal Stomach: normal Kidneys: normal Bladder: normal Cervical spine: normal Thoracic spine: normal Lumbar spine: normal Sacral spine: normal Gender: Unspecified Wants to know sex: no Performed By: Poonam Harrington, GIANLUCA, RVT Read By: Renetta Flowers M.D. [facility] 11-26-2024 Note HNO ID: [id number] Author: MEME VALERO APRN.PROFESSOR OF COUNSELING Service: ? Author Type: Nurse Practitioner Type: Progress Notes Filed: 11/26/2024 15:57 Note Text: EH - S: Hilario is a 29 year old female who presents at 24w3d for a routine visit. Feeling movement. Denies headache, visual changes, chest pain, shortness of breath, vaginal bleeding, leakage of fluid, or dysuria. Feeling well, no complaints. O: See flow sheet Gen: No apparent distress Abd: Gravid, nontender ASSESSMENT/PLAN: 1. Encounter for supervision of normal first in second trimester ([facility]) - ICD9: V22.0, ICD10: Z34.02 (primary diagnosis) - Continue PNV - Hoping for tub labor/delivery 2. 24 weeks gestation of ([facility]) - ICD9: V22.2, ICD10: Z3A.24 - GTT, CBC, RPR next visit - Follow up anatomy today, report pending - Planning to breast feed, discussed pumps - Planning birthing classes at [facility] - Discussed pediatricians 3. Allergy to amoxicillin - ICD9: V14.0, ICD10: Z88.0 - CONSULT TO [facility] PTL precautions reviewed. RTO in 4 weeks or sooner as needed. Meme Valero APRN.PROFESSOR OF COUNSELING [facility] 11-26-2024 History of Presen t illness Narrative EH - S: Hilario is a 29 year old female who presents at 24w3d for a routine visit. Feeling movement. Denies headache, visual changes, chest pain, shortness of breath, vaginal bleeding, leakage of fluid, or dysuria. Feeling well, no complaints. O: See flow sheet Gen: No apparent distress Abd: Gravid, nontender ASSESSMENT/PLAN: 1. Encounter for supervision of normal first in second trimester ([facility]) - ICD9: V22.0, ICD10: Z34.02 (primary diagnosis) - Continue PNV - Hoping for tub labor/delivery 2. 24 weeks gestation of ([facility]) - ICD9: V22.2, ICD10: Z3A.24 - GTT, CBC, RPR next visit - Follow up anatomy today, report pending - Planning to breast feed, discussed pumps - Planning birthing classes at [facility] - Discussed pediatricians 3. Allergy to amoxicillin - ICD9: V14.0, ICD10: Z88.0 - CONSULT TO [facility] PTL precautions reviewed. RTO in 4 weeks or sooner as needed. Meme Valero APRN.CNP documented in this encounter [facility] 11-26-2024 Instructions Meme Valero APRN.CNP - 11/26/2024 3:39 PM EDT Childbirth Education at the [facility] Childbirth Preparation Class You and your support person will be introduced to all childbirth options available to you for labor and delivery. Class topics include: Relaxation and breathing techniques Role of your support person Labor-coping options such as positioning and ambulation, continuous support, hydrotherapy, IV pain medication, nitrous oxide, and epidurals Discussion about the delivery experience: Vaginal and section Post- care Basics of bringing home your new baby & what to expect Just Breathe The Just Breathe Course is encouraged for anyone interested in learning more about managing the discomforts associated with labor and . It is perfect for the woman that desires a lower intervention experience, a woman wanting a refresher course after already having a previous child, a woman wanting to learn more ways her support person can be involved in the labor process, or just a first-time mother looking for the best labor experience possible. This class truly would be a benefit for families but HURRY, class sizes are kept small, and they could fill up quickly. This class is taught by an experienced Registered Nurse that works in the [facility] and has specialized training in supporting women during low intervention labor and . Topics that will be taught during the class: Setting the stage for maximum comfort during your labor Creation of a Preferences Worksheet How to use comfort measures to manage pain in labor A review of natural methods available How your support person can be an active participant in the labor and delivery process If you take all of the Childbirth classes offered at [facility] the cost is $80 If taken Separately, the costs are: The childbirth Class is $55 The Class is $25 Just Breathe is $35 Class Who wouldn t want their experience with their to be memorable? We can help. Taught by a certified trial consultant, our class covers the basics of , as well as where to get help if you need it. class $25 if taken alone. Tour the [facility] s Women s Prakash is committed to making the of your child the most memorable day of your life. For more information about the childbirth education classes, tours, or services we offer, call . SEQUENTIAL SCREENINGS The [facility] offers sequential screenings for women who are interested in screenings for chromosomal abnormalities and certain defects during a . The sequential screen combines ultrasound and blood tests to determine the risk of chromosomal abnormalities, including Down's Syndrome (Trisomy 21) and Trisomy 18, as well as open neural tube defects including spina bifida. Ultrasound examination is performed between 11 weeks and 13 weeks gestational age. Blood tests are drawn after the ultrasound and again later in the between 15 and 21 weeks gestational age. Please let your physician know if you are interested in this testing. It will require an appointment with our support technician. This is not an ultrasound performed by a physician in our office during a routine visit. SIGNS AND SYMPTOMS OF LABOR 1. Contractions every 10 minutes or more often 2. Clear, pink, or brownish fluid (water) leaking from vagina 3. Feeling that baby is pushing down, pressure 4. Low, dull backache 5. Cramps that feel like a period 6. Cramps with or without diarrhea If you notice any of the above symptoms, contact our office at [phone] and ask to speak with a nurse. After hours, you can call doctors registry at [phone] OR call [facility] at [phone] and ask to have the doctor social media content specialist paged. If you consider this an emergency, dial 9--1 or go to your nearest emergency department. NEED HELP? Are you dealing with a violent or abusive relationship? Are you a victim of rape or sexual assult? Call [facility] ([place]) 24 hour Crisis Hotline: 335.343.3663 or 829-140-7755. MANUAL Your Guide to a Healthy manual is now on-line. Visit [email or web address] to download your free copy documented in this encounter [facility] 10-29-2024 Progress note Formatting of t his note might be different from the original. RR- VB No. LOF No. CTXS No. Movement: present. Other c/o: No. Medication list reviewed. SENSITIVE EXAM: Sensitive exam not performed. Physical Exam See Flow Sheet Abd: soft, nontender, gravid Ext: edema: no A/P 20w3d Estimated Date of Delivery: 03/15/25 Assessment & Plan Encounter for care in second trimester of first 20 weeks gestation of declines Asa prophylaxis cont. PNV f/u in 4 weeks or prn f/u US ordered, couldn't get all views today had throat edema w/ amoxicillin in past, went to ED for treatment, d/w her implications if needs gbs prophylaxis Mimi Gotti M.D. [facility] 10-29-2024 Miscellaneous Notes RR- VB No. LOF No. CTXS No. Movement: present. Other c/o: No. Medication list reviewed. SENSITIVE EXAM: Sensitive exam not performed. Physical Exam See Flow Sheet Abd: soft, nontender, gravid Ext: edema: no A/P 20w3d Estimated Date of Delivery: 03/15/25 Assessment & Plan Encounter for care in second trimester of first 20 weeks gestation of declines Asa prophylaxis cont. PNV f/u in 4 weeks or prn f/u US ordered, couldn't get all views today had throat edema w/ amoxicillin in past, went to ED for treatment, d/w her implications if needs gbs prophylaxis Mimi Gotti M.D. documented in this encounter [facility] 10-29-2024 Instructions Mindy Cardona MA - 10/29/2024 3:30 PM EDT SEQUENTIAL SCREENINGS The [facility] offers sequential screenings for women who are interested in screenings for chromosomal abnormalities and certain defects during a . The sequential screen combines ultrasound and blood tests to determine the risk of chromosomal abnormalities, including Down's Syndrome (Trisomy 21) and Trisomy 18, as well as open neural tube defects including spina bifida. Ultrasound examination is performed between 11 weeks and 13 weeks gestational age. Blood tests are drawn after the ultrasound and again later in the between 15 and 21 weeks gestational age. Please let your physician know if you are interested in this testing. It will require an appointment with our support technician. This is not an ultrasound performed by a physician in our office during a routine visit. SIGNS AND SYMPTOMS OF LABOR 1. Contractions every 10 minutes or more often 2. Clear, pink, or brownish fluid (water) leaking from vagina 3. Feeling that baby is pushing down, pressure 4. Low, dull backache 5. Cramps that feel like a period 6. Cramps with or without diarrhea If you notice any of the above symptoms, contact our office at [phone] and ask to speak with a nurse. After hours, you can call doctors registry at [phone] OR call [facility] at [phone] and ask to have the doctor social media content specialist paged. If you consider this an emergency, dial 6-5-2 or go to your nearest emergency department. NEED HELP? Are you dealing with a violent or abusive relationship? Are you a victim of rape or sexual assult? Call [facility] ([facility] 24 hour Crisis Hotline: 593.478.3931 or 107-336-4487. MANUAL Your Guide to a Healthy manual is now on-line. Visit [email or web address] to download your free copy documented in this encounter [facility] 10-02-2024 Progress note Formatting of t his note might be different from the original. KJ - VB No. LOF No. CTXS No. Movement: absent. Other c/o: No. Medication list reviewed. Physical Exam See Flow Sheet Gen: no accute distress, well appearing Abd: soft, nontender, gravid A/P 16w4d Estimated Date of Delivery: 03/15/25 Anatomy US ordered. Discussed rationale for aspirin and patient considering it. Sarath Hale MD [facility] 10-02-2024 Miscellaneous Notes KJ - VB No. LOF No. CTXS No. Movement: absent. Other c/o: No. Medication list reviewed. Physical Exam See Flow Sheet Gen: no accute distress, well appearing Abd: soft, nontender, gravid A/P 16w4d Estimated Date of Delivery: 03/15/25 Anatomy US ordered. Discussed rationale for aspirin and patient considering it. Sarath Hale MD documented in this encounter [facility] 10-02-2024 Instructions Mindy Cardona MA - 10/02/2024 3:42 PM EST SEQUENTIAL SCREENINGS The [facility] offers sequential screenings for women who are interested in screenings for chromosomal abnormalities and certain defects during a . The sequential screen combines ultrasound and blood tests to determine the risk of chromosomal abnormalities, including Down's Syndrome (Trisomy 21) and Trisomy 18, as well as open neural tube defects including spina bifida. Ultrasound examination is performed between 11 weeks and 13 weeks gestational age. Blood tests are drawn after the ultrasound and again later in the between 15 and 21 weeks gestational age. Please let your physician know if you are interested in this testing. It will require an appointment with our support technician. This is not an ultrasound performed by a physician in our office during a routine visit. SIGNS AND SYMPTOMS OF LABOR 1. Contractions every 10 minutes or more often 2. Clear, pink, or brownish fluid (water) leaking from vagina 3. Feeling that baby is pushing down, pressure 4. Low, dull backache 5. Cramps that feel like a period 6. Cramps with or without diarrhea If you notice any of the above symptoms, contact our office at [phone] and ask to speak with a nurse. After hours, you can call [facility] at [phone] OR call [facility] at [phone] and ask to have the doctor social media content specialist paged. If you consider this an emergency, dial or go to your nearest emergency department. NEED HELP? Are you dealing with a violent or abusive relationship? Are you a victim of rape or sexual assult? Call [facility] ([place]) 24 hour Crisis Hotline: 954.533.9993 or 309-626-6148. MANUAL Your Guide to a Healthy manual is now on-line. Visit [email or web address] to download your free copy documented in this encounter [facility] 09-05-2024 History of Presen t illness Narrative This WASTE RECYCLER verified patient name and date of . Tiffanie Mercado is a 29 y.o. female who comes in for follow up regarding narcolepsy that was diagnosed in 2016. She had been taking adderall XR 15 mg but stopped when trying to get . She had also tried xywave but after the first dose she became anxious about how it made her feel and she stopped. She has not been on any medications for at least 9 months and is now 13 weeks . She was able to continue to work and just added in naps. She sleeps 9:30pm to 7:10am. However due to her she wakes at least 5 times a night. She is napping for about an hour a day now that she has been in her first trimester. She has had no episodes of sleep paralysis in the past year. She has had no sleep hallucinations. She denies any cataplexy for the past 4 years. If she is sleepy at all she does not drive. She has utilized scheduled naps prior to drives which has allowed her to drive and stay fully alert. If she ever notes she is not fully alert and will need to drive, she will use a prophylactic nap prior to driving. She denies any difficulty staying alert while driving. She denies sleep attacks. Her sleep fragmentation has improved since decreasing her caffeine intake. 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 She has restarted working out now that she is entering the the second trimester. She notes she has been doing fairly well with her trial off of medication while supplementing with short naps. 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 She reported weakness of her lower extremities with laughter that occur about once every couple of weeks. 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 She had no history of asthma prior to this. She was subsequently changed to adderall XR with improved symptoms. 08/26/2020 1:00 PM 02/24/2021 10:00 AM 07/28/2021 10:43 AM 09/08/2022 12:00 PM 04/11/2023 9:39 AM 10/30/2023 9:13 AM 09/01/2024 8:24 AM Sleep Medicine Patient Reported Outcomes ESS 15 15 14 14 ESS (manually scored) 12 14 16 FOSQ 18.5 17 16 15 FOSQ (manually scored) 18 18.5 13.5 Past Medical History She has a past medical history of Asthma (April 2016) and Narcolepsy. Past Social History She reports that she has never smoked. She has never used smokeless tobacco. She reports current alcohol use. She reports that she does not use drugs. caffeinated drinks/day: 2 caffeine Allergies She is allergic to amoxicillin, clindamycin, dog [*animal dander], seasonal, and sulfamethoxazole-trimethoprim. Medications She has a current medication list which includes the following prescription(s): pnv plus multivit+dha and amphetamine-dextroamphetamine xr. Review of Systems A complete review of systems was negative except that noted in HPI She denies any shortness of breath or wheezing. 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 AT this point she is doing relatively ok off of the medications and able to function at work. She is utilizing scheduled naps. I would like her to discuss with her OBGYN the use of as needed adderall if she needs to stay alert to be safe as in a long drive. After she has delivered will discuss restarting ladarius adderall versus other options for maintaining alertness. While modafinil and armodafinil are not options she may be a candidate for pitolisant or solriamfetol. She is aware that she should NEVER drive if drowsy and will continue to use naps and if needed caffeine. However, the latter needs to be balanced with the fact that she is . Will see her after she delivers her baby. documented in this encounter [facility] 09-04-2024 Progress note Formatting of t his note might be different from the original. S: Tiffanie Mercado is doing well today, no complaints at this time. Nausea improving O: See OB Data A: IUP @ 12+4 NT completed Declined NIPT Asking about Vaccines offered in and medications Declined flu vaccine Declined LDA P: Schedule u/s for anatomy at 18-20 wks EGA. Reviewed blood pressure and weight. Return to office in 4 weeks and PRN. Doris Ramirez MD [facility] 09-04-2024 Miscellaneous Notes S: Tiffanie Penny Lenin is doing well today, no complaints at this time. Nausea improving O: See OB Data A: IUP @ 12+4 NT completed Declined NIPT Asking about Vaccines offered in and medications Declined flu vaccine Declined LDA P: Schedule u/s for anatomy at 18-20 wks EGA. Reviewed blood pressure and weight. Return to office in 4 weeks and PRN. Doris Ramirez MD documented in this encounter [facility] 09-04-2024 Instructions Evette Holguin MA - 09/04/2024 3:26 PM EST SEQUENTIAL SCREENINGS The [facility] offers sequential screenings for women who are interested in screenings for chromosomal abnormalities and certain defects during a . The sequential screen combines ultrasound and blood tests to determine the risk of chromosomal abnormalities, including Down's Syndrome (Trisomy 21) and Trisomy 18, as well as open neural tube defects including spina bifida. Ultrasound examination is performed between 11 weeks and 13 weeks gestational age. Blood tests are drawn after the ultrasound and again later in the between 15 and 21 weeks gestational age. Please let your physician know if you are interested in this testing. It will require an appointment with our support technician. This is not an ultrasound performed by a physician in our office during a routine visit. SIGNS AND SYMPTOMS OF LABOR 1. Contractions every 10 minutes or more often 2. Clear, pink, or brownish fluid (water) leaking from vagina 3. Feeling that baby is pushing down, pressure 4. Low, dull backache 5. Cramps that feel like a period 6. Cramps with or without diarrhea If you notice any of the above symptoms, contact our office at [phone] and ask to speak with a nurse. After hours, you can call doctors registry at [phone] OR call [facility] at [phone] and ask to have the doctor social media content specialist paged. If you consider this an emergency, dial 9-1-5 or go to your nearest emergency department. NEED HELP? Are you dealing with a violent or abusive relationship? Are you a victim of rape or sexual assult? Call [facility] [place] ([place]) 24 hour Crisis Hotline: 186.538.6649 or 952-395-6955. MANUAL Your Guide to a Healthy manual is now on-line. Visit [email or web address] to download your free copy documented in this encounter [facility] 08-07-2024 Progress note Formatting of t his note might be different from the original. YVON-See progress note, NOB. Desires NIPT and carrier screening, handouts given and will check pricing. NT US and PN labs next visit. Regina Sales APRN.CNM [facility] 08-07-2024 Miscellaneous Notes YVON-See progress note, NOB. Desires NIPT and carrier screening, handouts given and will check pricing. NT US and PN labs next visit. Regina Sales APRN.CNM documented in this encounter [facility] 08-06-2024 Note HNO ID: [id number] Author: REGINA SALES APRN.CNM Service: ? Author Type: Finisher Hand Type: Progress Notes Filed: 08/07/2024 10:43 Note Text: Patient declined center sales and service associate. INITIAL OB ASSESSMENT HPI: Hilario is a 28 year old No obstetric history on file. White Female here to establish Obstetrical Care. from OB Dating Form. was planned, had tried for three months. 06/08/24 Complaints: Heart racing or skipping beats OB History No obstetric history on file. Previous history: Prior : never History of 4th degree laceration: NA History of shoulder dystocia: No History of Hypertensive disorders including pre-eclampsia or gestational hypertension: No History of gestational diabetes: No Patient's Risk Screening for delivery: Have you had a prior finn between 20w and 36w6d? No How many pregnancies have you had before? 0 Did you have a previous baby with a GBS Infection? No Please select all that apply for any prior : N/A MEDICAL/PSYCHOSOCIAL HISTORY: History of hemorrhage or bleeding concerns: No Thyroid Disease: No History of chronic hypertension: No History of pre-existing diabetes: No Last Pap: History of abnormal pap: No Prior treatment for cervical dysplasia: none. Last HPV: History of STDs: None Partner History of STDs: None Did you have a partner with Herpes? No Tobacco use: No E-Cigarette/Vaping Use: No Caffeine use: Yes Drug use: No Alcohol use: No Multivitamin with Folic acid: Yes Would refuse blood transfusion if medically necessary: No Social Needs: How often does this describe you? I don't have enough money to pay my bills: Never Within the past 12 months, have you worried that your food would run out before you had money to buy more? Never In the past 12 months, has lack of reliable transportation kept you from going to medical appointments or work, or from getting things needed for daily living? Never In the past 12 months, have you had any concerns about having a place to live, or about the condition or quality of your housing? Never Social History: Do you have any history of depression, anxiety, PTSD, or other mood problems? No Do you have a history of abuse or trauma that may impact your experience? No Are you currently employed? Yes Depression/Anxiety Screening: denies symptoms of depression. OB Depression and Anxiety Screening- This Encounter (since 08/05/2024) None Genetic Screening: Partner present: No Patient verbalized knowledge of partner family health history: Yes Do you or your partner have any personal or family history of defects not previously discussed: No Do you have history of a complicated by anomaly, genetic condition, or demise: No Preeclampsia Risk Screening: Screening for prevention of preeclampsia: High risk factors: None Moderate risk ractors: Nulliparity OB Risk Screening: Completed, no positive findings documented. 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 (Patient not taking: Reported on 06/07/2024) loratadine (CLARITIN) 10 mg tablet Take 1 tablet by mouth once daily as needed. FOR ALLERGY SYMPTOMS 30 tablet 0 No current facility-administered medications for this visit. Allergies As of Date: 08/07/2024 Allergen Noted Reaction AMOXICILLIN 04/11/2020 Hives BACTRIM [SULFAMETHOXAZOLE-TRIMETH*08/07 Hives CATS 07/28/2011 Other: See Comments CLINDAMYCIN 01/08/2020 Hives DOGS 07/28/2011 Other: See Comments DOXYCYCLINE 04/11/2020 Unknown SEASONAL ALLERGIES 07/28/2011 Other: See Comments Fully Assessed 06/07/2024 Does patient have penicillin allergy: Yes, plan for allergy testing. REVIEW OF SYSTEMS: GENERAL: Negative for: Fever or Chills HEENT: Negative for: Headache, Impaired Vision, Ringing in Ears, Nosebleeds NECK: Negative for: Swelling, Pain, Stiffness RESPIRATORY: Negative for: Cough, Shortness of breath, Wheezing GASTROINTESTINAL: Negative for: Heartburn, Constipation, Diarrhea, Blood in stool, Vomiting MUSCULOSKELETAL: Negative for: Muscle or joint pain, stiffness, Joint swelling NEUROLOGIC/PSYCHIATRIC: Negative for: Weakness, Paralysis, Numbness, Tingling, Tremor, Anxiety, Depression, Memory loss SKIN: Negative for: Rash, Itching GENITOURINARY: Negative for: vaginal itching, vaginal d (more content not included)... [facility] 08-06-2024 History of Presen t illness Narrative Patient declined center sales and service associate. INITIAL OB ASSESSMENT HPI: Hilario is a 28 year old No obstetric history on file. White Female here to establish Obstetrical Care. from OB Dating Form. was planned, had tried for three months. 06/08/24 Complaints: Heart racing or skipping beats OB History No obstetric history on file. Previous history: Prior : never History of 4th degree laceration: NA History of shoulder dystocia: No History of Hypertensive disorders including pre-eclampsia or gestational hypertension: No History of gestational diabetes: No Patient's Risk Screening for delivery: Have you had a prior finn between 20w and 36w6d? No How many pregnancies have you had before? 0 Did you have a previous baby with a GBS Infection? No Please select all that apply for any prior : N/A MEDICAL/PSYCHOSOCIAL HISTORY: History of hemorrhage or bleeding concerns: No Thyroid Disease: No History of chronic hypertension: No History of pre-existing diabetes: No Last Pap: History of abnormal pap: No Prior treatment for cervical dysplasia: none. Last HPV: History of STDs: None Partner History of STDs: None Did you have a partner with Herpes? No Tobacco use: No E-Cigarette/Vaping Use: No Caffeine use: Yes Drug use: No Alcohol use: No Multivitamin with Folic acid: Yes Would refuse blood transfusion if medically necessary: No Social Needs: How often does this describe you? I don't have enough money to pay my bills: Never Within the past 12 months, have you worried that your food would run out before you had money to buy more? Never In the past 12 months, has lack of reliable transportation kept you from going to medical appointments or work, or from getting things needed for daily living? Never In the past 12 months, have you had any concerns about having a place to live, or about the condition or quality of your housing? Never Social History: Do you have any history of depression, anxiety, PTSD, or other mood problems? No Do you have a history of abuse or trauma that may impact your experience? No Are you currently employed? Yes Depression/Anxiety Screening: denies symptoms of depression. OB Depression and Anxiety Screening- This Encounter (since 08/05/2024) None Genetic Screening: Partner present: No Patient verbalized knowledge of partner family health history: Yes Do you or your partner have any personal or family history of defects not previously discussed: No Do you have history of a complicated by anomaly, genetic condition, or demise: No Preeclampsia Risk Screening: Screening for prevention of preeclampsia: High risk factors: None Moderate risk ractors: Nulliparity OB Risk Screening: Completed, no positive findings documented. 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 (Patient not taking: Reported on 06/07/2024) loratadine (CLARITIN) 10 mg tablet Take 1 tablet by mouth once daily as needed. FOR ALLERGY SYMPTOMS 30 tablet 0 No current facility-administered medications for this visit. Allergies As of Date: 08/07/2024 Allergen Noted Reaction AMOXICILLIN 04/11/2020 Hives BACTRIM [SULFAMETHOXAZOLE-TRIMETH*08/07 Hives CATS 07/28/2011 Other: See Comments CLINDAMYCIN 01/08/2020 Hives DOGS 07/28/2011 Other: See Comments DOXYCYCLINE 04/11/2020 Unknown SEASONAL ALLERGIES 07/28/2011 Other: See Comments Fully Assessed 06/07/2024 Does patient have penicillin allergy: Yes, plan for allergy testing. REVIEW OF SYSTEMS: GENERAL: Negative for: Fever or Chills HEENT: Negative for: Headache, Impaired Vision, Ringing in Ears, Nosebleeds NECK: Negative for: Swelling, Pain, Stiffness RESPIRATORY: Negative for: Cough, Shortness of breath, Wheezing GASTROINTESTINAL: Negative for: Heartburn, Constipation, Diarrhea, Blood in stool, Vomiting MUSCULOSKELETAL: Negative for: Muscle or joint pain, stiffness, Joint swelling NEUROLOGIC/PSYCHIATRIC: Negative for: Weakness, Paralysis, Numbness, Tingling, Tremor, Anxiety, Depression, Memory loss SKIN: Negative for: Rash, Itching GENITOURINARY: Negative for: vaginal itching, vaginal discharge, hematuria or dysuria SENSITIVE EXAM: The sensitive examination was discussed with the Patient or Patient's Authorized Infantry Officer. As applicable, any other physician, advance practice provider, medical student, or other health professional student that will be observing or involved in the sensitive examination for educational or training purposes was discussed with the Patient or Authorized Infantry Officer. The Patient or Authorized Infantry Officer has agreed to proceed with the sensitive examination. (Sensitive examination includes inspection and/or palpation of the breasts, pelvis, prostate and anorectal regions). PHYSICAL EXAM: BP 112/60 Wt 82.3 kg (181 lb 6.4 oz) LMP 06/08/2024 BMI 26.41 kg/m GENERAL: pleasant in no apparent distress DERMATOLOGY: Normal, without lesions, non-icteric, and non-hirsute NECK: Supple, full range of motion, no adenopathy, and thyroid normal CHEST: Normal inspiratory effort BREAST: soft, non-tender, symmetric, no dominant mass, normal nipple-areolar complex, no lymphadenopathy, and no nipple discharge ABDOMEN: soft, non-tender, and no masses NEURO: alert and oriented x3,exam grossly non-focal PELVIS: External genitalia normal without lesions. Perineal body intact. No vaginal or cervical lesions. Cervix closed. Uterus 8 week size. No adnexal masses or tenderness. Clinical Pelvimetry: Pelvimetry clinically assessed as adequate Limited OB ultrasound exam: single intrauterine , positive cardiac activity, crown-rump length 8w2d, and normal bilateral adnexa LMP consistent with US MARTI: 03/15/25 by LMP ASSESSMENT: 28 year old No obstetric history on file. at Unknown wks gestational age PLAN: 1) Patient oriented to practice. Patient given new OB orientation folder. Discussed nutrition, folic acid supplementation, dietary guidelines, exercise, smoking, alcohol, caffeine, and drug use. Discussed gestational weight gain guidelines. Discussed routine OB labs including STD/HIV. Discussed how to access Your guide to a health and the Dental Intern. Discussed hemoglobin electrophoresis. Patient: Accepts Reviewed midwifery and barber or beauty shop manager services that are available. 2) Screening: Hemoglobin A1C: ordered Baby Aspirin: The patient has been counseled about the potential benefits of low dose aspirin in and our recommendation that this be offered to all patients, regardless of whether they meet the high risk criteria specified above. She Accepts Aneuploidy Screening: Discussed aneuploidy screening, nuchal translucency/first trimester early anatomy ultrasound and NIPT. The risks/benefits and limitations of NIPT/aneuploidy screening were reviewed including the potential for false negative and false positive results. The availability of genetic counseling was reviewed. Information on aneuploidy screening was provided. The patient is uncertain. She will call back if she wants to proceed with screening. Pt aware of timing. Myriad Carrier Screening: Discussed myriad carrier screening. We discussed the availability of professional-society guided carrier screening and reviewed the conditions screened and limitations of screening. The availability of genetic counseling was reviewed. Information on carrier screening was provided. The patient will check with insurance 3) Patient offered option of Virtual Visits. Patient prefers in person visits. Follow up in 4 weeks or sooner prn. Regina Sales APRN.CNM documented in this encounter [facility] 08-06-2024 Instructions Regina Sales APRN.CNM - 08/06/2024 3:12 PM EST Please select the following link to access the [facility] Your Guide to a Healthy . [email or web address] de Nausea and Vomitin) Vitamin B6 50 mg by mouth twice daily. Take this daily until approximately 14 weeks for prevention. 2) Unisom 1/2 tablet by mouth at bedtime. May increase to full tablet if needed. If no improvement in nausea may up to a full tablet every 8 hours as needed. Share with Women Nausea and Vomiting During Do all women have nausea or vomiting during ? About one in 4 women have only mild nausea. Three of every 10 women have nausea that is bad enough to interfere with their daily lives. Half of all women have both nausea and vomiting during the first months of . Nausea and vomiting during tends to be the worst at 8 to 10 weeks after your last menstrual period. It usually goes away by 12 to 16 weeks after your last period. Nausea and vomiting during is often called morning sickness but can occur all day long or at any time in the day or night. What causes nausea and vomiting during ? The cause of nausea and vomiting during is not known for sure. Changes in hormone levels may be involved. If your mother had morning sickness when she was , you may be more likely to have nausea and vomiting during . A history of motion sickness or stomach problems before you got may be another risk factor. Nausea during is worse if you are dehydrated (there is not enough fluid in your body) or if the level of sugar in your blood is low from not eating often enough. Are nausea and vomiting during dangerous? Mild nausea and vomiting may make you feel awful, but it will not hurt you or your baby. You can talk to your health care provider about ways to make you feel better if nausea and or vomiting is making it hard for you to do your normal activities. Lots of vomiting that keeps you from keeping any food down is rare, but severe vomiting can cause health problems. You should call your health care provider if any of the following happen: You are not able to keep any liquids or foods down for 24 hours You are vomiting several times a day or after every meal You have abdominal pain, difficulty urinating, or a fever You do not urinate as often as usual and your urine is dark in color You are weak, dizzy, or faint when you stand up You do not gain weight or you lose weight in a week How are nausea and vomiting treated? Nausea or vomiting during is treated in 3 steps: 1. Simple diet changes in what you eat and how often you eat may lessen nausea and help you avoid vomiting. This is all it takes for many women. 2. If diet changes are not enough, you can try eating garima or using acupressure bands. Both have been shown to decrease nausea in research studies. 3. If the nausea and/or vomiting are making it hard to do your usual activities, your health care provider can prescribe medication. Your health care provider can talk with you about how often you have nausea and are vomiting then help you decide which of the following ways to treat nausea and vomiting will be best for you. Step One: Lifestyle and Diet Changes Drink small amounts of fluids often all day long. Drinking a small amount at one time will also help the nausea lessen. Cold drinks may make you feel better than hot drinks will. Eat small meals every 2 to 3 hours. Do notwait to be hungry or thirsty before you eat or drink. Eat something plain like crackers, toast, or cereal in themorning. Some women find it helps to eat something before getting out of bed. Avoid eating foods that have strong odors. Avoid foods that are greasy, fried, spicy, or very hot. Try eating foods that are high in carbohydrates, such as potatoes, noodles, rice, or toast.[employer] www.sharewithwomen.org Do not lie down right after eating. Some women say dairy products like yogurt are helpful, but this does not work for every woman. vitamins may make your nausea worse. If you take your vitamin at night or with food, it may not make you nauseated. Your provider can also help you find a vitamin that does not make your nausea worse. Vitamins that do not have iron in them are less likely to cause your stomach to be upset. Children s vitamins that have folic acid can also be used. If you stop taking a multivitamin, you should take one tablet of folic acid daily (0.4 mg, which is 400 micrograms per day). Folic acid tablets will not worsen nausea. Step Two: Treatments that Do Not Use Medications Garima Garima has been used for treating nausea since ancient times and can lessen nausea. Garima root tea, garima gum, garima snaps, garima syrup added to water, garima nolan, and all other forms of garima are safe to use in . You can also buy garima capsules at a drug store. The dose of garima that has been studied for nausea and vomiting in is 1 gram per day. Some forms of garima like tea or cookies do not list the dose. Ask your health care provider or pharmacist how often you should take garima products that do not have the dose of garima listed. Acupressure Bands Seabands are wristbands with a pressure point placed on the inside of your wrist. They are often used for motion sickness. Some women find them helpful for nausea during , and they are safe. Step Three: Medication There are several different types of nauseamedicines that work well and are safe for you and your baby. Because nausea and vomiting is caused by different triggers in your body, you and your health care provider can work together to find the medicine that is right for you. There are both [id number] and prescription medicines that can be used if your nausea and vomiting are severe. Ywqp-Ard-Fentfed Medication Whoz-gkt-eadwucx medications for motion sickness should not be taken during unless recommended by your health care provider. Many women have found that vitamin B6 is helpful for making mild nausea better. Vitamin B6 does not help stop vomiting. Your health care provider can help you choose the dose and how often to take vitamin B6 if you want to try it. Prescription Medication If your nausea and vomiting continues after trying lifestyle and diet changes and hiop-ezk-szywrez medications or you are vomiting frequently, you may need a prescription medication. There are several different prescription medicines that have been studied and found to be safe for you and your baby. Your health care provider can talk with you about these medicines. For More Information [employer] [facility]ausea [facility]om[facility]ine http://www.motherisk.org/women/ morningSickness.jsp Low Dose Aspirin start after 12 weeks This sheet talks about exposure to low dose aspirin in and while . This information should not take the place of medical care and advice from your healthcare provider.\ What is low dose aspirin? Aspirin is also known as acetylsalicylic acid. It is a common prescription and ummg-bdo-fyvgluz medication similar to other non-steroidal inflammatory drugs (NSAIDs) like ibuprofen (Motrin ) and naproxen (Aleve ). Aspirin reduces inflammation, fever, and pain. Aspirin can prevent blood clots, which can make it useful in treating or preventing conditions like heart attacks and strokes. Low dose aspirin ranges from 60 to 150 mg daily, but the usual dose taken during to treat or prevent certain conditions is 81 mg daily.Regular strength and high strength aspirin and other NSAIDs are NOT preferred pain relievers during .Sometimes when people find out they are , they think about changing how they take their medication, or stopping their medication altogether. However, it is important to talk with your healthcare providers before making any changes to how you take this medication. Your healthcare providers can talk with you about the benefits of treating your condition and the risks of untreated illness during . I take low dose aspirin. Can it make it harder for me to get ? Low dose aspirin is not expected to make it harder to get . A study that included people who had 1 or 2 documented losses then asked to take daily low dose aspirin found that taking low dose aspirin at least 4 days a week increased the chance of a . Does taking low dose aspirin increase the chance for miscarriage? Miscarriage can occur in any . Taking low doses of aspirin is not thought to increase the chance of miscarriage. Some studies have shown that taking low dose aspirin before may help lower the chance of miscarriage in some people who have had one or more miscarriages before 20 weeks of . These findings are similar to studies that showed improved outcomes in people undergoing assisted reproductive technologies (fertility treatments) and were treated with low dose aspirin prior to implantation of the fertilized egg into the uterus. Does taking low dose aspirin increase the chance of defects? Every starts out with a 3-5% chance of having a defect. This is called the background risk. Studies on the use of low dose aspirin during have not found a higher chance of defects. Does taking low dose aspirin in increase the chance of other related problems? Taking low dose aspirin as directed by a healthcare provider is not expected to cause other problems. Studies have shown that low dose aspirin might improve outcomes in some people by increasing blood flow to and reducing inflammation or swelling in the uterus. Studies have also shown that low dose aspirin might lower the chances for preeclampsia (dangerously high blood pressure and complications) in people who are at high risk for this condition. However, people who are should only take low dose aspirin if their healthcare provider recommends it. Does taking low dose aspirin in affect future behavior or learning for the child? There are not many studies about long-term effects for children exposed to low dose aspirin during . However, studies have not found an increased chance for problems with physical or mental development in infants at 18 months of age. A study that looked at children up to 5 years of age who were born very early (before 33 weeks) and who were exposed to low dose aspirin during did not find an effect on their learning or behavior compared to children who were not exposed to low dose aspirin during . while taking low dose aspirin: The occasional use of low dose aspirin (75 mg daily to below 300 mg daily) is not expected to increase risks to a infant. Only small amounts of low dose aspirin enter the breast milk and adverse effects have not been reported in breastfed newborns or older infants. Healthcare providers might recommend low dose aspirin in some people during to treat certain medical conditions. However, regular strength aspirin (over 325 mg) is not preferred during . Aspirin eliminates from an infant s body more slowly than from an adult s body, so aspirin levels in the s body could build up over time with long-term use of aspirin. Using high dose aspirin can lower the body s ability to clot blood(could lead to easier bruising or bleeding). This is not likely to happen with low dose aspirin. Talk with your Healthcare provider about your questions. If a male takes low dose aspirin, could it affect fertility (ability to get partner ) or increase the chance of defects? There is very limited information about the effects of low dose aspirin on male reproduction. One study looked at men who attended an infertility clinic and were taking non-prescribed low dose aspirin at different doses and frequencies for at least six months. The study reported a decrease in the amount and quality of sperm, especially in those who used higher amounts of aspirin. Generally, it is not considered necessary for men to stop using low dose aspirin before trying to get their partner . However, men undergoing fertility treatment may want to talk with their healthcare providers about whether or not they need to stop taking aspirin. In general, exposures that fathers or sperm donors have are unlikely to increase the risks to a . For more information, please see the [employer] fact sheet Paternal Exposures at https://[email or web address]/fact-s heets/ledhwkex-dernjkggy-xfssui ncy/. documented in this encounter [facility] 06-07-2024 Instructions Leah Pillai APRN.CNP - 06/07/2024 3:20 PM EDT ASSESSMENT/PLAN: 1. Lower resp. tract infection - ICD9: 519.8, ICD10: J22 (primary diagnosis) - AZITHROMYCIN 250 MG TABLET 2. Acute cough - ICD9: 786.2, ICD10: R05.1 - BENZONATATE 100 MG CAPSULE - Follow-up with your PCP in 3-5 days if symptoms have not improved or sooner if symptoms worsen - Discussed red flags and need for immediate medical evaluation if any occur. - Discussed supportive care treatment with fluids, rest and analgesia. - Discussed expected course of illness Leah Pillai APRN.CNP [facility] PATIENT INFO PNEUMONIA OVERVIEW Pneumonia is an infection of the lungs. It is a serious illness that can affect people of any age, although it is most serious in the very young, people over the age of 65, and those with underlying medical problems such as congestive heart disease, diabetes, and chronic lung disease. It is most common during the winter months, and occurs more often in smokers and men. This article will focus on community-acquired pneumonia (CAP), which refers to pneumonia that develops in people in the community, rather than in a hospital, senior living, or assisted-living facility. About four million cases of CAP occur each year in the [place], and approximately 20 percent of people require hospitalization. LUNG FUNCTION As we breathe, air is inhaled through the nose and mouth, and travels through the trachea and the bronchi to the bronchioles. At the end of the bronchioles, there are tiny air sacs, called alveoli. Alveoli have thin, porous lara that contain capillaries. The mouth and respiratory tract are constantly exposed to microorganisms as air is inhaled through the nose and mouth. However, the body's defenses are usually able prevent microorganisms from entering and infecting the lungs. These defenses include the immune system, the specialized shape of the nose and pharynx, the ability to cough, and fine hair-like structures called cilia located on the bronchi. Pneumonia can develop if your defenses are not adequate or the microorganism is particularly strong. As microorganisms multiply, the alveoli become inflamed and accumulate fluid. These changes lead to the symptoms of pneumonia. HIGH-RISK GROUPS Some groups of adults are at a greater risk of developing pneumonia. These include people who: Are greater than 65 years old Are cigarette smokers Are malnourished due to health conditions or lack of access to food Have underlying lung disease, including cystic fibrosis, asthma, or chronic obstructive pulmonary disease (emphysema) Have other underlying medical problems, including diabetes or heart disease Have a weakened immune system due to HIV, organ transplant, chemotherapy, or chronic steroid use Have difficulty coughing due to stroke, sedating drugs or alcohol, or limited mobility Have had a recent viral upper respiratory tract infection including influenza PNEUMONIA CAUSES Pneumonia can be caused by a variety of microorganisms, including viruses, bacteria, and less commonly, fungi. The most common cause of pneumonia in the [place] is the bacterium Streptococcus pneumoniae, or pneumococcus. Viruses are estimated to be the cause of adult CAP in at least 20 percent of cases. Fungi rarely cause pneumonia in people who are generally healthy; people with a weakened immune system (those with HIV, organ transplant patients, or those on chemotherapy) are at higher risk of fungal infection. Other organisms, such as Mycoplasma, are a common cause of mild pneumonia but can occasionally cause serious disease. PNEUMONIA SYMPTOMS Common symptoms of pneumonia include shortness of breath, pain with breathing, a rapid heart and breathing rate, nausea, vomiting, diarrhea, and a cough that often produces green or yellow sputum; occasionally the sputum is rust colored. Most people have a fever (temperature greater than 100.5 F or 38 C), although elderly people have fever less often. Shaking chills (called rigors) and a change in mental status (confusion, unclear thinking) can occur. The characteristics of pneumonia are different than those of a more common infection, acute viral bronchitis, which does not usually cause fever and does not require treatment with an antibiotic. PNEUMONIA DIAGNOSIS Pneumonia is usually diagnosed with a medical history and physical examination, and sometimes a chest x-ray. The need for further testing depends upon the severity of the illness and the person's risk of complications. Blood oxygen measurement -- Pneumonia can decrease the amount of oxygen available in the blood. As a result, a blood oxygen level is often measured by attaching a small clip to the finger or ear that uses infrared light. In those who are sicker, the oxygen level may be measured by withdrawing a sample of blood from an artery. PNEUMONIA TREATMENT The goal of treatment for patients with CAP is to treat the infection and prevent complications. Initial treatment of CAP is based upon the organism that is likely to be causing pneumonia (called empiric treatment). Most patients improve with empiric treatment. Hospital versus home care -- Most patients are treated for CAP at home with oral antibiotics. People who are seriously ill or are at increased risk for complications may be hospitalized. Hospital monitoring usually includes measurement of heart and breathing rate, temperature, and oxygen levels. Hospitalized patients are usually given intravenous (IV) antibiotics initially. The number of days spent in the hospital is variable, and depends upon how a person responds to treatment and if there are underlying medical problems. Some patients, including people with previous lung damage or disease, a weakened immune system, or infection in more than one lobe of the lungs (called multilobar pneumonia), may be slow to recover and require a longer hospitalization. Antibiotic choice -- A number of antibiotic treatment regimens exist for treatment of CAP. The choice of which antibiotic to use is based upon several factors, including the person's underlying medical problems and the likelihood of being infected with a bacteria that is resistant to specific drugs. People with certain underlying medical problems and those who have used antibiotics in the past three months have a higher risk of infection with drug resistant bacteria. For all antibiotic regimens, it is important to finish the entire course of medication and take it exactly as directed. EXPECTED RECOVERY FROM PNEUMONIA A person with pneumonia usually begins to improve after three to five days of antibiotic treatment. Improvement may be defined as feeling better or having fewer symptoms, such as cough and fever. Fatigue and a persistent, but milder, cough can last for up to one month, although most people are able to resume their usual activities within seven days. Patients treated in the hospital may require three weeks or more to resume normal activities. All patients, whether treated at home or in the hospital, should take special care of themselves during the recovery period. This includes getting adequate rest at night and taking naps during the day if needed. Patients should drink fluids to avoid becoming dehydrated; there is no specific amount of fluid recommended, but thirst is a good indicator of the need to drink more fluids. Patients should be sure to finish all of their antibiotic medication, even if they feel better after a few days. WHEN TO SEEK HELP Anyone who suspects that they have pneumonia should seek medical care as soon as possible. Pneumonia is a serious illness that can be life-threatening if not treated, especially for people who are older than 65 years, alcoholic, have underlying medical problems, or a weakened immune system. People with the following symptoms should see their healthcare provider promptly: Fever and cough with phlegm that does not improve or worsens New shortness of breath with normal daily activities Chest pain with breathing Feeling suddenly worse after a cold or the flu PREVENTION The pneumococcal vaccine is one of the most effective ways to prevent pneumonia. Smoking cessation is another important way to prevent pneumonia. Infection control -- Infection control measures can help to prevent the spread of any type of infection, including pneumonia. Infection control is most commonly practiced in healthcare settings, but is useful in the community as well. Simple practices such as frequent hand washing with soap and water or alcohol-based hand rubs can be effective. Because pneumonia is spread by contact with infected respiratory secretions, people with pneumonia should limit pnlr-ih-coyn contact with uninfected family and friends. The mouth and nose should be covered while coughing or sneezing, and tissues should be disposed of immediately. Sneezing/coughing into the sleeve of one's clothing (at the inner elbow) is another means of containing sprays of saliva and secretions and has the advantage of not contaminating the hands. documented in this encounter [facility] 06-07-2024 Note HNO ID: [id number] Author: LEAH PILLAI APRN.PROFESSOR OF COUNSELING Service: ? Author Type: Nurse Practitioner Type: Progress Notes Filed: 06/07/2024 15:25 Note Text: Subjective Cough Associated symptoms include headaches, myalgias and shortness of breath. Pertinent negatives include no chest pain, no chills, no ear pain, no sore throat and no wheezing. Tiffanie Mercado is a 28 year old female who presents with cough and chest congestion and shortness of breath for the past 2 weeks. She has felt feverish and has been having hot flashes at night. Cough is sometimes productive. Today she feels worse and has been having some back pain and nausea. She has been taking nyquil. 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 Review of Systems Constitutional: Positive for diaphoresis and malaise/fatigue. Negative for chills and fever. HENT: Negative for congestion, ear pain and sore throat. Respiratory: Positive for cough, sputum production and shortness of breath. Negative for hemoptysis and wheezing. Cardiovascular: Negative for chest pain. Gastrointestinal: Positive for nausea. Negative for abdominal pain and vomiting. Musculoskeletal: Positive for back pain and myalgias. Neurological: Positive for headaches. BP 126/78 Pulse 71 Temp 36.7 ?C (98.1 ?F) Resp 18 Wt 82.5 kg (181 lb 14.1 oz) LMP (LMP Unknown) SpO2 100% BMI 26.48 kg/m? PAST MEDICAL HISTORY Diagnosis Date Narcolepsy PMH - PAST MEDICAL HISTORY OF < 1 yr abscess drained from groin PAST SURGICAL HISTORY Procedure Laterality Date PAST SURGICAL HISTORY OF abscess of groin drained when an infant PAST SURGICAL HISTORY OF 01/27/2018 right ankle, hardware removed from fracture of 2015 REPAIR OF ANKLE FRACTURE Right 05/2015 ALLERGIES Amoxicillin, Bactrim [Sulfamethoxazole-Trimethoprim] , Cats, Clindamycin, Dogs, Doxycycline, and Seasonal Allergies MEDICATIONS loratadine (CLARITIN) 10 mg tablet Take 1 tablet by mouth once daily as needed. FOR ALLERGY SYMPTOMS azithromycin (ZITHROMAX Z-LATOYA) 250 mg tablet Take 2 tablets day one, then, 1 tablet daily until gone. benzonatate (TESSALON PERLE) 100 mg capsule Take 2 capsules by mouth three times a day as needed for up to 10 days. amphetamine-dextroamphetamine XR (ADDERALL XR) 15 mg 24 hr capsule Take by mouth. (Patient not taking: Reported on 06/07/2024) FAMILY HISTORY Problem Relation Age of Onset Diabetes Paternal Grandmother other (high cholesterol) Paternal Grandmother Hypertension Maternal Grandmother Hypertension Maternal Grandfather Diabetes Maternal Uncle type 1 Heart Maternal Uncle heart attack age 46 years Aneurysm Mother 45 AVMalformation other (brain tumor) Mother 44 Social History Tobacco Use Smoking status: Never Smokeless tobacco: Never Substance Use Topics Alcohol use: No Drug use: No Objective Physical Exam Vitals and nursing note reviewed. Constitutional: General: She is not in acute distress. Appearance: Normal appearance. She is not ill-appearing. HENT: Right Ear: Tympanic membrane, ear canal and external ear normal. Left Ear: Tympanic membrane, ear canal and external ear normal. Nose: Nose normal. No congestion or rhinorrhea. Mouth/Throat: Mouth: Mucous membranes are moist. Pharynx: Oropharynx is clear. Uvula midline. No oropharyngeal exudate or posterior oropharyngeal erythema. Cardiovascular: Rate and Rhythm: Normal rate and regular rhythm. Heart sounds: Normal heart sounds. Pulmonary: Effort: Pulmonary effort is normal. No respiratory distress. Breath sounds: Examination of the left-upper field reveals rales. Rales present. No wheezing. Musculoskeletal: Cervical back: Neck supple. Lymphadenopathy: Cervical: No cervical adenopathy. Skin: General: Skin is warm and dry. Findings: No erythema or rash. Neurological: Mental Status: She is alert. ASSESSMENT/PLAN: 1. Lower resp. tract infection - ICD9: 519.8, ICD10: J22 (primary diagnosis) - AZITHROMYCIN 250 MG TABLET 2. Acute cough - ICD9: 786.2, ICD10: R05.1 - BENZONATATE 100 MG CAPSULE - Follow-up with your PCP in 3-5 days if symptoms have not improved or sooner if symptoms worsen - Discussed red flags and need for immediate medical evaluation if any occur. - Discussed supportive care treatment with fluids, rest and analgesia. - Discussed expected course of illness Leah Pillai APRN.[facility] 06-07-2024 History of Presen t illness Narrative Subjective Cough Associated symptoms include headaches, myalgias and shortness of breath. Pertinent negatives include no chest pain, no chills, no ear pain, no sore throat and no wheezing. Tiffanie Mercado is a 28 year old female who presents with cough and chest congestion and shortness of breath for the past 2 weeks. She has felt feverish and has been having hot flashes at night. Cough is sometimes productive. Today she feels worse and has been having some back pain and nausea. She has been taking nyquil. 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 Review of Systems Constitutional: Positive for diaphoresis and malaise/fatigue. Negative for chills and fever. HENT: Negative for congestion, ear pain and sore throat. Respiratory: Positive for cough, sputum production and shortness of breath. Negative for hemoptysis and wheezing. Cardiovascular: Negative for chest pain. Gastrointestinal: Positive for nausea. Negative for abdominal pain and vomiting. Musculoskeletal: Positive for back pain and myalgias. Neurological: Positive for headaches. BP 126/78 Pulse 71 Temp 36.7 C (98.1 F) Resp 18 Wt 82.5 kg (181 lb 14.1 oz) LMP (LMP Unknown) SpO2 100% BMI 26.48 kg/m PAST MEDICAL HISTORY Diagnosis Date Narcolepsy PMH - PAST MEDICAL HISTORY OF < 1 yr abscess drained from groin PAST SURGICAL HISTORY Procedure Laterality Date PAST SURGICAL HISTORY OF abscess of groin drained when an infant PAST SURGICAL HISTORY OF 01/27/2018 right ankle, hardware removed from fracture of 2014 REPAIR OF ANKLE FRACTURE Right 05/2015 ALLERGIES Amoxicillin, Bactrim [Sulfamethoxazole-Trimethoprim] , Cats, Clindamycin, Dogs, Doxycycline, and Seasonal Allergies MEDICATIONS loratadine (CLARITIN) 10 mg tablet Take 1 tablet by mouth once daily as needed. FOR ALLERGY SYMPTOMS azithromycin (ZITHROMAX Z-LATOYA) 250 mg tablet Take 2 tablets day one, then, 1 tablet daily until gone. benzonatate (TESSALON PERLE) 100 mg capsule Take 2 capsules by mouth three times a day as needed for up to 10 days. amphetamine-dextroamphetamine XR (ADDERALL XR) 15 mg 24 hr capsule Take by mouth. (Patient not taking: Reported on 06/07/2024) FAMILY HISTORY Problem Relation Age of Onset Diabetes Paternal Grandmother other (high cholesterol) Paternal Grandmother Hypertension Maternal Grandmother Hypertension Maternal Grandfather Diabetes Maternal Uncle type 1 Heart Maternal Uncle heart attack age 46 years Aneurysm Mother 45 AVMalformation other (brain tumor) Mother 44 Social History Tobacco Use Smoking status: Never Smokeless tobacco: Never Substance Use Topics Alcohol use: No Drug use: No Objective Physical Exam Vitals and nursing note reviewed. Constitutional: General: She is not in acute distress. Appearance: Normal appearance. She is not ill-appearing. HENT: Right Ear: Tympanic membrane, ear canal and external ear normal. Left Ear: Tympanic membrane, ear canal and external ear normal. Nose: Nose normal. No congestion or rhinorrhea. Mouth/Throat: Mouth: Mucous membranes are moist. Pharynx: Oropharynx is clear. Uvula midline. No oropharyngeal exudate or posterior oropharyngeal erythema. Cardiovascular: Rate and Rhythm: Normal rate and regular rhythm. Heart sounds: Normal heart sounds. Pulmonary: Effort: Pulmonary effort is normal. No respiratory distress. Breath sounds: Examination of the left-upper field reveals rales. Rales present. No wheezing. Musculoskeletal: Cervical back: Neck supple. Lymphadenopathy: Cervical: No cervical adenopathy. Skin: General: Skin is warm and dry. Findings: No erythema or rash. Neurological: Mental Status: She is alert. ASSESSMENT/PLAN: 1. Lower resp. tract infection - ICD9: 519.8, ICD10: J22 (primary diagnosis) - AZITHROMYCIN 250 MG TABLET 2. Acute cough - ICD9: 786.2, ICD10: R05.1 - BENZONATATE 100 MG CAPSULE - Follow-up with your PCP in 3-5 days if symptoms have not improved or sooner if symptoms worsen - Discussed red flags and need for immediate medical evaluation if any occur. - Discussed supportive care treatment with fluids, rest and analgesia. - Discussed expected course of illness Leah Pillai APRN.PROFESSOR OF COUNSELING documented in this encounter [facility] 07-06-2023 History of Presen t illness Narrative This note was created using [employer]zzle[employer]. Subjective Tiffanie Mercado is a 27 year old female. HPI 7-year-old female presents for sore throat, headache, ear pressure and body aches x 3 days. Patient was here on Tuesday for similar symptoms. She had strep test and COVID/flu/RSV testing all of which was negative. Patient states over the past few days, symptoms have worsened. She does have low-grade fever of 99 F. She still has sore throat, body aches. She now has pressure in both the ears and pain in the left ear. No sick contacts that she is aware of. No other complaint. Review of Systems Constitutional: Positive for chills. Negative for fever. HENT: Positive for congestion, ear pain and sore throat. Respiratory: Positive for cough. Negative for shortness of breath. Cardiovascular: Negative for chest pain. Gastrointestinal: Negative for diarrhea and vomiting. Musculoskeletal: Positive for myalgias. Objective BP 104/62 Pulse 105 Temp 37.3 C (99.1 F) Resp 21 Wt 80.5 kg (177 lb 6.4 oz) LMP (LMP Unknown) SpO2 99% BMI 25.83 kg/m Physical Exam Vitals and nursing note reviewed. Constitutional: General: She is not in acute distress. Appearance: Normal appearance. She is not toxic-appearing. HENT: Right Ear: Tympanic membrane and ear canal normal. Left Ear: Ear canal normal. A middle ear effusion is present. Tympanic membrane is erythematous. Nose: Nose normal. Mouth/Throat: Mouth: Mucous membranes are moist. Pharynx: Uvula midline. Posterior oropharyngeal erythema present. No oropharyngeal exudate. Tonsils: No tonsillar exudate. 1+ on the right. 1+ on the left. Eyes: Conjunctiva/sclera: Conjunctivae normal. Cardiovascular: Rate and Rhythm: Normal rate and regular rhythm. Pulmonary: Effort: Pulmonary effort is normal. Breath sounds: Normal breath sounds. Neurological: Mental Status: She is alert. Assessment and Plan ASSESSMENT/PLAN: 1. Acute otitis media, left - ICD9: 382.9, ICD10: H66.92 (primary diagnosis) - Will begin treatment with as per antibiotic as written, see orders - Supportive care with plenty of fluids, rest, and analgesia prn. 2. Sore throat - ICD9: 462, ICD10: J02.9 - suspect viral - Group A strep molecular testing negative - Discussed supportive care treatment with fluids, rest and analgesia. - STREP A MOLECULAR (POC) -Had COVID/flu/RSV testing Tuesday which was negative. Diagnosis and treatment plan were discussed and questions were answered to the patient's satisfaction. Pt acknowledged understanding of concepts and follow up plan. Specific signs and symptoms that would indicate the need for higher level of care were discussed in detail warranting prompt ER evaluation. ADITHYA Hanley documented in this encounter [facility] 07-05-2023 Miscellaneous Notes Patient notified of results and provider's instructions. Patient verbalizes understanding. Ana Lilia Souza RN Left message for patient to return call. Annabel Prado Please notify that covid/flu/rsv testing negative. Continue with plan of care as discussed during visit. documented in this encounter [facility] 07-04-2023 History of Presen t illness Narrative This note was created using [employer]zzle[employer]. Subjective Tiffanie Mercado is a 27 year old female. HPI Presents with a chief complaint of sore throat, throat swelling, congestion fever headache over the past day. 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 She denies significant cough. No chest pain or shortness of breath. No vomiting or diarrhea. No OTC meds used. Review of Systems Constitutional: Positive for chills, fatigue and fever. HENT: Positive for congestion, rhinorrhea and sore throat. Negative for ear pain. Respiratory: Negative. Cardiovascular: Negative. Gastrointestinal: Negative. Genitourinary: Negative. Musculoskeletal: Positive for myalgias. Neurological: Positive for headaches. All other systems reviewed and are negative. PAST MEDICAL HISTORY Diagnosis Date Narcolepsy PMH - PAST MEDICAL HISTORY OF < 1 yr abscess drained from groin Current Outpatient Medications Medication Sig Dispense Refill amphetamine-dextroamphetamine XR (ADDERALL XR) 15 mg 24 hr capsule Take by mouth. loratadine (CLARITIN) 10 mg tablet Take 1 tablet by mouth once daily as needed. FOR ALLERGY SYMPTOMS 30 tablet 0 No current facility-administered medications for this visit. PAST SURGICAL HISTORY Procedure Laterality Date PAST SURGICAL HISTORY OF abscess of groin drained when an infant PAST SURGICAL HISTORY OF 01/27/2018 right ankle, hardware removed from fracture of 2015 REPAIR OF ANKLE FRACTURE Right 05/2015 FAMILY HISTORY Problem Relation Age of Onset Diabetes Paternal Grandmother other (high cholesterol) Paternal Grandmother Hypertension Maternal Grandmother Hypertension Maternal Grandfather Diabetes Maternal Uncle type 1 Heart Maternal Uncle heart attack age 46 years Aneurysm Mother 45 AVMalformation other (brain tumor) Mother 44 Social History Tobacco Use Smoking status: Never Smokeless tobacco: Never Substance Use Topics Alcohol use: No Drug use: No Objective BP 131/76 Pulse 70 Temp 36.3 C (97.4 F) Resp 18 Wt 80.6 kg (177 lb 9.6 oz) LMP (LMP Unknown) SpO2 100% BMI 25.86 kg/m Physical Exam Vitals reviewed. Constitutional: Appearance: Normal appearance. HENT: Head: Normocephalic and atraumatic. Right Ear: Tympanic membrane, ear canal and external ear normal. Left Ear: Tympanic membrane, ear canal and external ear normal. Nose: Nose normal. Mouth/Throat: Mouth: Mucous membranes are moist. Pharynx: Uvula midline. Pharyngeal swelling and posterior oropharyngeal erythema present. No oropharyngeal exudate or uvula swelling. Tonsils: No tonsillar exudate or tonsillar abscesses. 1+ on the right. 1+ on the left. Cardiovascular: Rate and Rhythm: Normal rate and regular rhythm. Heart sounds: Normal heart sounds. Pulmonary: Effort: Pulmonary effort is normal. Breath sounds: Normal breath sounds. Musculoskeletal: Cervical back: Neck supple. Lymphadenopathy: Cervical: Cervical adenopathy present. Skin: General: Skin is warm and dry. Findings: No rash. Neurological: General: No focal deficit present. Mental Status: She is alert. Assessment and Plan ASSESSMENT/PLAN: 1. Viral URI - ICD9: 465.9, ICD10: J06.9 - Discussed viral etiology and rationale for treatment. - Group A strep molecular testing negative - Symptomatic treatment with prn analgesia - Supportive care with fluids and rest - The patient may also use OTC cough and cold meds as needed and warm salt water gargles, throat lozenges and/or OTC throat spray as needed. - Follow up in one week if symptoms persist or sooner if worsening of symptoms - STREP A MOLECULAR (POC) - COVID & INFLUENZA A/B & RSV NAAT, ROUTINE Angeline Haynes PA-C documented in this encounter [facility] 07-04-2023 Instructions Angeline Haynes PA-C - 07/04/2023 3:30 PM EST Tylenol/ibuprofen as needed for pain Warm or cool liquids Cepacol lozenges OTC cough and cold medications If not better in a week be seen again documented in this encounter [facility] 01-06-2023 Telephone encounter Note Pt appt was bumped and make up date is telehealth only. Her visit was to be in person with a tox screen. Pt scheduled the make up date telehealth appt and would like the order for her tox screen to be faxed so she can have done locally. [facility] 01-06-2023 Miscellaneous Notes Pt appt was bumped and make up date is telehealth only. Her visit was to be in person with a tox screen. Pt scheduled the make up date telehealth appt and would like the order for her tox screen to be faxed so she can have done locally. Last appointment: 09/08/22 Future appointment scheduled (if no appointment within 1 year, schedule per last AVS):Aug appt bumped, now telehealth 04/18/23 Last provider seen:Beto Who is calling? We called pt due to bumped appt Number to call back? [phone] Name of facility and fax number of where paperwork needs faxed: [facility] in [facility]. DME name if applicable. na What type of order is being requested? tox screen to be faxed Ordering Provider? Pérez When does the order need returned? khanh (Please route urgent if less than 48 hours.) Route encounter to as follows: Pulmonary Patient---[facility] Forms/Processing Orders Pool. Sleep Patient---[facility] Sleep Team Pool Urgent (only if patient is waiting in the lab) -- Triage If the patient is waiting at the lab - send the message back high priority and attempt to warm transfer the caller to the triage line in case there are additional questions. documented in this encounter [facility] 01-05-2023 Telephone encounter Note Last appointment: 09/08/22 Future appointment scheduled (if no appointment within 1 year, schedule per last AVS):Rona hardwick, now telehealth 04/18/23 Last provider seen:Beto Who is calling? We called pt due to bumped appt Number to call back? [phone] Name of facility and fax number of where paperwork needs faxed: [facility] in [facility]. DME name if applicable. na What type of order is being requested? tox screen to be faxed Ordering Provider? Pérez When does the order need returned? khanh (Please route urgent if less than 48 hours.) Route encounter to as follows: Pulmonary Patient---[facility] Forms/Processing Orders Pool. Sleep Patient---[facility] Sleep Team Pool Urgent (only if patient is waiting in the lab) -- Triage If the patient is waiting at the lab - send the message back high priority and attempt to warm transfer the caller to the triage line in case there are additional questions. [facility] 11-04-2022 History of Presen t illness Narrative Patient presents with: Rash: Rash all over x 1 week HPI: Rash: Location: torso, arms, neck, face Duration: about 1 week Pruritis: Yes Pain: No Change: started on abdomen, spread Bleeding/ulceration/blister/pus tule: red blotches Contacts with rash: No Exposure: No new soaps, detergents, fabric softeners, lotions. 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 Change in medications: out of adderall for a few weeks, started back on today. Recent illness: Yes, treated for strep throat with keflex 10/18/22. Treatment: none PAST MEDICAL HISTORY Diagnosis Date Narcolepsy PMH - PAST MEDICAL HISTORY OF < 1 yr abscess drained from groin MEDICATIONS: amphetamine-dextroamphetamine XR (ADDERALL XR) 15 mg 24 hr capsule Take by mouth. loratadine (CLARITIN) 10 mg tablet Take 1 tablet by mouth once daily as needed. FOR ALLERGY SYMPTOMS ALLERGIES: ALLERGIES Allergen Reactions Amoxicillin Hives Bactrim [Sulfametho* Hives Bactrim [Sulfametho* Unknown Cats Other: See Comments Sneezing, itchy eyes, cough Clindamycin Hives Dogs Other: See Comments Sneezing, itchy eyes, cough Doxycycline Unknown Seasonal Allergies Other: See Comments Sneezing, itchy eyes VITALS: BP 120/82 Pulse 80 Temp 36.8 C (98.2 F) (Tympanic) Resp 18 Wt 77.2 kg (170 lb 3.2 oz) LMP (LMP Unknown) SpO2 99% BMI 24.78 kg/m PHYSICAL EXAM: GEN: pleasant, no acute distress, alert SKIN: patches of salmon dry rash with slight scale distributed over the torso and neck. Solitary patch or acne on the left cheek. THROAT: no erythema or edema, two 1mm yellow-white spots left upper tonsil NECK: Supple, no lymphadenopathy. ASSESSMENT/PLAN: 1. Pityriasis rosea - ICD9: 696.3, ICD10: L42 Discussed self-limited rash of idiopathic origin. Is considered noncontagious and resolves without specific treatment. Lázaro Soriano MD documented in this encounter [facility] 09-08-2022 History of Presen t illness Narrative This [employer]CLER verified patient name and date of . Tiffanie Mercado is a 27 y.o. female who comes in for follow up regarding narcolepsy that was diagnosed in 2016. She is taking adderall XR 15 mg at 8 -9am. She maybe naps occasionally on the weekend briefly. She finds these very refreshing. She is now sleeping from 9:30 pm and then wakes at 6:30am. Her last episode of cataplexy was over the holidays where she became weak with laughter. This has been the only event in the past several years. She sleep paralysis if she is napping and has had sleep hallucinations with naps. She has had no episodes of sleep paralysis since our last visit. She has had no sleep hallucinations. She does complain of waking 10-12 times per night. She denies palpitations or dizziness or irritability with her medication. She denies any difficulty staying alert while driving. She has not fallen asleep while driving. 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 She reported weakness of her lower extremities with laughter that occur about once every couple of weeks. 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 She had no history of asthma prior to this. She was subsequently changed to adderall XR. She continues to regularly work out 3-4 days per week with strength training and indoor biking or running. Sleep Medicine Patient Reported Outcomes 12/04/2018 06/07/2019 01/08/2020 08/26/2020 02/24/2021 07/28/2021 09/08/2022 ESS - - - - - 15 - ESS (manually scored) 11 18 15 12 14 - 16 FOSQ - - - - - 18.5 - FOSQ (manually scored) 17.75 15 18.8 18 18.5 - 13.5 Past Medical History She has a past medical history of Asthma (April 2016) and Narcolepsy. Past Social History She reports that she has never smoked. She has never used smokeless tobacco. She reports that she does not drink alcohol and does not use drugs. caffeinated drinks/day: 2 caffeine Allergies She is allergic to clindamycin, dog [*animal dander], seasonal, and sulfamethoxazole-trimethoprim. Medications She has a current medication list which includes the following prescription(s): amphetamine-dextroamphetamine xr and ibuprofen. Review of Systems A complete review of systems was negative except that noted in HPI She denies any shortness of breath or wheezing. 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 She is complaining of sleep fragmentation today. Her symptoms of exercise induced asthma were likely related to the modafinil. Continue adderall XR 15mg in am. She is stable on this dose without side effects. Ordering adderall today. Ordered a repeat urine tox screen. She will try to get this done locally. Given her hypnagogic hallucinations, sleep paralysis, cataplexy and continued excessive daytime sleepiness will start xywav. She is aware to never drive if drowsy. documented in this encounter [facility] 09-08-2022 History of Presen t illness Narrative This WASTE RECYCLER verified patient name and date of . Tiffanie Mercado is a 27 y.o. female who comes in for follow up regarding narcolepsy that was diagnosed in 2015. She is taking adderall XR 15 mg at 8 -9am. She maybe naps occasionally on the weekend briefly. She finds these very refreshing. She is now sleeping from 9:30 pm and then wakes at 6:30am. Her last episode of cataplexy was over the holidays where she became weak with laughter. This has been the only event in the past several years. She sleep paralysis if she is napping and has had sleep hallucinations with naps. She has had no episodes of sleep paralysis since our last visit. She has had no sleep hallucinations. She does complain of waking 10-12 times per night. And does not feel rested upon awakening. She denies palpitations or dizziness or irritability with her medication. She denies any difficulty staying alert while driving. She has not fallen asleep while driving. 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 She reported weakness of her lower extremities with laughter that occur about once every couple of weeks. 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 She had no history of asthma prior to this. She was subsequently changed to adderall XR. She continues to regularly work out 3-4 days per week with strength training and indoor biking or running. Sleep Medicine Patient Reported Outcomes 12/04/2018 06/07/2019 01/08/2020 08/26/2020 02/24/2021 07/28/2021 09/08/2022 ESS - - - - - 15 - ESS (manually scored) 11 18 15 12 14 - 16 FOSQ - - - - - 18.5 - FOSQ (manually scored) 17.75 15 18.8 18 18.5 - 13.5 Past Medical History She has a past medical history of Asthma (April 2016) and Narcolepsy. Past Social History She reports that she has never smoked. She has never used smokeless tobacco. She reports that she does not drink alcohol and does not use drugs. caffeinated drinks/day: 2 caffeine Allergies She is allergic to clindamycin, dog [*animal dander], seasonal, and sulfamethoxazole-trimethoprim. Medications She has a current medication list which includes the following prescription(s): amphetamine-dextroamphetamine xr and ibuprofen. Review of Systems A complete review of systems was negative except that noted in HPI She denies any shortness of breath or wheezing. 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 She is complaining of sleep fragmentation today. Her symptoms of exercise induced asthma were likely related to the modafinil. Continue adderall XR 15mg in am. She is stable on this dose without side effects. Ordering adderall today. Ordered a repeat urine tox screen. She will try to get this done locally. Given her hypnagogic hallucinations, sleep paralysis, cataplexy and continued excessive daytime sleepiness will start xywav. Completed paperwork today. She is aware to never drive if drowsy. documented in this encounter [facility] 09-08-2022 Instructions Maria Del Carmen Pérez MD - 09/08/2022 1:00 PM EST Drowsy Driving Tips These suggestions will help prevent you from the risk of drowsy driving. 1. If you feel tired or drowsy do not drive. Sleepiness is a major cause of motor vehicle accidents and accounts for 40% of all fatal crashes reported on the [facility]. No matter how much you think you can control sleepiness, you can't. 2. Ensure you follow your doctor's advice about the treatment for your sleep disorder. For example, if you have sleep apnea and use CPAP, ensure you use it fully the night before your trip. 3. Get a good night's sleep before driving. Do not reduce your sleep time if you plan a long drive the next day. Get to bed early and do not stay up late packing. 4. Avoid alcohol both the night before your trip and the during your trip. Alcohol will disrupt sleep and make you more tired the next day. Sleepiness and alcohol are additive in increasing impairment of your driving ability. 5. Avoid any sedative medications, including sedative antihistamines that are often contained in cold or allergy medications, the night before you drive as they may have long lasting effects the next day. 6. Travel during non-sleeping hours. Accidents due to sleepiness are more common during the nighttime hours. 7. If sleepy, stop and rest. Drink coffee, walk around or have a brief nap in your car if you are sleepy. Have a 10-15 minute break after every [address] with a ice cream freezer helper. Share the driving. Relax in the back seat until it is your time to share the driving again. documented in this encounter [facility] Evaluation note Diagnosis Narcolepsy with cataplexy- Primary Primary narcolepsy with cataplexy Sleep dysfunction with arousal disturbance [facility] Pityriasis rosea- Primary [facility] Diagnosis Viral URI- Primary Acute upper respiratory infections of unspecified site [facility] Diagnosis Acute otitis media, left- Primary Unspecified otitis media Sore throat Acute pharyngitis [facility] Diagnosis Lower resp. tract infection- Primary Other diseases of respiratory system, not elsewhere classified Acute cough [facility] Diagnosis 8 weeks gestation of - Primary state, incidental Encounter for care in first trimester of first Screening for cervical cancer Screening for malignant neoplasm of the cervix Encounter for supervision of normal first in first trimester Supervision of normal first Primary narcole[facility] with [facility]lexy [facility] Encounter for screening for malformation using ultrasound- Primary 12 weeks gestation of state, incidental [facility] Diagnosis 12 weeks gestation of - Primary state, incidental Encounter for care in second trimester of first [facility] Diagnosis Narcolepsy with cataplexy- Primary [facility] Diagnosis 16 weeks gestation of - Primary state, incidental Encounter for care in second trimester of first [facility] Diagnosis Encounter for care in second trimester of first - Primary 20 weeks gestation of state, incidental Encounter for supervision of normal first in first trimester Supervision of normal first [facility] Diagnosis Encounter for anatomic survey- Primary 16 weeks gestation of state, incidental [facility] Diagnosis Encounter for supervision of normal first in second trimester ([facility])- Primary Supervision of normal first 24 weeks gestation of ([facility]) state, incidental Screening for diabetes mellitus Allergy to amoxicillin Personal history of allergy to penicillin [facility] Diagnosis Encounter for follow-up ultrasound of anatomy ([facility])- Primary 24 weeks gestation of ([facility]) state, incidental [facility] Diagnosis Encounter for supervision of normal first in second trimester ([facility])- Primary Supervision of normal first 28 weeks gestation of ([facility]) state, incidental [facility] Diagnosis Adverse effect of penicillin, sequela- Primary Vasovagal syncope Syncope and collapse with 30 completed weeks gestation (HCC) [facility] Diagnosis Encounter for supervision of normal first in third trimester ([facility])- Primary Supervision of normal first 30 weeks gestation of ([facility]) state, incidental Penicillin allergy Personal history of allergy to penicillin [facility] Diagnosis Encounter for supervision of normal first in third trimester ([facility])- Primary Supervision of normal first 33 weeks gestation of ([facility]) state, incidental Penicillin allergy Personal history of allergy to penicillin [facility] Diagnosis Encounter for supervision of normal first in third trimester ([facility])- Primary Supervision of normal first 35 weeks gestation of ([facility]) state, incidental Penicillin allergy Personal history of allergy to penicillin [facility] Diagnosis 37 weeks gestation of ([facility])- Primary state, incidental Encounter for supervision of normal first in third trimester ([facility]) Supervision of normal first * Assessment & Plan Note - Sarath Hale MD - 02/22/2025 1:21 PM EDTAssociated Problem(s): Encounter for supervision of normal in third trimester ([facility]) Orders: URINE OB DIP B/O documented in this encounter [facility] note* Diagnosis 37 weeks gestation of ([facility])- Primary state, incidental Encounter for supervision of normal first in third trimester ([facility]) Supervision of normal first 38 weeks gestation of (HCC)- Primary state, incidental Encounter for supervision of normal first in third trimester (HCC) Supervision of normal first [facility] Diagnosis 37 weeks gestation of (HCC)- Primary state, incidental Encounter for supervision of normal first in third trimester (HCC) Supervision of normal first Encounter for supervision of normal first in third trimester (HCC)- Primary Supervision of normal first 38 weeks gestation of (HCC) state, incidental [facility] Diagnostic Procedure Only (Routine) - Authorized Specialty Diagnoses / Procedures Referred By Fuad isbell Referred To [facility] Diagnoses 8 weeks gestation of Encounter for care in first trimester of first Procedures NUCHAL TRANSLUCENCY WHI US NUCHAL TRANSLUCENCY 1ST GESTATION Regina Sales APRN.CNM [address] [place] [address] [facility] [address] [place] [address] Referral ID Status Reason Start Date Expiration Date Visits Requested Visits Authorized [id number] Authorized Auto-Generat ed Referral 4 08/07/2025 1 1 [facility] Family History No Family History Records Found Mother Name Dates Details Family history of neoplasm o f brain(V19.8, Z84.89) Status:Active Family history of cerebral a neurysm(V17.1, Z82.49) Status:Active Mother Name Dates Details Family history of neoplasm o f brain(V19.8, Z84.89) Status:Active Family history of cerebral a neurysm(V17.1, Z82.49) Status:Active Mother Name Dates Details Family history of neoplasm o f brain(V19.8, Z84.89) Status:Active Family history of cerebral a neurysm(V17.1, Z82.49) Status:Active Summary Purpose Advance Directives No Advanced Directives Records FoundNo Advanced Directives Records FoundNo Advanced Directives Records FoundNo Advanced Directives Records FoundNo Advanced Directives Records FoundNo Advanced Directives Records FoundNo Advanced Directives Records Found Additional Source Comments INFORMATION SOURCE (unrecogn ized section and content) DATE CREATED AUTHOR 01/11/2020 [facility] DATE CREATED AUTHOR AUTHOR'S ORGANIZ ATION 01/11/2020 [facility] DATE CREATED AUTHOR AUTHOR'S ORGANIZ ATION 09/05/2020 [facility] DATE CREATED AUTHOR AUTHOR'S ORGANIZ ATION 09/11/2020 [facility] DATE CREATED AUTHOR AUTHOR'S ORGANIZ ATION 09/07/2024 [facility] DATE CREATED AUTHOR AUTHOR'S ORGANIZ ATION 02/15/2025 [facility] DATE CREATED AUTHOR AUTHOR'S ORGANIZ ATION 03/18/2025 [facility] Reason for Visit (unrecogniz ed section and content) Reason Comments Follow-up Thinks medication do lorenza needs increased Reason Comments Rash Rash all over x 1 we ek Reason Onset Date Comments Order Request 01/05/2023 Reason Comments Sore Throat Fever, [place], congestio n x1 day Reason Comments Results Reason Comments Ear Problem Bilateral ear pressu re, swollen throat, [place], body aches x 3 days Reason Comments Cough Chest congestion, SO B, low fevers x2 weeks Reason Comments Initial OB Visit Reason Comments US Specialty Diagnoses / Procedures Referred By Contac t Referred To Contact [facility] Diagnoses 8 weeks gestation of Encounter for care in first trimester of first Procedures NUCHAL TRANSLUCENCY WHI US NUCHAL TRANSLUCENCY 1ST GESTATION Regina [place] [address] [facility] [address] [place] [id number] Referral ID Status Reason Start Date Expiration Date V isits Requested Visits Authorized [id number] Closed Auto-Generate d Referral 08/07/2024 08/07/2025 1 1 Reason Onset Date Comments Care 09/04/2024 Reason Comments Follow-up Reason Onset Date Comments Care 10/02/2024 Reason Onset Date Comments Care 10/29/2024 Specialty Diagnoses / Procedures Referred By Contac t Referred To [facility] Diagnoses 16 weeks gestation of Procedures OBSTETRIC ULTRASOUND WHI US PREG UTERUS AFTER 1ST TRIMEST GESTATION Sarath Hale MD [address] [place] [address] Phone: tel: fax: [address] [phone] Referral ID Status Reason Start Date Expiration Date V isits Requested Visits Authorized [id number] Closed Auto-Generate d Referral 10/02/2024 10/02/2025 1 1 Reason Onset Date Comments Care 11/26/2024 Specialty Diagnoses / Procedures Referred By Contac t Referred To Contact [facility] Diagnoses Encounter for care in second trimester of first (HCC) 20 weeks gestation of (HCC) Procedures OBSTETRIC ULTRASOUND WHI US PREG UTERUS AFTER 1ST TRIMEST GESTATION Mimi Gotti MD [address] [place] [address] Phone: tel: fax: [address] [phone] Referral ID Status Reason Start Date Expiration Date V isits Requested Visits Authorized [id number] Closed Auto-Generate d Referral 10/29/2024 10/29/2025 1 1 Reason Onset Date Comments Care 12/24/2024 Reason Comments Syncope Reason Comments penicillin testing Reason Onset Date Comments Care 01/08/2025 Reason Onset Date Comments Care 01/30/2025 Reason Onset Date Comments Care 02/13/2025 Reason Onset Date Comments Care 02/22/2025 Reason Onset Date Comments Care 03/01/2025 Reason Onset Date Comments Care 03/04/2025 Care Teams (unrecognized sec tion and content) Police Magistrate Relationship Specialty Start Date End Date Yahaira Watts MD PCP - General Pediatrics 08/17/16 Police Magistrate Relationship Specialty Start Date End Date Yahaira Watts MD PCP - General Pediatrics 08/17/16 Police Magistrate Relationship Specialty Start Date End Date Yahaira Watts MD PCP - General Pediatrics 08/17/16 Source Comments (unrecognize d section and content) In the event this informatio n is protected by the Federal Confidentiality of Alcohol and Drug Abuse Patient Records regulations: The Federal rules restrict any use of the information to criminally investigate or prosecute any alcohol or drug abuse patient.[facility] the event this information is protected by the Federal Confidentiality of Alcohol and Drug Abuse Patient Records regulations: The Federal rules restrict any use of the information to criminally investigate or prosecute any alcohol or drug abuse patient.[facility] Center[facility] the event this information is protected by the Federal Confidentiality of Alcohol and Drug Abuse Patient Records regulations: The Federal rules restrict any use of the information to criminally investigate or prosecute any alcohol or drug abuse patient.[facility] the event this information is protected by the Federal Confidentiality of Alcohol and Drug Abuse Patient Records regulations: The Federal rules restrict any use of the information to criminally investigate or prosecute any alcohol or drug abuse patient.[facility] the event this information is protected by the Federal Confidentiality of Alcohol and Drug Abuse Patient Records regulations: The Federal rules restrict any use of the information to criminally investigate or prosecute any alcohol or drug abuse patient.[facility] Center[facility] the event this information is protected by the Federal Confidentiality of Alcohol and Drug Abuse Patient Records regulations: The Federal rules restrict any use of the information to criminally investigate or prosecute any alcohol or drug abuse patient.[facility] Center[facility] the event this information is protected by the Federal Confidentiality of Alcohol and Drug Abuse Patient Records regulations: The Federal rules restrict any use of the information to criminally investigate or prosecute any alcohol or drug abuse patient.[facility] Center[facility] the event this information is protected by the Federal Confidentiality of Alcohol and Drug Abuse Patient Records regulations: The Federal rules restrict any use of the information to criminally investigate or prosecute any alcohol or drug abuse patient.[facility] Center[facility] the event this information is protected by the Federal Confidentiality of Alcohol and Drug Abuse Patient Records regulations: The Federal rules restrict any use of the information to criminally investigate or prosecute any alcohol or drug abuse patient.[facility] the event this information is protected by the Federal Confidentiality of Alcohol and Drug Abuse Patient Records regulations: The Federal rules restrict any use of the information to criminally investigate or prosecute any alcohol or drug abuse patient.[facility] the event this information is protected by the Federal Confidentiality of Alcohol and Drug Abuse Patient Records regulations: The Federal rules restrict any use of the information to criminally investigate or prosecute any alcohol or drug abuse patient.[facility] the event this information is protected by the Federal Confidentiality of Alcohol and Drug Abuse Patient Records regulations: The Federal rules restrict any use of the information to criminally investigate or prosecute any alcohol or drug abuse patient.[facility] the event this information is protected by the Federal Confidentiality of Alcohol and Drug Abuse Patient Records regulations: The Federal rules restrict any use of the information to criminally investigate or prosecute any alcohol or drug abuse patient.[facility] the event this information is protected by the Federal Confidentiality of Alcohol and Drug Abuse Patient Records regulations: The Federal rules restrict any use of the information to criminally investigate or prosecute any alcohol or drug abuse patient.[facility] the event this information is protected by the Federal Confidentiality of Alcohol and Drug Abuse Patient Records regulations: The Federal rules restrict any use of the information to criminally investigate or prosecute any alcohol or drug abuse patient.[facility] the event this information is protected by the Federal Confidentiality of Alcohol and Drug Abuse Patient Records regulations: The Federal rules restrict any use of the information to criminally investigate or prosecute any alcohol or drug abuse patient.[facility] the event this information is protected by the Federal Confidentiality of Alcohol and Drug Abuse Patient Records regulations: The Federal rules restrict any use of the information to criminally investigate or prosecute any alcohol or drug abuse patient.[facility] the event this information is protected by the Federal Confidentiality of Alcohol and Drug Abuse Patient Records regulations: The Federal rules restrict any use of the information to criminally investigate or prosecute any alcohol or drug abuse patient.[facility] the event this information is protected by the Federal Confidentiality of Alcohol and Drug Abuse Patient Records regulations: The Federal rules restrict any use of the information to criminally investigate or prosecute any alcohol or drug abuse patient.[facility] Center[facility] the event this information is protected by the Federal Confidentiality of Alcohol and Drug Abuse Patient Records regulations: The Federal rules restrict any use of the information to criminally investigate or prosecute any alcohol or drug abuse patient.[facility] Center[facility] the event this information is protected by the Federal Confidentiality of Alcohol and Drug Abuse Patient Records regulations: The Federal rules restrict any use of the information to criminally investigate or prosecute any alcohol or drug abuse patient.[facility] the event this information is protected by the Federal Confidentiality of Alcohol and Drug Abuse Patient Records regulations: The Federal rules restrict any use of the information to criminally investigate or prosecute any alcohol or drug abuse patient.[facility] the event this information is protected by the Federal Confidentiality of Alcohol and Drug Abuse Patient Records regulations: The Federal rules restrict any use of the information to criminally investigate or prosecute any alcohol or drug abuse patient.[facility] Center[facility] the event this information is protected by the Federal Confidentiality of Alcohol and Drug Abuse Patient Records regulations: The Federal rules restrict any use of the information to criminally investigate or prosecute any alcohol or drug abuse patient.[facility] FOR RECORDS PERTAINING TO PATIENTS WHO ARE OR HAVE BEEN ENROLLED IN A CHEMICAL DEPENDENCY/SUBSTANCEABUSE PROGRAM, SOME INFORMATION MAY BE OMITTED. This clinical summary was aggregated from multiple sources. Caution should be exercised in using it in the provision of clinical care. This summary normalizes information from multiple sources, and as a consequence, information in this document may materially change the coding, format and clinical context of patient data. In addition, data may be omitted in some cases. CLINICAL DECISIONS SHOULD BE BASED ON THE PRIMARY CLINICAL RECORDS. [facility] [employer] [facility]. provides no warranty or guarantee of the accuracy or completeness of information in this document.
--- NOTE | 2025-03-18 22:33 | PCM.HP.OB ---
HPI - General General Date of Admission: 03/18/25 Date of Service: 03/18/25 Chief Complaint: ROM HPI Narrative LEONOR MERCADO, is a 29 F who presents SROM at home. Increasing painful contractions. GBS negative. 3 cm on admission Maternal Data Information Final MARTI: 03/15/25 Gestational age: 40+3 PFSH PFS Medical History Narcolepsy Home Medications ?Medication ?Instructions ?Recorded ?Last Taken ?Type vit no.95-ferrous 2 tab PO DAILY 03/18/25 03/17/25 20:00 History fumarate 28 mg-folic acid 800 mcg 2 tabs tablet () Surgical History History of ankle surgery Social History Smoking Status: Never smoker History Elective abortions Hx Para 0 Spontaneous abortions Hx # Term Pregnancies Ectopic pregnancies Hx # Pregnancies Multiple births # of living children NST FHR Rate Baby A Baseline: 130 Variability:: Moderate Accelerations:: 15 x 15 Decelerations:: Variable FHR Category:: Category I and Category II Uterine Activity:: q2 ROS Constitutional Constitutional: Denies fatigue, fever(s) or malaise Eyes Eyes: Denies change in vision ENT HEENT: Denies dizziness or headache(s) Cardiovascular Cardiovascular: Denies chest pain, dyspnea or lightheadedness Respiratory/Chest Respiratory/Chest: Denies cough or dyspnea Gastrointestinal Gastrointestinal: Denies change in bowel habits Genitourinary Genitourinary: Denies burning urination or genital lesions Integumentary Integumentary: Denies rash Neurologic Neurologic: Denies confusion, dizziness, headache(s), numbness or weakness Vital Signs Vital Signs Vital Signs: 03/18/25 21:23 03/18/25 21:23 03/18/25 21:23 Temperature Temperature Source Temporal Pulse Rate 97 Respiratory Rate Blood Pressure 137/82 H BP Systolic 137 BP Diastolic 82 Pulse Ox 03/18/25 21:23 03/18/25 21:23 03/18/25 21:24 Temperature 97.7 F L Temperature Source Pulse Rate 99 Respiratory Rate 18 Blood Pressure BP Systolic BP Diastolic Pulse Ox 03/18/25 21:24 03/18/25 22:11 03/18/25 22:11 Temperature Temperature Source Pulse Rate 86 Respiratory Rate Blood Pressure BP Systolic BP Diastolic Pulse Ox 100 99 03/18/25 22:17 03/18/25 22:17 03/18/25 22:22 Temperature Temperature Source Pulse Rate 101 H 78 Respiratory Rate Blood Pressure BP Systolic BP Diastolic Pulse Ox 99 03/18/25 22:22 03/18/25 22:23 03/18/25 22:23 Temperature Temperature Source Pulse Rate 98 Respiratory Rate Blood Pressure BP Systolic BP Diastolic Pulse Ox 98 93 03/18/25 22:27 03/18/25 22:27 Temperature Temperature Source Pulse Rate 89 Respiratory Rate Blood Pressure BP Systolic BP Diastolic Pulse Ox 99 Weight Weight: 97.976 kg Body Mass Index (BMI) 30.9 Physical Exam Const alert and no apparent distress General Appearance: cooperative HEENT normocephalic Resp normal respiratory effort Cardio regular rate GI soft to palpation GI Narrative: gravid, nontender, appropriate for gestational age Extremity no calf tenderness General Extremity: edema Skin no wounds Rashes: No rashes noted Psych activity/motor behavior normal Labs Labs Labs: Blood Type Pending Antibody Screen Pending Hct 36.4 % (37-47) L Hgb 12.6 g/dL (12.0-15.0) Syphilis Total Ab Pending Assessment & Plan (1) SROM (spontaneous rupture of membranes): (2) 40 weeks gestation of : PLAN: Plan Admit for labor GBS negative Epidural prn
[2025-03-18 23:09] LABS: Syphilis Antibodies Nonreactive (Nonreactive)
[2025-03-19] VITALS (41 sets, daily range): BP systolic 112–145; BP diastolic 68–89; PULSE 77–117; RESP 14–16; TEMP 36–37; O2SAT 97–100
[2025-03-19] MEDS: LACTATED RINGERS 500 ML 999 ML IV (00:55)
[2025-03-19] MEDS: Lactated Ringers 1,000 ML 50 ML IV (00:55)
[2025-03-19] MEDS: Oxytocin 15 Units/NS 250ml 15 UNITS/250 ML IV.SOLN 334 UNITS IV (04:39)
[2025-03-19] MEDS: Lidocaine 1% (20 ml mdv) 20 ML Vial INFILT (04:55)
--- NOTE | 2025-03-19 05:04 | EX.PCM.OBVAG ---
Assessment & Plan (1) (spontaneous vaginal delivery): Maternal Data Information Final MARTI: 03/15/25 Gestational age: 40+4 Vaginal Delivery Maternal Presentation Maternal Presentation: Spontaneous Rupture of Membranes Vaginal Delivery Information Procedure Performed: Shoulder Dystocia Maneuvers Delivery maneuver performed for shoulder dystocia: Pedro maneuver Head to body interval: 00:30 Surgeon/Practitioner: Doris Ramirez Date of Procedure: 03/19/25 Pre-Procedure Diagnosis: SROM Post-Procedure Diagnosis: vaginal delivery Type of anesthesia: None and Local with 1% Lidocaine Estimated Blood Loss: 200 Time of Delivery: 04:36 Findings Description of procedure: Patient presented with SROM. Labored without augmentation. No epidural. Once complete, pushed for 1.5 hours delivering over an intact perineum. There was a cord around the neck, loose x 1. Also around the shoulder. Easily reduced. There was mild shoulder dystocia that resolved with Pedro. The rest of the body then delivered. The was placed on the maternal abdomen. The cord was clamped and cut. Cord blood was collected. The placenta delivered spontaneously. There was a second degree laceration repaired with 2-0 and 3-0 vicryl. All sponge, needle and lap counts were correct. Presentation: Vertex and KRISTIN Amniotic Membrane Rupture Type: Spontaneous Amniotic Fluid Description: Clear and Other (terminal mec) Placental Delivery Description: Spontaneous Placenta Disposition: [facility] Specimen collected: No Cord Vessel Description: 3 Vessels Cord Entanglement: Around neck x 1, loose and Other (around shoulder) Nuchal Cord Compression: Without compression A Gender: Male (1 minute): 7 (5 minute): 9 Delayed Cord Clamping: Yes Room Service Waiter/Waitress geriatric social worker: No Post Vaginal Deli Medications given after delivery: IV Pitocin Episiotomy Description: None Laceration: Midline and 2nd degree Complication Complications: No
[2025-03-19] MEDS: Oxytocin 15 Units/NS 250ml 15 UNITS/250 ML IV.SOLN 83 UNITS IV (05:10)
[2025-03-19] MEDS: Senna/Docusate Sodium 1 Tablet PO (13:30)
[2025-03-20] VITALS (7 sets, daily range): BP systolic 115–125; BP diastolic 63–72; PULSE 85–93; RESP 14–16; TEMP 36.4–36.6; O2SAT 97–98
--- NOTE | 2025-03-20 09:31 | PCM.PN.BLA ---
Progress Note Pain well controlled, average lochia. Physical Exam Const alert and no apparent distress Narrative: Fundus firm, below umbilicus. Assessment & Plan Assessment/Plan (1) (spontaneous vaginal delivery): PLAN: Plan doing well. Routine care. Desires d/c home today. and doing well
--- NOTE | 2025-03-20 09:32 | DCINST_ITS ---
Discharge Instructions DC O2, CPAP, BIPAP needs Home O2 Discharge instructions: No Dressing / Incision May resume sexual activity in: 6 weeks Follow Up Care Please Follow Up With: Doris Ramirez MD When: Follow up with our office in 1-2 and 6 weeks or as needed. [phone] Test Results: Test results from this visit will be discussed in further detail at your follow- up appointment, if applicable. Discharge Plan Admission Admit Date/Time: 03/18/25 21:43 Primary Reason for Your Visit: Vaginal delivery Attending Provider: Doris Ramirez Discharge Orders/Prescriptions Prescriptions: No Action PNV cmb#95-ferrous fumarate-FA [] 28 mg iron- 800 mcg tablet 2 tab PO DAILY Disposition Disposition (needs filled in before D/C Order can be placed): Home, Self Care
== END 2025-03-20 19:15 | disposition home or self-care (01) | DRG 807 ==
LOC: WPOUT 22:17 → WP 22:17
PROVIDERS: Admitting Provider Obstetrics & Gynecology; Referring Provider Obstetrics & Gynecology; Visit Provider Obstetrics & Gynecology
DX: O48.0 Post-term pregnancy (principal); Z37.0 Single live birth; O66.0 Obstructed labor due to shoulder dystocia; Z3A.40 40 weeks gestation of pregnancy; O69.81X0 Labor and delivery complicated by cord around neck, without compression, not applicable or unspecified; O70.1 Second degree perineal laceration during delivery
CPT/HCPCS: 59025; 59050; 84112; 85025; 86780; 86850; 86900; 86901; 99221; G0378